=== PATIENT | male | born 1990 | race Caucasian/White ===

== ENCOUNTER 2021-04-23 11:25 | Emergency (ER) | payer OTHER, SELFPAY ==
[2021-04-23 11:26] VITALS: BP 166/100; PULSE 102; RESP 16; TEMP 36.9; O2SAT 98; BMI 32.1
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
[2021-04-23 12:25] VITALS: BP 159/91; PULSE 88; RESP 18; TEMP 36.6; O2SAT 98
== END 2021-04-23 12:27 | disposition home or self-care (01) ==
PROVIDERS: Emergency Provider Family Medicine; PCP Family Medicine
DX: S30.1XXA Contusion of abdominal wall, initial encounter (principal); S80.12XA Contusion of left lower leg, initial encounter; S40.012A Contusion of left shoulder, initial encounter; S40.011A Contusion of right shoulder, initial encounter; V53.5XXA Driver of pick-up truck or van injured in collision with car, pick-up truck or van in traffic accident, initial encounter; Y92.488 Other paved roadways as the place of occurrence of the external cause
CPT/HCPCS: 71045; 99282

== ENCOUNTER → 2021-04-25 11:42 | Outpatient (CLI) | payer OTHER, SELFPAY ==
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
== END ==
PROVIDERS: PCP Family Medicine; Visit Provider Family Medicine
DX: M25.512 Pain in left shoulder (principal); V89.2XXD Person injured in unspecified motor-vehicle accident, traffic, subsequent encounter
CPT/HCPCS: 73030

== ENCOUNTER → 2021-05-09 11:27 | Outpatient (CLI) | payer OTHER, SELFPAY ==
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
== END ==
PROVIDERS: PCP Family Medicine; Visit Provider Family Medicine
DX: M25.572 Pain in left ankle and joints of left foot (principal); V89.2XXD Person injured in unspecified motor-vehicle accident, traffic, subsequent encounter
CPT/HCPCS: 73590; 73610

== ENCOUNTER 2024-06-21 08:33 | Outpatient (CLI) | payer OTHER, SELFPAY ==
--- NOTE | 2024-06-21 08:33 | US_ITS ---
FINAL REPORT TECHNIQUE: Sonographic images of the abdomen were obtained in all four quadrants. CLINICAL HISTORY: Possible gallbladder or pancreas disease COMPARISON: None FINDINGS: LIVER: Homogeneous. No focal hepatic lesion or intrahepatic biliary dilatation. GALLBLADDER: No gallstones. There is either mild gallbladder wall thickening or a tiny amount of pericholecystic fluid. The common duct measures 4 mm. This is within normal limits for age. PANCREAS: Partially obscured but the visualized portions are unremarkable. RIGHT KIDNEY: 9.9 cm. No hydronephrosis, mass or stone. LEFT KIDNEY: 10.0 cm. No hydronephrosis, mass or stone. SPLEEN: 12 cm. No focal splenic lesion. AORTA/IVC: No abdominal aortic aneurysm. Visualized IVC within normal limits. OTHER: No ascites. IMPRESSION: Mild gallbladder wall thickening or possibly a very small amount of pericholecystic fluid. No gallstones or common duct dilation. Recommend clinical correlation and consider MRCP if indicated. Otherwise unremarkable abdominal ultrasound. Reviewed, Interpreted and Dictated by Chula Feliz MD Transcribed by Rosamaria Barillas Authenticated and [facility]
--- NOTE | 2024-06-21 08:47 | XR_ITS ---
FINAL REPORT CLINICAL HISTORY: back pain x 1 month, no known trauma FINDINGS: PA and lateral views of the chest are obtained. There is no prior exam for comparison. The cardiac and mediastinal silhouettes are within normal limits. The lungs are clear. There is no pleural effusion, pneumothorax, or acute osseous abnormality. IMPRESSION: No radiographic evidence of acute cardiac or pulmonary disease. Reviewed, Interpreted and Dictated by Chula Feliz MD Transcribed by Tuyet Chavez Authenticated and [facility]
--- NOTE | 2024-06-21 08:47 | XR_ITS ---
FINAL REPORT CLINICAL HISTORY: back pain x 1 month, no known trauma FINDINGS: AP and lateral views of the thoracic spine were obtained. There is no prior exam for comparison. There is no acute fracture or acute malalignment. Vertebral body height is preserved. Disc space height is preserved. No acute paraspinal abnormality. IMPRESSION: No acute osseous abnormality of the thoracic spine. Reviewed, Interpreted and Dictated by Chula Feliz MD Transcribed by Tuyet Chavez Authenticated and . [facility]
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
[2024-06-21 09:34] LABS: Basophils # 0.1 K/mm3 (0-0.2); Basophils % 0.5 % (0.1-2.0); Eosinophils # 0.2 K/mm3 (0.0-0.4); Eosinophils % 1.8 % (0.1-12.0); Hematocrit 46.4 % (42.0-52.0); Hemoglobin 15.2 g/dL (14.1-18.0); Lymphocytes # 2.5 K/mm3 (0.7-4.5); Lymphocytes % 25.5 % (10-50); Mean Corpuscular HGB Conc 32.8 g/dL (31.8-35.4); Mean Corpuscular Hemoglobin 28.1 pg (27.0-31.2); Mean Corpuscular Volume 85.8 fl (80-94); Mean Platelet Volume 10.7 fl (7.4-10.4); Monocytes # 0.7 K/mm3 (0.1-1.0); Monocytes % 6.7 % (1.7-9.3); Neutrophils # 6.3 K/mm3 (1.8-7.8); Neutrophils % 65.1 % (37.0-80.0); Platelet Count 285 K/mm3 (142-424); Red Blood Count 5.41 M/mm3 (4.60-6.20); White Blood Count 9.8 K/mm3 (4.8-10.8)
[2024-06-21 09:58] LABS: Albumin Level 4.3 g/dl (3.5-5.0); Chloride 107 mmol/L (98-107); Estimated Glomerular Filt Rate 63 ml/min (>60); GFR (African American) 76 ML/MIN (>60); Potassium 4.5 mmoL/L (3.5-5.1); Sodium 141 mmol/L (136-145); VLDL Cholesterol 16 mg/dL (0-40)
[2024-06-21 09:59] LABS: Alanine Aminotransferase 32 U/L (12-78); Alkaline Phosphatase 64 U/L (38-126); Aspartate Amino Transferase 30 U/L (17-59); Bilirubin,Total 0.9 mg/dl (0.2-1.3); Blood Urea Nitrogen 8 mg/dl (9-20); Calcium 9.3 mg/dl (8.4-10.2); Carbon Dioxide 28 mmol/L (22.0-30.0); Chol/HDL Ratio 4.5 (1-3.5); Cholesterol 177 mg/dl (140-200); Glucose 94 mg/dl (74-100); HDL Cholesterol 39 mg/dl (40-60); Total Protein,Serum 6.3 g/dl (6.3-8.2); Triglycerides 78 mg/dl (30-150)
[2024-06-21 10:04] LABS: Albumin/Globulin Ratio 2.2 (1.1-1.8); Anion Gap 10.5 mEq/L (5-15)
[2024-06-21 10:09] LABS: Direct LDL Cholesterol 118.46 mg/dL (100-129)
== END 2024-06-21 23:59 | disposition home or self-care (01) ==
PROVIDERS: PCP Family Medicine; Visit Provider Family Medicine
DX: M54.9 Dorsalgia, unspecified (principal)
CPT/HCPCS: 36415; 71046; 72070; 72100; 76700; 80053; 80061; 85025

== ENCOUNTER 2024-09-21 07:26 | Day surgery (SDC) | payer OTHER, SELFPAY ==
[2024-09-20 14:58] VITALS: BMI 34.4
[2024-09-21 07:47] VITALS: BP 158/106; PULSE 94; RESP 18; TEMP 36.3; O2SAT 100
--- NOTE | 2024-09-21 08:33 | P.HP_ITS ---
HPI HPI HPI: This is a 34-year-old gentleman who presents for esophagogastroduodenoscopy. He notes intermittent left upper quadrant/left flank pain. He also has experienced some recent dyspepsia/belching, as well as, nausea/vomiting. Some improvement noted on proton pump inhibition. No melena. No hematemesis. Recent ultrasound revealed mild gallbladder wall thickening and questionable small pericholecystic fluid. No fevers. No jaundice. No right upper quadrant pain. [facility] Disclaimer: The information contained in this section may have been updated after the patient was seen, as this information can be updated by other users. Medical History (Updated 09/21/24 @ 08:36 by Hal Jones MD) Upper abdominal pain History of esophageal dilatation Surgical History Hx of esophagogastroduodenoscopy Hx of tonsillectomy Family History No significant family history Social History Smoking Status: Never smoker alcohol intake: never substance use type: denies use current occupational status: employed Travel in the last 8 weeks: None Have you lived/traveled outside [place] in past 30 days?: No Contact w/someone who lives/traveled outside US past 30 days?: No Exposure to someone with infectious disease in past 14 days?: No Do you have a fever (greater than 100.4 F or 38 C)?: No Have you tested positive for COVID-19: No Exposed to someone with COVID-19 in past 14 days?: No Do you have a sore throat?: No Do you have a cough?: No Do you have any weakness?: No Are you experiencing any nausea/vomitting?: No Do you have any diarrhea?: No Are you experiencing any unusual bleeding?: No Do you have any muscle aches/pain?: No Do you have any abdominal pain?: No Are you experiencing loss of taste or smell?: No Other Medical History Have you received the Flu Vaccine for this season: No Have you received the Pneumonia Vaccine: No Review of Systems Review of Systems Review of systems:: pertinent systems reviewed and negative unless documented below Meds Home Medications and Allergies Home Medications ?Medication ?Instructions ?Recorded ?Confirmed ?Type omeprazole 40 mg capsule,delayed 40 mg PO BID reflux #60 caps 07/19/24 09/21/24 Rx release New Prescriptions to Start Prescriptions: Allergies Allergy/AdvReac Type Severity Reaction Status Date / Time Penicillins Allergy Other Verified 09/21/24 07:46 Sulfa (Sulfonamide Allergy Other Verified 09/21/24 07:46 Antibiotics) Exam Data for Last 24 hours Vital signs and Labs for Last 24 Hours: Temp Pulse Resp BP Pulse Ox O2 Del Method 97.3 F L 94 H 18 158/106 H 100 Room Air 09/21/24 07:47 09/21/24 07:47 09/21/24 07:47 09/21/24 07:47 09/21/24 07:47 09/21/24 07:47 I & O for Last 24 hours: Intake & Output 09/18/24 09/19/24 09/20/24 09/21/24 11:59 11:59 11:59 11:59 Weight 240 lb Constitutional Constitutional: no acute distress *Routine HEENT Exam Head: Present normocephalic Eye: Present EOMI ENT: Present mucous membranes moist *Routine Neck Exam Neck: Present full ROM *Routine Respiratory Exam Respiratory: Absent respiratory distress *Routine Cardiovascular Exam Cardiovascular: Absent tachycardia *Routine Abdominal Exam Abdominal: Present soft *Routine Rectal Exam Rectal:: deferred *Routine Genitalia Exam Genitalia:: deferred *Routine Extremities Exam Extremities: Present full ROM *Routine Skin Exam Skin: Absent erythema *Routine Neurological Exam Neurological: Present alert Assessment and Plan *Assessment and plan (1) Left flank pain: Status: Acute Category: Medical Code(s): R10.9 - Unspecified abdominal pain Plan: Continue proton pump enervation Esophagogastroduodenoscopy today I have discussed the risks and benefits including, but not limited to: Bleeding Infection Damage to surrounding tissue Inherent risks of sedation The patient agrees to proceed. (2) Left upper quadrant abdominal pain: Status: Acute Category: Medical Code(s): R10.12 - Left upper quadrant pain (3) Dyspepsia: Status: Acute Category: Medical Code(s): R10.13 - Epigastric pain (4) Cholecystitis, chronic: Status: Acute Category: Medical Code(s): K81.1 - Chronic cholecystitis Plan: Discussion with regard to possible cholecystectomy will be ongoing
[2024-09-21 08:37] VITALS: O2SAT 100
[2024-09-21 08:53] VITALS: BP 150/96; PULSE 92; RESP 17; TEMP 36.6; O2SAT 93
--- NOTE | 2024-09-21 08:53 | HMH.SCOPE ---
Procedure: Date: 09/21/24 Patient Date of :: 1990 Procedure Performed:: Esophagogastroduodenoscopy with biopsy Indications:: Left upper quadrant pain Dyspepsia Abdominal bloating Performing Provider:: Hal Jones MD Referring Provider:: . Sedation:: Monitored anesthesia care Procedure:: After informed consent was obtained the patient was taken to the endoscopy suite. Sedation ensued after the patient was transferred to the left lateral decubitus position. Pulse, blood pressure, and oxygen saturation were monitored throughout the procedure. The endoscope was advanced beyond the duodenal bulb. Retroflexion within the gastric lumen was accomplished. The gastroscope was carefully removed and the patient was transferred to recovery in stable condition. Please see findings and specimens below for detail. Findings:: Gastroesophageal junction at 40 cm Small distal esophageal diverticulae Gastroesophageal junction polyp Small sliding hiatal hernia Moderate amount of food particles within the stomach Specimens:: Antral biopsy Gastroesophageal junction polyp (cold biopsy forceps) Recommendations:: Follow-up pathology Note recent ultrasound findings consistent with possible chronic cholecystitis. Discussion with regard to possible laparoscopic cholecystectomy in near future will be ongoing. Complications:: No immediate Estimated blood obtained (mL): 1 Colonoscopy Component Colonoscopy Component Was a colonoscopy performed during today's procedure?: No
[2024-09-21 09:03] VITALS: BP 139/88; PULSE 89; RESP 17; O2SAT 94
[2024-09-21 09:13] VITALS: BP 152/99; PULSE 86; O2SAT 96
[2024-09-21 09:23] VITALS: BP 146/73; PULSE 77; RESP 17; O2SAT 96
--- NOTE | 2024-09-21 09:29 | P.PNANES_ITS ---
[facility] Disclaimer: The information contained in this section may have been updated after the patient was seen, as this information can be updated by other users. Medical History (Updated 09/21/24 @ 08:36 by Hal Jones MD) Upper abdominal pain History of esophageal dilatation Surgical History Hx of esophagogastroduodenoscopy Hx of tonsillectomy Family History Other No significant family history Social History Smoking Status: Never smoker alcohol intake: never substance use type: denies use current occupational status: employed Travel in the last 8 weeks: None [facility] Anesthesia Checklist Patient Identification Patient Identification: Verbal (Name & ) Structural Data Admitted From: Home Planned Operative Procedure/s: egd NPO Status Verified Time NPO: 00:00 Airway Assessment Mallampati Score:: Class II C-Spine Mobility Assessed: Yes TMJ Mobility Assessed: Yes Dentition: Good Dentition Neurological Assessment Level of Consciousness: Awake, Alert and Appropriate Anesthesia Plan Anesthesia Risk discussed: Yes Anesthesia Plan: Verified ASA Class: II Anesthesia Type: MAC
== END 2024-09-21 09:27 | disposition home or self-care (01) ==
PROVIDERS: PCP Family Medicine; Visit Provider Surgery
PROC: 0DJ08ZZ Inspection of Upper Intestinal Tract, Via Natural or Artificial Opening Endoscopic (ICD-10-PCS; CPT 43239; principal; 2024-09-21 08:30)
DX: R10.12 Left upper quadrant pain (principal); K81.1 Chronic cholecystitis; K30 Functional dyspepsia; R11.2 Nausea with vomiting, unspecified; R14.0 Abdominal distension (gaseous); K57.90 Diverticulosis of intestine, part unspecified, without perforation or abscess without bleeding; K31.7 Polyp of stomach and duodenum
CPT/HCPCS: 43239

== ENCOUNTER 2025-04-26 12:27 | Outpatient (CLI) | payer OTHER, SELFPAY ==
--- OUTSIDE RECORDS SUMMARY | 2025-04-26 12:30 | XMS_ITS | Clinical Summary ---
Author Organization [facility] Address [address] [place] [address] Care Team Providers Care Agricultural Equipment Test Engineer Name Role Phone Robbie Ca MD Primary Care Provider [phone] Allergies Active Allergy Reactions Criticality Noted Date Comments Penicillins Hives Low 12/19/2024 Has tolerated cefazolin, ceftriaxone Most patients no longer allergic to penicillin after ~10 years Beta lactam allergy details Antibiotic reaction: rash Age at reaction: child Dose to reaction time: unknown Reason for antibiotic: unknown Epinephrine required for reaction?: unknown Tolerated antibiotics: cefazolin, ceftriaxone Sulfa Antibiotics Hives 12/19/2024 Medications oxyCODONE-aceta minophen (PERCOCET) 5-325 MG per tabletIndicatio ns:Choledocholi thiasis Take 1 tablet by mouth Every 4 (Four) Hours As Needed for Severe Pain. 17 tablet 12/25/2024 10:51 AM EDT 12/25/2024 Active docusate sodium (COLACE) 100 MG capsule Take 1 capsule by mouth 2 (Two) Times a Day. 60 capsule 12/25/2024 10:51 AM EDT 12/25/2024 Active ondansetron (ZOFRAN) 4 MG tablet Take 1 tablet by mouth Every 8 (Eight) Hours As Needed for Nausea or Vomiting. 30 tablet 12/25/2024 10:51 AM EDT 12/25/2024 Active Active Problems Problem Noted Date Diagnosed Date Severe protein-calorie malnutrition 01/20/2025 Abdominal pain 12/28/2024 Sepsis without acute organ dysfunction Bandemia 12/27/2024 Dehydration 12/27/2024 Nausea with vomiting 12/27/2024 Post-ERCP acute pancreatitis 12/23/2024 Choledocholithiasis 12/21/2024 Encounters Date Type Department Care Team Description 12/27/2024 6:33 PM EDT - 02/10/2025 4:11 AM EDT Hospital Encounter [address] [place] [id number] Vipul Alves DO Gay, Bryce, DO Burgess, Eva, MD Scott, MD Sunitha Benton Oshuare, MD Cordray, Ann, MD West, MD Sammie Guadalupe M Scott, DO Generalized abdominal pain (Primary Dx); Leukocytosis, unspecified type; Status post cholecystectomy; Nausea and vomiting, unspecified vomiting type; Moderate protein-calorie malnutrition; Post-ERCP acute pancreatitis Discharge Disposition: Short Term Hospital (DC) from Last 3 Months Social History Tobacco Use Types Packs/Day Years Used Date Smoking Tobacco: Never Smokeless Tobacco: Never Tobacco Cessation:Counseling Given: Not Answered Alcohol Use Standard Drinks/Week Comments Never 0 (1 standard drink = 0.6 oz pur e alcohol) [facility] Utilities Answer Date Recorded In the past 12 months has [employer], gas, oil, or water [employer] threatened to shut off services in your home? No 12/21/2024 AUDIT-C Answer Date Recorded Q1: How often do you have a drink containing alcohol? Never 12/27/2024 Q2: How many drinks containi ng alcohol do you have on a typical day when you are drinking? Patient does not drink Q3: How often do you have si x or more drinks on one occasion? Never 12/27/2024 Overall Financial Resource Strain (CARDIA) Answe r Date Recorded How hard is it for you to pa y for the very basics like food, housing, medical care, and heating? Not hard at all 12/21/2024 [facility] Occup[facility] ional [facility] - Occupational Stress Questionnaire Answer Date Recorded Do you feel stress - tense, restless, nervous, or anxious, or unable to sleep at night because your mind is troubled all the time - these days? Only a little 12/21/2024 Exercise Vital Sign Answer Date Recorde d On average, how many days pe r week do you engage in moderate to strenuous exercise (like a brisk walk)? 7 days 12/21/2024 On average, how many minutes do you engage in exercise at this level? 30 min 12/21/2024 Hunger Vital Sign Answer Date Recorded Within the past 12 months, y ou worried that your food would run out before you got the money to buy more. Never true 12/22/19 25 Within the past 12 months, t he food you bought just didn't last and you didn't have money to get more. Never true 12/21/2024 PRAPARE - Transportation Answer Date Re corded In the past 12 months, has l ack of transportation kept you from medical appointments or from getting medications? No 06/2024 In the past 12 months, has l ack of transportation kept you from meetings, work, or from getting things needed for daily living? No 12/21/2024 Abuse Screen Answer Date Recorded Feels Unsafe at Home or Work/School no 12/27/2024 Feels Threatened by Someone no 12/2024 Does Anyone Try to Keep You From Having Contact with Others or Doing Things Outside Your Home? no 12/27/2024 Physical Signs of Abuse Present no 12/27/2024 Housing Stability Answer Date Recorded Current Living Arrangements home 12/21 Potentially Unsafe Housing Conditions none 01/03/2025 Family and Community Support Answer Willian e Recorded If for any reason you need h elp with day-to-day activities such as bathing, preparing meals, shopping, managing finances, etc., do you get the help you need? I don't need any help 12/21/2024 Lonely or Isolated Not on file 12/21/2024 Employment Answer Date Recorded Do you want help finding or keeping work or a job? I do not need or want help 12/21/2024 Disabilities Answer Date Recorded Difficulty Concentrating, Remembering or Making Decisions no 12/27/2024 Difficulty Managing Errands Independently no 12/27/2024 Education Answer Date Recorded Do you want help with school or training? For example, starting or completing job training or getting a high school diploma, GED or equivalent No 12/21/2024 Preferred Language Stateless 12/21/2024 PHQ-2 Answer Date Recorded Patient Health Questionnaire-2 Score 0 12/21/2024 Sex and Gender Information Value Date Recorded Sex Assigned at Not on file Legal Sex Male 4:40 PM EDT Gender Identity Not on file Sexual Orientation Not on file Last Filed Vital Signs Vital Sign Reading Time Taken Comments Blood Pressure 117/81 02/10/2025 3:00 AM EDT Pulse 118 02/10/2025 3:00 AM EDT Temperature 36.7 C (98.1 F) 02/10/2025 3:00 AM EDT Respiratory Rate 18 02/10/2025 3:00 AM EDT Oxygen Saturation 98% 02/10/2025 3:00 AM EDT Inhaled Oxygen Concentration - - Weight 116 kg (255 lb 6.4 oz) 02/09/2025 5:00 AM EDT Height 177.8 cm (5' 10 ) 12/27/2024 2:55 PM EDT Body Mass Index 36.65 12/27/2024 2:55 PM EDT Plan of Treatment Health Maintenance Due Date Last Done Comments ANNUAL PHYSICAL 1989 TDAP/TD VACCINES (1 - Tdap) 2008 INFLUENZA VACCINE 01/21/2025 HEPATITIS C SCREENING Completed 12/19/2024 Pneumococcal Vaccine 0-49 Aged Out No longer eligible based on patient's age to complete this topic Medical Devices Implanted Type Area Dry End Operator Device Identifier Shelf Expiration Date Model / Serial / Lot Clipapplr M/ Endo Ligaclip Rot 10mm /Lg - [id number] Implanted:Qty : 1 on 12/23/2024 by Yefri Heller MD at [facility] Implant N/A: Abdomen [employer] [id number] 08/20/2029 [id number] / / [id number] Procedures Procedure Name Priority Date/Time Associated Diagnosis Comments POCT GLUCOSE FINGERSTICK Routine 02/10/2025 12:22 AM EDT POCT GLUCOSE FINGERSTICK Routine 02/09/2025 5:39 PM EDT BODY FLUID CULTURE Routine 02/09/2025 2: 20 PM EDT BODY FLUID CULTURE Routine 02/09/2025 2: 20 PM EDT POCT GLUCOSE FINGERSTICK Routine 02/09/2025 11:22 AM EDT POCT GLUCOSE FINGERSTICK Routine 02/09/2025 5:20 AM EDT CBC AND DIFFERENTIAL Routine 02/09/2025 3:39 AM EDT MANUAL DIFFERENTIAL STAT 02/09/2025 3 :39 AM EDT CBC WITH AUTO DIFFERENTIAL Routine 02/09/2025 3:39 AM EDT COMPREHENSIVE METABOLIC PANEL Routine 02/09/2025 3:39 AM EDT MAGNESIUM Routine 02/09/2025 3:39 AM EDT POCT GLUCOSE FINGERSTICK Routine 02/08/2025 11:47 PM EDT POCT GLUCOSE FINGERSTICK Routine 02/08/2025 12:37 PM EDT POCT GLUCOSE FINGERSTICK Routine 02/08/2025 5:15 AM EDT COMPREHENSIVE METABOLIC PANEL Routine 02/08/2025 3:03 AM EDT MAGNESIUM Routine 02/08/2025 3:03 AM EDT CBC AND DIFFERENTIAL Routine 02/08/2025 3:02 AM EDT MANUAL DIFFERENTIAL STAT 02/08/2025 3 :02 AM EDT CBC WITH AUTO DIFFERENTIAL Routine 02/08/2025 3:02 AM EDT POCT GLUCOSE FINGERSTICK Routine 02/07/2025 11:56 PM EDT POCT GLUCOSE FINGERSTICK Routine 02/07/2025 5:[address] ABDOMEN PELVIS W CONTRAST Routine 02/07/2025 2:14 PM EDT POCT GLUCOSE FINGERSTICK Routine 02/07/2025 11:48 AM EDT BLOOD CULTURE Routine 02/07/2025 11:30 AM EDT POCT GLUCOSE FINGERSTICK Routine 02/07/2025 5:40 AM EDT CBC AND DIFFERENTIAL Routine 02/07/2025 3:52 AM EDT LIPASE Add-On 02/07/2025 3:52 AM EDT MANUAL DIFFERENTIAL STAT 02/07/2025 3 :52 AM EDT CBC WITH AUTO DIFFERENTIAL Routine 02/07/2025 3:52 AM EDT MAGNESIUM Routine 02/07/2025 3:52 AM EDT C-REACTIVE PROTEIN Routine 02/07/2025 3: 52 AM EDT COMPREHENSIVE METABOLIC PANEL Routine 02/07/2025 3:52 AM EDT POCT GLUCOSE FINGERSTICK Routine 02/06/2025 11:39 PM EDT POCT GLUCOSE FINGERSTICK Routine 02/06/2025 6:00 PM EDT POCT GLUCOSE FINGERSTICK Routine 02/06/2025 11:34 AM EDT POCT GLUCOSE FINGERSTICK Routine 02/06/2025 4:59 AM EDT COMPREHENSIVE METABOLIC PANEL Routine 02/06/2025 3:04 AM EDT CBC (NO DIFF) Routine 02/06/2025 3:04 AM EDT POCT GLUCOSE FINGERSTICK Routine 02/06/2025 12:46 AM EDT POCT GLUCOSE FINGERSTICK Routine 02/05/2025 5:07 AM EDT BASIC METABOLIC PANEL Routine 02/05/2025 3:01 AM EDT POCT GLUCOSE FINGERSTICK Routine 02/05/2025 12:00 AM EDT POCT GLUCOSE FINGERSTICK Routine 02/04/2025 5:08 PM EDT POCT GLUCOSE FINGERSTICK Routine 02/04/2025 11:09 AM EDT POCT GLUCOSE FINGERSTICK Routine 02/04/2025 5:02 AM EDT C-REACTIVE PROTEIN Routine 02/04/2025 3: 32 AM EDT COMPREHENSIVE METABOLIC PANEL Routine 02/04/2025 3:32 AM EDT CBC (NO DIFF) Routine 02/04/2025 3:32 AM EDT POCT GLUCOSE FINGERSTICK Routine 02/04/2025 12:34 AM EDT POCT GLUCOSE FINGERSTICK Routine 02/03/2025 6:05 PM EDT POCT GLUCOSE FINGERSTICK Routine 02/03/2025 11:49 AM EDT POCT GLUCOSE FINGERSTICK Routine 02/03/2025 5:26 AM EDT POCT GLUCOSE FINGERSTICK Routine 02/03/2025 12:21 AM EDT POCT GLUCOSE FINGERSTICK Routine 02/02/2025 5:31 PM EDT C-REACTIVE PROTEIN Routine 02/02/2025 4: 17 PM EDT PREALBUMIN Routine 02/02/2025 4:17 PM EDT POCT GLUCOSE FINGERSTICK Routine 02/02/2025 11:59 AM EDT POCT GLUCOSE FINGERSTICK Routine 02/02/2025 6:12 AM EDT CBC AND DIFFERENTIAL Routine 02/02/2025 3:49 AM EDT CBC WITH AUTO DIFFERENTIAL Routine 02/02/2025 3:49 AM EDT PHOSPHORUS Routine 02/02/2025 3:49 AM EDT MAGNESIUM Routine 02/02/2025 3:49 AM EDT BASIC METABOLIC PANEL Routine 02/02/2025 3:49 AM EDT POCT GLUCOSE FINGERSTICK Routine 02/01/2025 11:48 PM EDT POCT GLUCOSE FINGERSTICK Routine 02/01/2025 6:20 PM EDT POCT GLUCOSE FINGERSTICK Routine 02/01/2025 11:10 AM EDT POCT GLUCOSE FINGERSTICK Routine 02/01/2025 5:15 AM EDT CBC AND DIFFERENTIAL Routine 02/01/2025 3:43 AM EDT SCAN SLIDE Routine 02/01/2025 3:43 AM EDT CBC WITH AUTO DIFFERENTIAL Routine 02/01/2025 3:43 AM EDT PHOSPHORUS Routine 02/01/2025 3:43 AM EDT MAGNESIUM Routine 02/01/2025 3:43 AM EDT BASIC METABOLIC PANEL Routine 02/01/2025 3:43 AM EDT POCT GLUCOSE FINGERSTICK Routine 01/31/2025 11:15 PM EDT POCT GLUCOSE FINGERSTICK Routine 01/31/2025 6:10 PM EDT POCT GLUCOSE FINGERSTICK Routine 01/31/2025 11:37 AM EDT POCT GLUCOSE FINGERSTICK Routine 01/31/2025 5:27 AM EDT CBC AND DIFFERENTIAL Routine 01/31/2025 3:42 AM EDT MANUAL DIFFERENTIAL STAT 01/31/2025 3 :42 AM EDT CBC WITH AUTO DIFFERENTIAL Routine 01/31/2025 3:42 AM EDT COMPREHENSIVE METABOLIC PANEL Routine 01/31/2025 3:[address] ABDOMEN W WO CONTRAST Routine 01/31/2025 2:58 AM EDT POCT GLUCOSE FINGERSTICK Routine 01/31/2025 12:02 AM EDT POCT GLUCOSE FINGERSTICK Routine 01/30/2025 4:13 PM EDT POCT GLUCOSE FINGERSTICK Routine 01/30/2025 11:52 AM EDT CBC AND DIFFERENTIAL Routine 01/30/2025 8:57 AM EDT CBC WITH AUTO DIFFERENTIAL Routine 01/30/2025 8:57 AM EDT COMPREHENSIVE METABOLIC PANEL Routine 01/30/2025 8:57 AM EDT POCT GLUCOSE FINGERSTICK Routine 01/30/2025 5:27 AM EDT POCT GLUCOSE FINGERSTICK Routine 01/29/2025 11:40 PM EDT POCT GLUCOSE FINGERSTICK Routine 01/29/2025 5:29 PM EDT POCT GLUCOSE FINGERSTICK Routine 01/29/2025 11:04 AM EDT POCT GLUCOSE FINGERSTICK Routine 01/29/2025 5:21 AM EDT CBC AND DIFFERENTIAL Routine 01/29/2025 4:12 AM EDT CBC WITH AUTO DIFFERENTIAL Routine 01/29/2025 4:12 AM EDT COMPREHENSIVE METABOLIC PANEL Routine 01/29/2025 4:12 AM EDT POCT GLUCOSE FINGERSTICK Routine 01/28/2025 11:39 PM EDT POCT GLUCOSE FINGERSTICK Routine 01/28/2025 5:22 PM EDT POCT GLUCOSE FINGERSTICK Routine 01/28/2025 11:03 AM EDT POCT GLUCOSE FINGERSTICK Routine 01/28/2025 5:37 AM EDT CBC AND DIFFERENTIAL Routine 01/28/2025 3:36 AM EDT CBC WITH AUTO DIFFERENTIAL Routine 01/28/2025 3:36 AM EDT COMPREHENSIVE METABOLIC PANEL Routine 01/28/2025 3:36 AM EDT POCT GLUCOSE FINGERSTICK Routine 01/27/2025 11:50 PM EDT POCT GLUCOSE FINGERSTICK Routine 01/27/2025 5:43 PM EDT POCT GLUCOSE FINGERSTICK Routine 01/27/2025 11:48 AM EDT POCT GLUCOSE FINGERSTICK Routine 01/27/2025 5:05 AM EDT CBC AND DIFFERENTIAL Routine 01/27/2025 3:41 AM EDT CBC WITH AUTO DIFFERENTIAL Routine 01/27/2025 3:41 AM EDT SEDIMENTATION RATE Routine 01/27/2025 3: 41 AM EDT COMPREHENSIVE METABOLIC PANEL Routine 01/27/2025 3:40 AM EDT POCT GLUCOSE FINGERSTICK Routine 01/26/2025 11:26 PM EDT POCT GLUCOSE FINGERSTICK Routine 01/26/2025 6:13 PM EDT POCT GLUCOSE FINGERSTICK Routine 01/26/2025 11:04 AM EDT POCT GLUCOSE FINGERSTICK Routine 01/26/2025 5:33 AM EDT CBC AND DIFFERENTIAL Routine 01/26/2025 3:41 AM EDT CBC WITH AUTO DIFFERENTIAL Routine 01/26/2025 3:41 AM EDT COMPREHENSIVE METABOLIC PANEL Routine 01/26/2025 3:41 AM EDT POCT GLUCOSE FINGERSTICK Routine 01/25/2025 11:35 PM EDT POCT GLUCOSE FINGERSTICK Routine 01/25/2025 11:38 AM EDT POCT GLUCOSE FINGERSTICK Routine 01/25/2025 5:05 AM EDT CBC AND DIFFERENTIAL Routine 01/25/2025 3:27 AM EDT CBC WITH AUTO DIFFERENTIAL Routine 01/25/2025 3:27 AM EDT PHOSPHORUS Routine 01/25/2025 3:27 AM EDT MAGNESIUM Routine 01/25/2025 3:27 AM EDT COMPREHENSIVE METABOLIC PANEL Routine 01/25/2025 3:27 AM EDT POCT GLUCOSE FINGERSTICK Routine 01/25/2025 12:09 AM EDT POCT GLUCOSE FINGERSTICK Routine 01/24/2025 5:36 PM EDT C-REACTIVE PROTEIN Routine 01/24/2025 4: 30 PM EDT PREALBUMIN Routine 01/24/2025 4:30 PM EDT NUTRITION PANEL Routine 01/24/2025 4:30 PM EDT POCT GLUCOSE FINGERSTICK Routine 01/24/2025 12:54 PM EDT BODY FLUID CELL COUNT Routine 01/24/2025 11:55 AM EDT AMYLASE, BODY FLUID Routine 01/24/2025 1 1:55 AM EDT BODY FLUID CELL COUNT WITH DIFFERENTIAL Routine 01/24/2025 11:55 AM EDT FUNGAL CULTURE Routine 01/24/2025 11:55 AM EDT ANAEROBIC CULTURE Routine 01/24/2025 11: 55 AM EDT BODY FLUID CULTURE Routine 01/24/2025 11 :[address] GUIDED PERCUTANEOUS DRAIN RETROPERITONEAL Routine 01/24/2025 11:53 AM EDT PROTIME-INR STAT 01/24/2025 9:24 AM EDT POCT GLUCOSE FINGERSTICK Routine 01/24/2025 5:29 AM EDT CBC AND DIFFERENTIAL Routine 01/24/2025 3:22 AM EDT CBC WITH AUTO DIFFERENTIAL Routine 01/24/2025 3:22 AM EDT PHOSPHORUS Routine 01/24/2025 3:22 AM EDT MAGNESIUM Routine 01/24/2025 3:22 AM EDT COMPREHENSIVE METABOLIC PANEL Routine 01/24/2025 3:22 AM EDT HEPATITIS PANEL, ACUTE Add-On 4:53 PM EDT from Last 3 Months or Most Recently Relevant to Health Maintenance Results * (ABNORMAL) POC Glucose Q6H (02/10/2025 12:22 AM EDT) Only the most recent of64 resultswithin the time period is included. Glucose 139(H) 70 - 130 mg/dL 02/10/2025 12:24 AM EDT [facility] Comment:Serial Number: [id number] Blood 02/10/2025 12:2 2 AM EDT 02/10/2025 12:24 AM EDT Cheri Munguia MD POINT OF CARE TEST ORDERABLES Fi nal Result [facility]
[address] [place] [address], * Body Fluid Culture - Body Fluid, Retroperitoneum (02/09/2025 2:20 PM EDT) Only the most recent of3 resultswithin the time period is included. Body Fluid Culture No growth at 3 days 02/12/2025 10:02 AM EDT [facility] Gram Stain No WBCs or organisms seen 02/12/2025 10:02 AM EDT [facility] Body Fluid Retroperitoneal compartment structure / Unknown Collection / Unknown 02/09/2025 2:20 PM EDT 02/09/2025 3:18 PM EDT Jose De Jesus Shaw MD MICROBIOLOGY - GENERAL ORD ERABLES Final Result [facility]
[address] [place] [address], [place] [phone] [facility]
[address] [place] [address], * (ABNORMAL) CBC Auto Differential (02/09/2025 3:39 AM EDT) Only the most recent of13 resultswithin the time period is included. WBC 10.65 3.40 - 10.80 10*3/mm3 02/09/2025 6:48 AM EDT [facility] RBC 3.19(L) 4.14 - 5.80 10*6/mm3 02/09/2025 6:48 AM EDT [facility] Hemoglobin 9.0(L) 13.0 - 17.7 g/dL 02/09/2025 6:48 AM EDT [facility] Hematocrit 29.1(L) 37.5 - 51.0 % 02/09/2025 6:48 AM EDT [facility] MCV 91.2 79.0 - 97.0 fL 02/09/2025 6:48 AM EDT [facility] MCH 28.2 26.6 - 33.0 pg 02/09/2025 6:48 AM EDT [facility] MCHC 30.9(L) 31.5 - 35.7 g/dL 02/09/2025 6:48 AM EDT [facility] RDW 22.0(H) 12.3 - 15.4 % 02/09/2025 6:48 AM EDT [facility] RDW-SD 70.1(H) 37.0 - 54.0 fl 02/09/2025 6:48 AM EDT [facility] MPV 9.9 6.0 - 12.0 fL 02/09/2025 6:48 AM EDT [facility] Platelets 210 140 - 450 10*3/mm3 02/09/2025 6:48 AM EDT [facility] Blood Venipuncture / Unknown 02/09/2025 3:39 AM EDT 02/09/2025 4:35 AM EDT Narrative [facility] - 02/09/2025 6:48 AM EDT The previously reported component NRBC is no longer being reported. Previous result was 0.0 /100 WBC (Reference Range: 0.0-0.2 /100 WBC) on 02/09/2025 at 0447 EDT. Oli Cochran DO LAB BLOOD ORDERABLES Final Res ult [facility]
[address] [place] [address], * (ABNORMAL) Manual Differential (02/09/2025 3:39 AM EDT) Only the most recent of4 resultswithin the time period is included. Neutrophil % 66.0 42.7 - 76.0 % 02/09/2025 6:48 AM EDT [facility] Lymphocyte % 4.0(L) 19.6 - 45.3 % 02/09/2025 6:48 AM EDT [facility] Monocyte % 9.0 5.0 - 12.0 % 02/09/2025 6:48 AM EDT [facility] Eosinophil % 2.0 0.3 - 6.2 % 02/09/2025 6:48 AM EDT [facility] Basophil % 1.0 0.0 - 1.5 % 02/09/2025 6:48 AM EDT [facility] Bands % 15.0(H) 0.0 - 5.0 % 02/09/2025 6:48 AM EDT [facility] Atypical Lymphocyte % 3.0 0.0 - 5.0 % 02/09/2025 6:48 AM EDT [facility] Neutrophils Absolute 8.63(H) 1.70 - 7.00 10*3/mm3 02/09/2025 6:48 AM EDT [facility] Lymphocytes Absolute 0.75 0.70 - 3.10 10*3/mm3 02/09/2025 6:48 AM EDT [facility] Monocytes Absolute 0.96(H) 0.10 - 0.90 10*3/mm3 02/09/2025 6:48 AM EDT [facility] Eosinophils Absolute 0.21 0.00 - 0.40 10*3/mm3 02/09/2025 6:48 AM EDT [facility] Basophils Absolute 0.11 0.00 - 0.20 10*3/mm3 02/09/2025 6:48 AM EDT [facility] Anisocytosis Slight/1+ None Seen 02/09/2025 6:48 AM EDT [facility] Smudge Cells Slight/1+ None Seen 02/09/2025 6:48 AM EDT [facility] Vacuolated Neutrophils Slight/1+ None Seen 02/09/2025 6:48 AM EDT [facility] Clumped Platelets Present None Seen 02/09/2025 6:48 AM EDT [facility] Blood Venipuncture / Unknown 02/09/2025 3:39 AM EDT 02/09/2025 4:35 AM EDT us Oli Cochran DO LAB BLOOD ORDERABLES Final Res ult [facility]
[address] [place] [address], * Magnesium (02/09/2025 3:39 AM EDT) Only the most recent of7 resultswithin the time period is included. Magnesium 1.7 1.6 - 2.6 mg/dL 02/09/2025 5:14 AM EDT [facility] Blood Venipuncture / Unknown 02/09/2025 3:39 AM EDT 02/09/2025 4:38 AM EDT us Ezra Cochran DO LAB BLOOD ORDERABLES Final Res ult [facility]
[address] [place] [address], * (ABNORMAL) Comprehensive Metabolic Panel (02/09/2025 3:39 AM EDT) Only the most recent of13 resultswithin the time period is included. Pathologist [facility] Glucose 126(H) 65 - 99 mg/dL 02/09/2025 5:14 AM EDT [facility] BUN 14.6 6.0 - 20.0 mg/dL 02/09/2025 5:14 AM EDT [facility] Creatinine 0.72(L) 0.76 - 1.27 mg/dL 02/09/2025 5:14 AM EDT [facility] Sodium 127(L) 136 - 145 mmol/L 02/09/2025 5:14 AM EDT [facility] Potassium 4.1 3.5 - 5.2 mmol/L 02/09/2025 5:14 AM EDT [facility] Comment:Specimen hemolyzed. Result may be falsely elevated. Chloride 98 98 - 107 mmol/L 02/09/2025 5:14 AM EDT [facility] CO2 22.5 22.0 - 29.0 mmol/L 02/09/2025 5:14 AM EDT [facility] Calcium 7.1(L) 8.6 - 10.5 mg/dL 02/09/2025 5:14 AM EDT [facility] Total Protein 5.2(L) 6.0 - 8.5 g/dL 02/09/2025 5:14 AM [facility] Albumin 1.8(L) 3.5 - 5.2 g/dL 02/09/2025 5:14 AM [facility] ALT (SGPT) 20 1 - 41 U/L 02/09/2025 5:14 AM [facility] AST (SGOT) 34 1 - 40 U/L 02/09/2025 5:14 AM [facility] Alkaline Phosphatase 185(H) 39 - 117 U/L 02/09/2025 5:14 AM [facility] Total Bilirubin 0.5 0.0 - 1.2 mg/dL 02/09/2025 5:14 AM [facility] Globulin 3.4 gm/dL 02/09/2025 5:14 AM [facility] Comment:Calculated Result A/G Ratio 0.5 g/dL 02/09/2025 5:14 AM [facility] BUN/Creatinine Ratio 20.3 7.0 - 25.0 02/09/2025 5:14 AM [facility] Anion Gap 6.5 5.0 - 15.0 mmol/L 02/09/2025 5:14 AM [facility] eGFR 122.2 >60.0 mL/min/1.7 3 02/09/2025 5:14 AM [facility] Blood Venipuncture / Unknown 02/09/2025 3:39 AM EDT 02/09/2025 4:38 AM T [facility] - 02/09/2025 5:14 AM EDT GFR Categories in Chronic Kidney Disease (CKD) GFR Category GFR (mL/min/1.73) Interpretation G1 90 or greater Normal or high (1) G2 60-89 Mild decrease (1) G3a 45-59 Mild to moderate decrease G3b 30-44 Moderate to severe decrease G4 15-29 Severe decrease G5 14 or less Kidney failure (1)In the absence of evidence of kidney disease, neither GFR category G1 or G2 fulfill the criteria for CKD. eGFR calculation 2020 CKD-EPI creatinine equation, which does not include race as a factor us Oli Cochran DO LAB BLOOD ORDERABLES Final Res ult [facility]
[id number] [id number], * CT Abdomen Pelvis With Contrast (02/07/2025 2:14 PM EDT) Anatomical Region Laterality Modality Abdomen, Pelvis N/A Computed Tomogra phy 02/07/2025 4:53 PM EDT Impressions 02/07/2025 5:07 PM EDT Impression: Interval removal of percutaneous drain at the gallbladder fossa with similar appearing gas and fluid collection. Mild interval decrease in size of bilateral flank rim-enhancing collections with percutaneous drains in place. These collections appear contiguous with other similar fluid collections insinuating throughout the retroperitoneum and peritoneal cavity. Similar moderate volume ascites. Interval decreased moderate left pleural effusion and interval development of a small right pleural effusion with adjacent atelectasis. Diffuse anasarca. Electronically Signed: Estiven Harrington MD 02/07/2025 5:07 PM EDT Workstation ID: [id number] Narrative 02/07/2025 5:[address] ABDOMEN PELVIS W CONTRAST Date of Exam: 02/07/2025 1:47 PM EDT Indication: follow up pancreatitis and abodminal abscesses. Comparison: CT abdomen 01/31/2025 Technique: Axial CT images were obtained of the abdomen and pelvis following the uneventful intravenous administration of iodinated contrast. Reconstructed coronal and sagittal images were also obtained. Automated exposure control and iterative construction methods were used. Findings: Included Chest: Interval decreased moderate left pleural effusion and interval development of a small right pleural effusion with adjacent atelectasis. Liver: No significant abnormality. Gallbladder and biliary tree: Cholecystectomy. Interval removal of percutaneous drain at the gallbladder fossa with similar appearing gas and fluid collection. Spleen: No significant abnormality. Pancreas: No significant abnormality. Adrenal glands: No significant abnormality. Kidneys and ureters: No significant abnormality. Stomach and duodenum: Enteric tube terminates in the jejunum. Small and large bowel: No evidence of bowel obstruction. Positive oral contrast opacifies the small bowel. No findings to suggest acute appendicitis. Peritoneal cavity: Similar moderate volume ascites. No free air. Bilateral flank rim-enhancing collections containing complex fluid, fat, and gas (left greater than right) with percutaneous drains in place. These fluid collections similarly appear contiguous with other similar fluid collections insinuating throughout the retroperitoneum and peritoneal cavity. The right flank collection measures 17 x 10 cm (TV by AP), previously 17 x 12 cm when measured similarly. The left flank collection measures 16 x 4 cm (TV by AP), previously 17 x 6 cm when measured similarly. Bladder: Under distended and incompletely evaluated. Pelvic organs: No significant abnormality. Vasculature: Atherosclerotic calcifications. Lymph nodes: No pathologic appearing lymph nodes by imaging criteria. Bones and soft tissues: Degenerative changes of the imaged spine. No acute osseous abnormality. Diffuse anasarca Procedure Note Estiven Harrington MD - 02/07/2025 CT ABDOMEN PELVIS W CONTRAST Date of Exam: 02/07/2025 1:47 PM EDT Indication: follow up pancreatitis and abodminal abscesses. Comparison: CT abdomen 01/31/2025 Technique: Axial CT images were obtained of the abdomen and pelvisfollowing the uneventful intravenous administration of iodinated contrast.Reconstructed coronal and sagittal images were also obtained. Automatedexposure control and iterative construction methods were used. Findings: Included Chest: Interval decreased moderate left pleural effusion andinterval development of a small right pleural effusion with adjacentatelectasis. Liver: No significant abnormality. Gallbladder and biliary tree: Cholecystectomy. Interval removal ofpercutaneous drain at the gallbladder fossa with similar appearing gas andfluid collection. Spleen: No significant abnormality. Pancreas: No significant abnormality. Adrenal glands: No significant abnormality. Kidneys and ureters: No significant abnormality. Stomach and duodenum: Enteric tube terminates in the jejunum. Small and large bowel: No evidence of bowel obstruction. Positive oralcontrast opacifies the small bowel. No findings to suggest acuteappendicitis. Peritoneal cavity: Similar moderate volume ascites. No free air. Bilateralflank rim-enhancing collections containing complex fluid, fat, and gas(left greater than right) with percutaneous drains in place. These fluidcollections similarly appear contiguous with other similar fluid collections insinuating throughout theretroperitoneum and peritoneal cavity. The right flank collection rvnisexn42 x 10 cm (TV by AP), previously 17 x 12 cm when measured similarly. Theleft flank collection measures 16 x 4 cm (TV by AP), previously 17 x 6 cm when measured similarly. Bladder: Under distended and incompletely evaluated. Pelvic organs: No significant abnormality. Vasculature: Atherosclerotic calcifications. Lymph nodes: No pathologic appearing lymph nodes by imaging criteria. Bones and soft tissues: Degenerative changes of the imaged spine. No acuteosseous abnormality. Diffuse anasarca IMPRESSION: Impression: Interval removal of percutaneous drain at the gallbladder fossa withsimilar appearing gas and fluid collection. Mild interval decrease in size of bilateral flank rim-enhancingcollections with percutaneous drains in place. These collections appearcontiguous with other similar fluid collections insinuating throughout theretroperitoneum and peritoneal cavity. Similar moderate volume ascites. Interval decreased moderate left pleural effusion and interval developmentof a small right pleural effusion with adjacent atelectasis. Diffuse anasarca. Electronically Signed: Estiven Harrington MD 02/07/2025 5:07 PM EDT Workstation ID: [id number] Jose De Jesus Shaw MD IMG CT ORDERABLES Final Re sult * Blood Culture - Blood, Arm, Left (02/07/2025 11:30 AM EDT) Blood Culture No growth at 5 days 02/12/2025 11:45 AM EDT [facility] Blood Structure of left upper limb / Unknown Venipuncture / Unknown 02/07/2025 11:30 AM EDT 02/07/2025 11:39 AM EDT Narrative [facility] - 02/12/2025 11:45 AM EDT Aerobic Bottle Only Less than seven (7) mL's of blood was collected. Insufficient quantity may yield false negative results. Jose De Jesus Shaw MD MICROBIOLOGY - GENERAL ORD ERABLES Final Result [facility]
[address] [place] [address], * (ABNORMAL) C-reactive Protein (02/07/2025 3:52 AM EDT) Only the most recent of4 resultswithin the time period is included. Pathologist [facility] C-Reactive Protein 16.90(H) 0.00 - 0.50 mg/dL 02/07/2025 5:23 AM EDT [facility] Blood Venipuncture / Unknown 02/07/2025 3:52 AM EDT 02/07/2025 4:47 AM EDT Jose De Jesus Shaw MD LAB BLOOD ORDERABLES Final Result Performing Organization Address [place]/[facility]/ZIP Co de Phone Number [facility]
[address] [place] [address], * Lipase (02/07/2025 3:52 AM EDT) Pathologist [facility] Lipase 57 13 - 60 U/L 02/07/2025 10:29 AM EDT [facility] Blood Venipuncture / Unknown 02/07/2025 3:52 AM EDT 02/07/2025 4:47 AM EDT us Jose De Jesus Shaw MD LAB BLOOD ORDERABLES Final Result Performing Organization Address [place]/[facility] de Phone Number [facility]
[address] [place] [address], * (ABNORMAL) CBC (No Diff) (02/06/2025 3:04 AM EDT) Only the most recent of2 resultswithin the time period is included. Pathologist [facility] WBC 13.59(H) 3.40 - 10.80 10*3/mm3 02/06/2025 4:27 AM EDT [facility] RBC 3.14(L) 4.14 - 5.80 10*6/mm3 02/06/2025 4:27 AM EDT [facility] Hemoglobin 8.9(L) 13.0 - 17.7 g/dL 02/06/2025 4:27 AM EDT [facility] Hematocrit 29.2(L) 37.5 - 51.0 % 02/06/2025 4:27 AM EDT [facility] MCV 93.0 79.0 - 97.0 fL 02/06/2025 4:27 AM EDT [facility] MCH 28.3 26.6 - 33.0 pg 02/06/2025 4:27 AM EDT [facility] MCHC 30.5(L) 31.5 - 35.7 g/dL 02/06/2025 4:27 AM EDT [facility] RDW 21.3(H) 12.3 - 15.4 % 02/06/2025 4:27 AM EDT [facility] RDW-SD 69.0(H) 37.0 - 54.0 fl 02/06/2025 4:27 AM EDT [facility] MPV 9.8 6.0 - 12.0 fL 02/06/2025 4:27 AM EDT [facility] Platelets 232 140 - 450 10*3/mm3 02/06/2025 4:27 AM EDT [facility] Blood Venipuncture / Unknown 02/06/2025 3:04 AM EDT 02/06/2025 4:16 AM EDT us Yefri Heller MD LAB BLOOD ORDERABLES Final Re sult [facility]
[address] [place] [address], * (ABNORMAL) Basic Metabolic Panel (02/05/2025 3:01 AM EDT) Only the most recent of3 resultswithin the time period is included. Glucose 117(H) 65 - 99 mg/dL 02/05/2025 4:21 AM EDT [facility] BUN 20.8(H) 6.0 - 20.0 mg/dL 02/05/2025 4:21 AM EDT [facility] Creatinine 0.76 0.76 - 1.27 mg/dL 02/05/2025 4:21 AM EDT [facility] Sodium 131(L) 136 - 145 mmol/L 02/05/2025 4:21 AM EDT [facility] Potassium 4.5 3.5 - 5.2 mmol/L 02/05/2025 4:21 AM EDT [facility] Chloride 101 98 - 107 mmol/L 02/05/2025 4:21 AM EDT [facility] CO2 21.3(L) 22.0 - 29.0 mmol/L 02/05/2025 4:21 AM EDT [facility] Calcium 7.2(L) 8.6 - 10.5 mg/dL 02/05/2025 4:21 AM EDT [facility] BUN/Creatinine Ratio 27.4(H) 7.0 - 25.0 02/05/2025 4:21 AM EDT [facility] Anion Gap 8.7 5.0 - 15.0 mmol/L 02/05/2025 4:21 AM EDT [facility] eGFR 120.2 >60.0 mL/min/1.7 3 02/05/2025 4:21 AM T [facility] Blood Venipuncture / Unknown 02/05/2025 3:01 AM EDT 02/05/2025 3:48 AM EDT Narrative [facility] - 02/05/2025 4:21 AM EDT GFR Categories in Chronic Kidney Disease (CKD) GFR Category GFR (mL/min/1.73) Interpretation G1 90 or greater Normal or high (1) G2 60-89 Mild decrease (1) G3a 45-59 Mild to moderate decrease G3b 30-44 Moderate to severe decrease G4 15-29 Severe decrease G5 14 or less Kidney failure (1)In the absence of evidence of kidney disease, neither GFR category G1 or G2 fulfill the criteria for CKD. eGFR calculation 2020 CKD-EPI creatinine equation, which does not include race as a factor us Omero Davis DO LAB BLOOD ORDERABLES Final Resul t [facility]
[address] [place] [address], * (ABNORMAL) Prealbumin (02/02/2025 4:17 PM EDT) Only the most recent of2 resultswithin the time period is included. Prealbumin 3.5(L) 20.0 - 40.0 mg/dL 02/02/2025 11:38 PM EDT [facility] Blood Venipuncture / Unknown 02/02/2025 4:17 PM EDT 02/02/2025 5:12 PM EDT [facility] BLOOD ORDERABLES Final Resul t Performing Organization Address City/[facility]/ZIP Co de Phone Number [facility]
[address] [place] [address], * (ABNORMAL) Phosphorus (02/02/2025 3:49 AM EDT) Only the most recent of4 resultswithin the time period is included. Phosphorus 4.6(H) 2.5 - 4.5 mg/dL 02/02/2025 5:16 AM EDT [facility] Blood Venipuncture / Unknown 02/02/2025 3:49 AM EDT 02/02/2025 4:49 AM EDT [facility] BLOOD ORDERABLES Final Resul t [facility]
[address] [place] [address], [place] [phone] * Scan Slide (02/01/2025 3:43 AM EDT) Anisocytosis Slight/1+ None Seen 02/01/2025 6:15 AM EDT [facility] Yasmin Cells Slight/1+ None Seen 02/01/2025 6:15 AM EDT [facility] WBC Morphology Normal Normal 02/01/2025 6:15 AM EDT [facility] Platelet Morphology Normal Normal 02/01/2025 6:15 AM EDT [facility] Blood Venipuncture / Unknown 02/01/2025 3:43 AM EDT 02/01/2025 5:15 AM EDT Omero Davis DO LAB BLOOD ORDERABLES Final Resul t [facility]
[address] [place] [address], * CT Abdomen With & Without Contrast (01/31/2025 2:58 AM EDT) Anatomical Region Laterality Modality Abdomen N/A Computed Tomogra phy 01/31/2025 5:08 AM EDT Impressions 01/31/2025 5:25 AM EDT Impression: 1.Interval placement of bilateral flank percutaneous drains with significant decrease in size of the bilateral flank collections. 2.Slight decrease in size of the gallbladder fossa collection. 3.Significant increase in the volume of simple ascites in the peritoneal cavity. 4.Increased large left pleural effusion. 5.Increased anasarca. Electronically Signed: Sunny Vann MD 01/31/2025 5:25 AM EDT Workstation ID: [id number] Narrative 01/31/2025 5:[address] ABDOMEN W WO CONTRAST Date of Exam: 01/31/2025 2:46 AM EDT Indication: pancreas protocol, assess previously seen intra abdominal fluid collections now s/p drain placements. Comparison: None available. Technique: Axial CT images were obtained of the abdomen before and after the uneventful intravenous administration of 85 mL Isovue-370. Reconstructed coronal and sagittal images were also obtained. Automated exposure control and iterative construction methods were used. Findings: Heart size is normal. Feeding tube terminates in the jejunum. There is increased large left pleural effusion. There is minor dependent bibasilar atelectasis. There is anasarca., Which appears increased. No acute osseous abnormality. No significant osseous degenerative change. Bilateral flank percutaneous drains have been placed. Gallbladder fossa percutaneous drain appears stable in position. The right flank collection measures a maximum of 16.8 x 9.2 cm in the axial plane, previously 17.1 x 11.5 cm. The left flank collection measures up to 17.1 x 5.5 cm, previously 19.4 x 13.7 cm. Both collections contain a mixture of fat and complex fluid and gas, left more so than right. There is associated rim enhancement. These collections appear contiguous with other large complex collections insinuating throughout the retroperitoneum and peritoneal cavity. Fluid collection in the gallbladder fossa has slightly decreased in size and contains less gas than before. There is persistent diffuse mesenteric edema and lymphadenopathy. There has been a significant increase in the volume of simple ascites in the peritoneal cavity, which now appears moderate in volume. The peritoneal fluid is not associated with rim enhancement. The liver, bile ducts, spleen and adrenal glands appear normal. The pancreas is displaced dorsally, but appears intact without obvious necrosis or ductal distention. There is no bowel distention. Kidneys and ureters appear normal. Vasculature is normal. Procedure Note Sunny Vann MD - 01/31/2025 CT ABDOMEN W WO CONTRAST Date of Exam: 01/31/2025 2:46 AM EDT Indication: pancreas protocol, assess previously seen intra abdominalfluid collections now s/p drain placements. Comparison: None available. Technique: Axial CT images were obtained of the abdomen before and afterthe uneventful intravenous administration of 85 mL Isovue-370.Reconstructed coronal and sagittal images were also obtained. Automatedexposure control and iterative construction methods were used. Findings: Heart size is normal. Feeding tube terminates in the jejunum. There isincreased large left pleural effusion. There is minor dependent bibasilaratelectasis. There is anasarca., Which appears increased. No acute osseousabnormality. No significant osseous degenerative change. Bilateral flank percutaneous drains have been placed. Gallbladder fossapercutaneous drain appears stable in position. The right flank collectionmeasures a maximum of 16.8 x 9.2 cm in the axial plane, previously 17.1 x11.5 cm. The left flank collection measures up to 17.1 x 5.5 cm, previously 19.4 x 13.7 cm. Both collectionscontain a mixture of fat and complex fluid and gas, left more so thanright. There is associated rim enhancement. These collections appearcontiguous with other large complex collections insinuating throughout the retroperitoneum and peritonealcavity. Fluid collection in the gallbladder fossa has slightly decreasedin size and contains less gas than before. There is persistent diffusemesenteric edema and lymphadenopathy. There has been a significant increase in the volume of simple ascites inthe peritoneal cavity, which now appears moderate in volume. Theperitoneal fluid is not associated with rim enhancement. The liver, bile ducts, spleen and adrenal glands appear normal. Thepancreas is displaced dorsally, but appears intact without obviousnecrosis or ductal distention. There is no bowel distention. Kidneys andureters appear normal. Vasculature is normal. IMPRESSION: Impression: 1.Interval placement of bilateral flank percutaneous drains withsignificant decrease in size of the bilateral flank collections. 2.Slight decrease in size of the gallbladder fossa collection. 3.Significant increase in the volume of simple ascites in the peritonealcavity. 4.Increased large left pleural effusion. 5.Increased anasarca. Electronically Signed: Sunny Vann MD 01/31/2025 5:25 AM EDT Workstation ID: [id number] Nola Porras MD IMG CT ORDERABLES Final Result * Sedimentation Rate (01/27/2025 3:41 AM EDT) Pathologist [facility] Sed Rate 10 0 - 15 mm/hr 01/27/2025 4:19 AM EDT [facility] Blood Venipuncture / Unknown 01/27/2025 3:41 AM EDT 01/27/2025 4:03 AM EDT Jose De Jesus Shaw MD LAB BLOOD ORDERABLES Final Result [facility]
[address] [place] [address], * (ABNORMAL) Nutrition Panel (01/24/2025 4:30 PM EDT) Pathologist [facility] Glucose 84 65 - 99 mg/dL 01/24/2025 6:18 PM T [facility] BUN 26.9(H) 6.0 - 20.0 mg/dL 01/24/2025 6:18 PM [facility] Creatinine 0.81 0.76 - 1.27 mg/dL 01/24/2025 6:18 PM [facility] Sodium 133(L) 136 - 145 mmol/L 01/24/2025 6:18 PM T [facility] Potassium 5.1 3.5 - 5.2 mmol/L 01/24/2025 6:18 PM [facility] Comment:Slight hemolysis det ected by analyzer. Result may be falsely elevated. Chloride 99 98 - 107 mmol/L 01/24/2025 6:18 PM [facility] CO2 22.0 22.0 - 29.0 mmol/L 01/24/2025 6:18 PM [facility] Calcium 7.7(L) 8.6 - 10.5 mg/dL 01/24/2025 6:18 PM [facility] Alkaline Phosphatase 136(H) 39 - 117 U/L 01/24/2025 6:18 PM [facility] ALT (SGPT) 24 1 - 41 U/L 01/24/2025 6:18 PM [facility] AST (SGOT) 35 1 - 40 U/L 01/24/2025 6:18 PM T [facility] Total Cholesterol 56 0 - 200 mg/dL 01/24/2025 6:18 PM [facility] Triglycerides 78 0 - 150 mg/dL 01/24/2025 6:18 PM [facility] Total Protein 5.2(L) 6.0 - 8.5 g/dL 01/24/2025 6:18 PM [facility] Albumin 2.0(L) 3.5 - 5.2 g/dL 01/24/2025 6:18 PM [facility] Phosphorus 5.4(H) 2.5 - 4.5 mg/dL 01/24/2025 6:18 PM EDT [facility] Total Bilirubin 0.5 0.0 - 1.2 mg/dL 01/24/2025 6:18 PM EDT [facility] Magnesium 2.0 1.6 - 2.6 mg/dL 01/24/2025 6:18 PM EDT [facility] Anion Gap 12.0 5.0 - 15.0 mmol/L 01/24/2025 6:18 PM EDT [facility] Globulin 3.2 gm/dL 01/24/2025 6:18 PM EDT [facility] A/G Ratio 0.6 g/dL 01/24/2025 6:18 PM EDT [facility] BUN/Creatinine Ratio 33.2(H) 7.0 - 25.0 01/24/2025 6:18 PM EDT [facility] eGFR 117.9 >60.0 mL/min/1. 73 01/24/2025 6:18 PM EDT [facility] Blood Venipuncture / Unknown 01/24/2025 4:30 PM EDT 01/24/2025 5:24 PM EDT [facility] - 01/24/2025 6:18 PM EDT GFR Categories in Chronic Kidney Disease (CKD) GFR Category GFR (mL/min/1.73) Interpretation G1 90 or greater Normal or high (1) G2 60-89 Mild decrease (1) G3a 45-59 Mild to moderate decrease G3b 30-44 Moderate to severe decrease G4 15-29 Severe decrease G5 14 or less Kidney failure (1)In the absence of evidence of kidney disease, neither GFR category G1 or G2 fulfill the criteria for CKD. eGFR calculation 2020 CKD-EPI creatinine equation, which does not include race as a factor us Cheri Munguia MD LAB BLOOD ORDERABLES Final Resul t [facility]
[address] [place] [address], * Fungus Culture - Aspirate, Retroperitoneum (01/24/2025 11:55 AM EDT) Fungus Culture No fungus isolated at 6 weeks 03/07/2025 12:45 PM EDT [facility] Aspirate Retroperitoneal compartment structure / Unknown Collection / Unknown 01/24/2025 11:55 AM EDT 01/24/2025 12:30 PM EDT Yefri Heller MD MICROBIOLOGY - GENERAL ORDERA BLES Final Result [facility]
[address] [place] [address], * Anaerobic Culture - Aspirate, Retroperitoneum (01/24/2025 11:55 AM EDT) Anaerobic Culture No anaerobes isolated at 5 days DREA 01/29/2025 6:52 AM EDT [facility] Aspirate Retroperitoneal compartment structure / Unknown Collection / Unknown 01/24/2025 11:55 AM EDT 01/24/2025 12:30 PM EDT Yefri Heller MD MICROBIOLOGY - GENERAL ORDERA BLES Final Result [facility]
[address] [place] [address], [place] [phone] * (ABNORMAL) Body fluid cell count - Aspirate, Retroperitoneum (01/24/2025 11:55 AM EDT) Color, Fluid Brown DISK DIFFUSION 01/24/2025 1:16 PM EDT [facility] Appearance, Fluid Turbid(A) Clear DISK DIFFUSION 01/24/2025 1:16 PM EDT [facility] WBC, Fluid 60,560 /mm3 01/24/2025 1:16 PM EDT [facility] RBC, Fluid 150,000 /mm3 01/24/2025 1:16 PM EDT [facility] Aspirate Retroperitoneal compartment structure / Unknown Collection / Unknown 01/24/2025 11:55 AM EDT 01/24/2025 12:13 PM EDT [facility] - 01/24/2025 1:16 PM EDT If the reference range(s) are not listed, then the reference range(s) have not been defined, so unavailable for the body fluid result. Body Fluid received in preservative other than EDTA. Interpret Cell Count results accordingly. Yefri Heller MD BODY FLUIDS AND STOOLS ORDERA BLES Final Result Performing Organization Address City/[facility]/ZIP Co de Phone Number [facility]
[address] [place] [address], * Amylase, Body Fluid - Aspirate, Retroperitoneum (01/24/2025 11:55 AM EDT) Amylase, Fluid 197 U/L 01/24/2025 7:02 PM EDT [facility] Aspirate Retroperitoneal compartment structure / Unknown Collection / Unknown 01/24/2025 11:55 AM EDT 01/24/2025 12:30 PM EDT [facility] - 01/24/2025 7:02 PM EDT No Reference Ranges Established. This test was developed, it performance characteristics determined and judged suitable for clinical purposes by [facility]. It has not been cleared or approved by the FDA. The laboratory is regulated under CLIA as qualified to perform high-complexity testing. us Yefri Heller MD BODY FLUIDS AND STOOLS ORDERA BLES Final Result [facility]
[address] [place] [address], * CT Guided Percutaneous Drain Retroperitoneal (01/24/2025 11:53 AM EDT) Anatomical Region Laterality Modality Abdomen Computed Tomogra phy 01/24/2025 3:49 PM EDT Impressions 01/24/2025 3:[address]-guided aspiration and drain placement of bilateral fluid collections. 01/24/2025 3:52 PM by Aftab Cook MD on Narrative 01/24/2025 3:52 PM EDT DATE OF EXAM: 01/24/2025 11:16 AM PROCEDURE: CT GUIDED PERCUTANEOUS DRAIN RETROPERITONEAL- INDICATIONS: Bilateral flank fluid collections in lower abdomen; R10.84-Generalized abdominal pain; D72.829-Elevated white blood cell count, unspecified; Z90.49-Acquired absence of other specified parts of digestive tract; R11.2-Nausea with vomiting, unspecified; E44.0-Moderate protein-calorie malnutrition; K91.89-Other postprocedural complications and disorders of digestive system; K85.90-Acute pancreatitis DLP: 1244 mGycm SEDATION: 100 mcg IV fentanyl, 1 mg IV Versed. SEDATION TIME: 21 minutes. I was present with the patient for the duration of moderate sedation and personally monitored the patient in conjunction with the nurse for the entirety of the procedure. TECHNIQUE: The risks, benefits, and alternatives were discussed in detail with the patient. The patient was brought down to the CT suite and positioned prone on the CT table. Preliminary CT scan of theabdomen pelvis was performed and a skin entry sites were selected and marked. The area was prepped and draped utilizing standard sterile technique. 1% lidocaine was administered to the soft tissues. A small skin incision was made with an [address] a 5 [place] Yueh was advanced into the left hemiabdomen fluid collection. The inner stylet was removed and turbid brown fluid was immediately aspirated. An 035 Amplatz wire was advanced and coiled within the collection. The tract was serially dilated and a 14 [place] all-purpose drainage catheter was advanced with locking loop formed within the collection. The catheter was sutured to the skin and connected to bag drainage. Our attention was then turned to the right hemiabdomen fluid collection where the skin was anesthetized with 1% lidocaine and a small skin incision was made with an [address] guidance a 5 [place] Yueh was advanced into the right hemiabdomen fluid collection and fluid was immediately aspirated. The inner stylette was removed and a 0.035 Amplatz wire was advanced and coiled within the collection. The track was dilated and a 14 Burundian all-purpose drainage catheter was advanced with locking loop formed within the collection. The catheter was sutured to the skin and connected to bag drainage. A sterile dressings were then applied The patient tolerated the procedure well and there were no immediate complications. Procedure Note Aftab Cook MD - 01/24/2025 DATE OF EXAM: 01/24/2025 11:16 AM PROCEDURE: CT GUIDED PERCUTANEOUS DRAIN RETROPERITONEAL- INDICATIONS: Bilateral flank fluid collections in lower abdomen; R10.84-Generalized abdominal pain; D72.829-Elevated white blood cell count, unspecified; Z90.49-Acquired absence of other specified parts of digestive tract; R11.2-Nausea with vomiting, unspecified; E44.0-Moderate protein-calorie malnutrition; K91.89-Other postprocedural complications and disorders of digestive system; K85.90-Acute pancreatitis DLP: 1244 mGycm SEDATION: 100 mcg IV fentanyl, 1 mg IV Versed. SEDATION TIME: 21 minutes. I was present with the patient for the duration of moderate sedation and personally monitored the patient in conjunction with the nurse for the entirety of the procedure. TECHNIQUE: The risks, benefits, and alternatives were discussed in detail with the patient. The patient was brought down to the CT suite and positioned prone on the CT table. Preliminary CT scan of theabdomen pelvis was performed and a skin entry sites were selected and marked. The area was prepped and draped utilizing standard sterile technique. 1% lidocaine was administered to the soft tissues. A small skin incision was made with an [address] a 5 [place] Yueh was advanced into the left hemiabdomen fluid collection. The inner stylet was removed and turbid brown fluid was immediately aspirated. An 035 Amplatz wire was advanced and coiled within the collection. The tract was serially dilated and a 14 [place]undian all-purpose drainage catheter was advanced with locking loop formed within the collection. The catheter was sutured to the skin and connected to bag drainage. Our attention was then turned to the right hemiabdomen fluid collection where the skin was anesthetized with 1% lidocaine and a small skin incision was made with an [address] guidance a 5 [place] Yueh was advanced into the right hemiabdomen fluid collection and fluid was immediately aspirated. The inner stylette was removed and a 0.035 Amplatz wire was advanced and coiled within the collection. The track was dilated and a 14 Burundian all-purpose drainage catheter was advanced with locking loop formed within the collection. The catheter was sutured to the skin and connected to bag drainage. A sterile dressings were then applied The patient tolerated the procedure well and there were no immediate complications. IMPRESSION: Successful CT-guided aspiration and drain placement of bilateral fluid collections. 01/24/2025 3:52 PM by Aftab Cook MD on Yefri Heller MD IMG CT ORDERABLES Final Resul t * (ABNORMAL) Protime-INR (01/24/2025 9:24 AM EDT) Pathologist [facility] Protime 18.1(H) 12.2 - 15.3 Seconds 01/24/2025 9:50 AM EDT [facility] INR 1.41(H) 0.89 - 1.12 01/24/2025 9:50 AM EDT [facility] Blood Venipuncture / Unknown 01/24/2025 9:24 AM EDT 01/24/2025 9:31 AM EDT Aftab Cook MD LAB BLOOD ORDERABLES Final Res ult [facility]
[address] [place] [address], * Hepatitis Panel, Acute (12/19/2024 4:53 PM EDT) Pathologist [facility] Hepatitis B Surface Ag Non-Reacti ve Non-Reacti ve 12/21/2024 1:08 PM EDT [facility] Hep A IgM Non-Reacti ve Non-Reacti ve 12/21/2024 1:08 PM EDT [facility] Hep B C IgM Non-Reacti ve Non-Reacti ve 12/21/2024 1:08 PM EDT [facility] Hepatitis C Ab Non-Reacti ve Non-Reacti ve 12/21/2024 1:08 PM EDT [facility] Blood Venipuncture / Unknown 12/19/2024 4:53 PM EDT 12/19/2024 5:02 PM EDT Narrative [facility] - 12/21/2024 1:08 PM EDT Results may be falsely decreased if patient taking Biotin. us Leoncio Pastrana MD LAB BLOOD ORDERABLES Final Res ult [facility]
[address] [place] [address], from Last 3 Months or Most Recently Relevant to Health Maintenance Insurance [facility] [employer] EXCHANGE Advance Directives * CPR (Attempt to Resuscitate) (Latest Code Status on File) Date Activated Date Inactivated Comments 12/27/2024 9:34 PM 02/10/2025 6:21 AM Question Answer Comments Code Status (Patient has no pulse and is not breathing): CPR (Attempt to Resuscitate) Medical Interventions (Patie nt has pulse or is breathing): Full Support * CPR (Attempt to Resuscitate) Date Activated Date Inactivated Comments 12/23/2024 5:24 PM 12/25/2024 1:35 PM Question Answer Comments Code Status (Patient has no pulse and is not breathing): CPR (Attempt to Resuscitate) Medical Interventions (Patie nt has pulse or is breathing): Full Support Level Of Support Discussed With: Patient * CPR (Attempt to Resuscitate) Date Activated Date Inactivated Comments 12/21/2024 4:48 AM 12/23/2024 5:24 PM Question Answer Comments Code Status (Patient has no pulse and is not breathing): CPR (Attempt to Resuscitate) Medical Interventions (Patie nt has pulse or is breathing): Full Support Level Of Support Discussed With: Patient Care Teams Agricultural Equipment Test Engineer Relationship Specialty Start Date End Date Robbie Ca MD [address] [place] [address] [facility] [address] PCP - General Family Medicine 12/19/24
--- OUTSIDE RECORDS SUMMARY | 2025-04-26 12:30 | XMS_ITS | Encounter Summary ---
Author Organization [facility] Address [address] [place] [address] Care Team Providers Care Order Entry Technician Name Role Phone Robbie Ca MD Primary Care Provider Garrett Lombardi MD Unavailable [phone] Encounter Details Date Type Department Care Team (Late Contact Info) Description 03/07/2025 Orders Only [facility] Gastroenterology [address] [facility] [address] [place] [address] Provider, MD Thor [address] [place], [place] [id number] Social History Tobacco Use Types Packs/Day Years Used Date Smoking Tobacco: Never Assessed Sex and Gender Information Value Date Recorded Sex Assigned at Not on file Legal Sex Male 5:37 AM EDT Gender Identity Not on file Sexual Orientation Not on file documented as of this encounter Plan of Treatment Upcoming Encounters Date Type Department Care Team (Late Contact Info) Description 04/28/2025 7:30 AM EST [facility] [address] [facility] [address] [place] [address] Garrett Gonzalez MD [address] [facility] [address] [place] [id number] 05/02/2025 2:15 PM EST [facility] [address] [facility] [facility] [address] [place] [address] Dixon Ca MD [address] [place] [address], [address] [place] [address] documented as of this encounter Procedures Procedure Name Priority Date/Time Associated Diagnosis Comments PROCEDURE SCANNED RESULT Routine 02/10/2025 9:59 AM EDT documented in this encounter Results * Procedure Scanned Result (02/10/2025 9:59 AM EDT) us Historical Provider IN CLINIC/BEDSIDE ORDERAB LES Edited Result - Final documented in this encounter Visit Diagnoses Not on filedocumented in this encounter Care Teams Order Entry Technician Relationship Specialty Start Date End Date Robbie Ca MD PCP - General Family Medicine 01/21/25 Garrett Gonzalez MD [address] [facility] [address] [place] [address] Referring Physician Gastroenterology 03/07/25 documented as of this encounter
--- OUTSIDE RECORDS SUMMARY | 2025-04-26 12:30 | XMS_ITS | Encounter Summary ---
Author Organization [facility] Address [address] [place] [address] Care Team Providers Care Box Strapper Name Role Phone Robbie Ca MD Primary Care Provider Adwoa Garrett Novak MD Unavailable [phone] Dixon Ca MD Unavailable [phone] Reason for Visit * Reason Onset Date Comments Procedure 03/21/2025 Encounter Details Date Type Department Care Team (Late st Contact Info) Description 03/21/2025 Telephone [facility] [place] [facility] [address] [facility] [address] [place], [place] [id number] Garrett Gonzalez MD [address] [facility] [address] [place] [address] Procedure Social History Tobacco Use Types Packs/Day Years Used Date Smoking Tobacco: Never Assessed Sex and Gender Information Value Date Recorded Sex Assigned at Not on file Legal Sex Male 5:37 AM EDT Gender Identity Not on file Sexual Orientation Not on file documented as of this encounter Miscellaneous Notes * Telephone Encounter - Karissa Hoang - 04/18/2025 1:56 PM EDT [facility] is calling back to have patients stents removed Rasheeda from [place] [phone] * Telephone Encounter - Kathy Crain LPN - 03/23/2025 9:02 AM EDT Orders placed yesterday by provider Dalton Navarro documented in this encounter Plan of Treatment Upcoming Encounters Date Type Department Care Team (Late st Contact Info) Description 04/28/2025 7:30 AM EST External Surgery [facility] [place] [facility] [address] [facility] [address] [place] [address] Garrett Gonzalez MD [address] [facility] [address] [place] [address] 05/02/2025 2:15 PM EST Office Visit [facility] [address] [place] [id number] Dixon Ca MD [address] [place] [phone] documented as of this encounter Visit Diagnoses Not on filedocumented in this encounter Care Teams Box Strapper Relationship Specialty Start Date End Date Robbie Ca MD PCP - General Family Medicine 01/21/25 Garrett Gonzalez MD [address] [phone] Referring Physician Gastroenterology 03/07/25 Dixon Ca MD [address] [place] [address] [address] [place] [phone] Surgeon General Surgery 04/18/25 documented as of this encounter
--- OUTSIDE RECORDS SUMMARY | 2025-04-26 12:30 | XMS_ITS | Encounter Summary ---
Author Organization [facility] Address [address] [facility] [address] [place] [address] Care Team Providers Care Avionics Engineer Name Role Phone Robbie Ca MD Primary Care Provider Adwoa Garrett Novak MD Unavailable Dixon aC MD Unavailable [phone] Reason for Referral * Consultation (Routine) - Closed Specialty Diagnoses / Procedures Referred By Contjerry t Referred To Contact Diagnoses Pancreatitis Procedures Enteroscopy Dalton Navarro PA [address] [place] [address] Phone: tel: fax: [address] [phone] Referral ID Status Reason Start Date Expiration Date V isits Requested Visits Authorized [id number] Closed [facility] 04/18/2025 05/18/2026 1 1 Encounter Details Date Type Department Care Team (Latest Contact Info) Description 04/18/2025 Orders Only [facility] [address] [place], [place] [id number] Dalton Navarro PA [address] [facility] [address] [place] [address] Pancreatitis (Primary Dx) Social History Tobacco Use Types Packs/Day Years [...] AM EST External Surgery [facility] [place] [facility] [address] [phone] Garrett Gonzalez MD [address] [facility] [address] [place] [address] 05/02/2025 2:15 PM EST Office Visit [facility] [address] [place] [phone] Dixon Ca MD [address] [place] [address], [address] [phone] Scheduled Orders Name Type Priority Associated Diagnoses Orde r Schedule Enteroscopy Endoscopy Routine Pancreatitis Expected: 04/18/2025 (Approximate), Expires: 04/18/2026 documented as of this encounter Visit Diagnoses Diagnosis Pancreatitis- Primary documented in this encounter Care Teams Avionics Engineer Relationship Specialty Start Date End Date Robbie Ca MD PCP - General Family Medicine 01/21/25 Garrett Gonzalez MD [address] [id number] Referring Physician Gastroenterology 03/07/25 Dixon Ca MD [address] [place] [phone] Surgeon General Surgery 04/18/25 documented as of this encounter
--- OUTSIDE RECORDS SUMMARY | 2025-04-26 12:30 | XMS_ITS | Encounter Summary ---
Author Organization [facility] Address [address] [facility] [address] [place] [address] Care Team Providers Care School Superintendent Name Role Phone Robbie Ca MD Primary Care Provider Adwoa Garrett Novak MD Unavailable [phone] Reason for Referral * Consultation (Routine) - Closed Specialty Diagnoses / Procedures Referred By Contac t Referred To Contact Diagnoses Acute necrotizing pancreatitis Procedures ERCP Dalton Navarro PA [address] [facility] [address] [place] [address] Phone: tel: fax: [address] [phone] Referral ID Status Reason Start Date Expiration Date V isits Requested Visits Authorized [id number] formerly [facility] 03/22/2025 04/21/2026 1 1 * Consultation (Routine) - Closed Specialty Diagnoses / Procedures Referred By Contac t Referred To Contact Diagnoses Acute necrotizing pancreatitis Procedures Endoscopic ultrasonography (Upper) Dalton Navarro PA [address] [facility] [address] [place] [address] Phone: tel: fax: [address] [phone] Referral ID Status Reason Start Date Expiration Date V isits Requested Visits Authorized [id number] Closed [facility] 03/22/2025 04/21/2026 1 1 Encounter Details Date Type Department Care Team (Latest Contact Info) Description 03/22/2025 [facility] [address] [facility] [address] [place] [address] Dalton Navarro PA [address] [facility] [address] [place] [address] Acute necrotizing pancreatitis (Primary Dx) Social History Tobacco Use Types [...] Description 04/28/2025 7:30 AM EST External [facility] [place] [facility] [address] [place] [address] Garrett Gonzalez MD [address] [facility] [address] [place] [address] 05/02/2025 2:15 PM EST [facility] [address] [place] [address] Dixon Ca MD [address] [place] [address], [address] [phone] Scheduled Orders Name Type Priority Associated Diagnoses Orde r Schedule Endoscopic ultrasonography (Upper) Endoscopy Routine Acute necrotizing pancreatitis Expected: 03/22/2025 (Approximate), Expires: 03/22/2026 ERCP Endoscopy Routine Acute necrotizing pancreatitis Expected: 03/22/2025 (Approximate), Expires: 03/22/2026 documented as of this encounter Visit Diagnoses Diagnosis Acute necrotizing pancreatitis- Primary documented in this encounter Care Teams School Superintendent Relationship Specialty Start Date End Date Robbie Ca MD PCP - General Family Medicine 01/21/25 Garrett Gonzalez MD [address] [address] Referring Physician Gastroenterology 03/07/25 documented as of this encounter
--- OUTSIDE RECORDS SUMMARY | 2025-04-26 12:30 | XMS_ITS | Clinical Summary ---
Author Organization [facility] Address [address] [place] [address] Care Team Providers Care Realty Specialist Name Role Phone Robbie Ca MD Primary Care Provider Garrett Lombardi MD Unavailable [phone] Dixon Ca MD Unavailable [phone] Encounters Date Type Department Care Team Description 04/18/2025 Orders Only [facility] [address] [place] [address] Dalton Navarro PA Pancreatitis (Primary Dx) 03/22/2025 Orders Only [facility] [address] [place] [address] Dalton Navarro PA Acute necrotizing pancreatitis (Primary Dx) 03/21/2025 Telephone [facility] [address] [place], [place] [id number] Garrett Gonzalez MD Procedure 03/07/2025 Orders Only [facility] [address] [place], [place] [id number] ProviderhTor MD from Last 3 Months Social History Tobacco Use Types Packs/Day Years Used Date Smoking Tobacco: Never Assessed Sex and Gender Information Value Date Recorded Sex Assigned at Not on file Legal Sex Male 5:37 AM EDT Gender Identity Not on file Sexual Orientation Not on file Plan of Treatment Upcoming Encounters Date Type Department Care Team ([facility] st Contact Info) Description 04/28/2025 7:30 AM EST External Surgery [facility] [address] [facility] [address] [place], [place] [phone] Garrett Gonzalez MD [address] [place] [address] 05/02/2025 2:15 PM EST Office Visit [facility] [address] [facility] [address] [place], [place] [phone] Dixon Ca MD [address] [facility] [place] [address] Health Maintenance Due Date Last Done Comments HIV Screening 1990 Hepatitis C Screening 1989 Lipid Panel 1989 MMR Vaccines (1 of 1 - Stand juancho series) 1990 BMI Intervention 1995 Varicella Vaccines (1 of 2 - 13+ 2-dose series) 2002 Hepatitis B Screening 2007 DTaP/Tdap/Td Vaccines (1 - Tdap) 2008 Hepatitis B Vaccines (1 of 3 - 19+ 3-dose series) 2008 Pneumococcal Vaccine (1 of 2 - PCV) 2008 HPV Vaccines (1 - 3-dose SCD M series) 2016 Depression Risk Screening 06/23/2024 SDOH Screening 06/23/2024 COVID-19 Vaccine (1 - 2024-2 6 season) 2025 Influenza Vaccine (#1) 2025 Zoster Vaccines (1 of 2) 2039 HIB Vaccines Aged Out No longer eligi ble based on patient's age to complete this topic Hepatitis A Vaccines Aged Out No long er eligible based on patient's age to complete this topic IPV Vaccines Aged Out No longer eligi ble based on patient's age to complete this topic Meningococcal B Vaccine Aged Out No l onger eligible based on patient's age to complete this topic Meningococcal Vaccine Aged Out No theron kaye eligible based on patient's age to complete this topic Rotavirus Vaccines Aged Out No longer eligible based on patient's age to complete this topic Procedures Procedure Name Priority Date/Time Associated Diagnosis Comments PHOSPHORUS Early AM 04/20/2025 3:47 AM EDT MAGNESIUM Early AM 04/20/2025 3:47 AM EDT BMP BASIC METABOLIC PANEL Early AM 04/20/2025 3:47 AM EDT AUTODIFF Early AM 04/20/2025 3:47 AM EDT CBC AND DIFFERENTIAL Early AM 04/20/2025 3:47 AM EDT PHOSPHORUS Early AM 04/19/2025 4:25 AM EDT MAGNESIUM Early AM 04/19/2025 4:25 AM EDT BMP BASIC METABOLIC PANEL Early AM 04/19/2025 4:25 AM EDT AUTODIFF Early AM 04/19/2025 4:25 AM EDT CBC AND DIFFERENTIAL Early AM 04/19/2025 4:25 AM EDT PHOSPHORUS Early AM 04/18/2025 3:14 AM EDT MAGNESIUM Early AM 04/18/2025 3:14 AM EDT BMP BASIC METABOLIC PANEL Early AM 04/18/2025 3:14 AM EDT AUTODIFF Early AM 04/18/2025 3:14 AM EDT CBC AND DIFFERENTIAL Early AM 04/18/2025 3:14 AM EDT PHOSPHORUS Early AM 04/17/2025 4:56 AM EDT MAGNESIUM Early AM 04/17/2025 4:56 AM EDT BMP BASIC METABOLIC PANEL Early AM 04/17/2025 4:56 AM EDT AUTODIFF Early AM 04/17/2025 4:56 AM EDT CBC AND DIFFERENTIAL Early AM 04/17/2025 4:56 AM EDT PHOSPHORUS Early AM 04/16/2025 3:17 AM EDT MAGNESIUM Early AM 04/16/2025 3:17 AM EDT BMP BASIC METABOLIC PANEL Early AM 04/16/2025 3:17 AM EDT AUTODIFF Early AM 04/16/2025 3:17 AM EDT CBC AND DIFFERENTIAL Early AM 04/16/2025 3:17 AM EDT PHOSPHORUS Early AM 04/15/2025 3:19 AM EDT MAGNESIUM Early AM 04/15/2025 3:19 AM EDT BMP BASIC METABOLIC PANEL Early AM 04/15/2025 3:19 AM EDT AUTODIFF Early AM 04/15/2025 3:19 AM EDT CBC AND DIFFERENTIAL Early AM 04/15/2025 3:19 AM EDT PHOSPHORUS Early AM 04/14/2025 3:40 AM EDT MAGNESIUM Early AM 04/14/2025 3:40 AM EDT BMP BASIC METABOLIC PANEL Early AM 04/14/2025 3:40 AM EDT AUTODIFF Early AM 04/14/2025 3:40 AM EDT CBC AND DIFFERENTIAL Early AM 04/14/2025 3:40 AM EDT PHOSPHORUS Early AM 04/13/2025 5:57 AM EDT MAGNESIUM Early AM 04/13/2025 5:57 AM EDT BMP BASIC METABOLIC PANEL Early AM 04/13/2025 5:57 AM EDT AUTODIFF Early AM 04/13/2025 5:57 AM EDT CBC AND DIFFERENTIAL Early AM 04/13/2025 5:57 AM EDT CULTURE BODY FLUID AND STAIN STAT 04/12/2025 3:[address] DRAINAGE PERITONEAL 2:49 PM EDT PT/INR PROTHROMBIN TIME PTT STAT 04/12/2025 1:03 PM EDT PHOSPHORUS Early AM 04/12/2025 3:36 AM EDT MAGNESIUM Early AM 04/12/2025 3:36 AM EDT BMP BASIC METABOLIC PANEL Early AM 04/12/2025 3:36 AM EDT AUTODIFF Early AM 04/12/2025 3:36 AM EDT CBC AND DIFFERENTIAL Early AM 04/12/2025 3:36 AM EDT CMP COMPREHENSIVE METABOLIC PANEL STAT 04/11/2025 6:[address] ABDOMEN PELVIS WO CONTRAST 04/11/2025 6:37 PM EDT PHOSPHORUS Early AM 04/11/2025 4:51 AM EDT MAGNESIUM Early AM 04/11/2025 4:51 AM EDT BMP BASIC METABOLIC PANEL Early AM 04/11/2025 4:51 AM EDT AUTODIFF Early AM 04/11/2025 4:51 AM EDT CBC AND DIFFERENTIAL Early AM 04/11/2025 4:51 AM EDT PHOSPHORUS Early AM 04/10/2025 3:33 AM EDT MAGNESIUM Early AM 04/10/2025 3:33 AM EDT BMP BASIC METABOLIC PANEL Early AM 04/10/2025 3:33 AM EDT AUTODIFF Early AM 04/10/2025 3:33 AM EDT CBC AND DIFFERENTIAL Early AM 04/10/2025 3:33 AM EDT PHOSPHORUS Early AM 04/09/2025 4:25 AM EDT MAGNESIUM Early AM 04/09/2025 4:25 AM EDT BMP BASIC METABOLIC PANEL Early AM 04/09/2025 4:25 AM EDT AUTODIFF Early AM 04/09/2025 4:25 AM EDT CBC AND DIFFERENTIAL Early AM 04/09/2025 4:25 AM EDT PHOSPHORUS Early AM 04/08/2025 4:30 AM EDT MAGNESIUM Early AM 04/08/2025 4:30 AM EDT BMP BASIC METABOLIC PANEL Early AM 04/08/2025 4:30 AM EDT AUTODIFF Early AM 04/08/2025 4:30 AM EDT CBC AND DIFFERENTIAL Early AM 04/08/2025 4:30 AM EDT AUTODIFF Early AM 04/07/2025 5:05 AM EDT CBC AND DIFFERENTIAL Early AM 04/07/2025 5:05 AM EDT PHOSPHORUS Early AM 04/07/2025 5:05 AM EDT MAGNESIUM Early AM 04/07/2025 5:05 AM EDT BMP BASIC METABOLIC PANEL Early AM 04/07/2025 5:05 AM EDT PHOSPHORUS Early AM 04/06/2025 5:05 AM EDT MAGNESIUM Early AM 04/06/2025 5:05 AM EDT BMP BASIC METABOLIC PANEL Early AM 04/06/2025 5:05 AM EDT AUTODIFF Early AM 04/06/2025 5:05 AM EDT CBC AND DIFFERENTIAL Early AM 04/06/2025 5:05 AM EDT PHOSPHORUS Early AM 04/05/2025 4:25 AM EDT MAGNESIUM Early AM 04/05/2025 4:25 AM EDT BMP BASIC METABOLIC PANEL Early AM 04/05/2025 4:25 AM EDT AUTODIFF Early AM 04/05/2025 4:25 AM EDT CBC AND DIFFERENTIAL Early AM 04/05/2025 4:25 AM EDT PHOSPHORUS Early AM 04/04/2025 3:27 AM EDT MAGNESIUM Early AM 04/04/2025 3:27 AM EDT BMP BASIC METABOLIC PANEL Early AM 04/04/2025 3:27 AM EDT AUTODIFF Early AM 04/04/2025 3:27 AM EDT CBC AND DIFFERENTIAL Early AM 04/04/2025 3:27 AM EDT PHOSPHORUS Early AM 04/03/2025 3:13 AM EDT MAGNESIUM Early AM 04/03/2025 3:13 AM EDT BMP BASIC METABOLIC PANEL Early AM 04/03/2025 3:13 AM EDT AUTODIFF Early AM 04/03/2025 3:13 AM EDT CBC AND DIFFERENTIAL Early AM 04/03/2025 3:13 AM EDT XA ABSCESS DRAIN PERITONEAL 04/02/2025 12:20 PM EDT ANTIBODY SCREEN Routine 04/02/2025 10:14 AM EDT ABO/RH Routine 04/02/2025 10:14 AM EDT PHOSPHORUS Early AM 04/02/2025 3:35 AM EDT MAGNESIUM Early AM 04/02/2025 3:35 AM EDT BMP BASIC METABOLIC PANEL Early AM 04/02/2025 3:35 AM EDT AUTODIFF Early AM 04/02/2025 3:35 AM EDT CBC AND DIFFERENTIAL Early AM 04/02/2025 3:35 AM EDT PHOSPHORUS Early AM 04/01/2025 3:59 AM EDT MAGNESIUM Early AM 04/01/2025 3:59 AM EDT BMP BASIC METABOLIC PANEL Early AM 04/01/2025 3:59 AM EDT AUTODIFF Early AM 04/01/2025 3:59 AM EDT CBC AND DIFFERENTIAL Early AM 04/01/2025 3:59 AM EDT PHOSPHORUS Early AM 03/31/2025 3:35 AM EDT MAGNESIUM Early AM 03/31/2025 3:35 AM EDT BMP BASIC METABOLIC PANEL Early AM 03/31/2025 3:35 AM EDT AUTODIFF Early AM 03/31/2025 3:35 AM EDT CBC AND DIFFERENTIAL Early AM 03/31/2025 3:35 AM EDT PHOSPHORUS Early AM 03/30/2025 2:57 AM EDT MAGNESIUM Early AM 03/30/2025 2:57 AM EDT BMP BASIC METABOLIC PANEL Early AM 03/30/2025 2:57 AM EDT AUTODIFF Early AM 03/30/2025 2:57 AM EDT CBC AND DIFFERENTIAL Early AM 03/30/2025 2:[address] ABDOMEN PELVIS W CONTRAST 03/29/2025 9:18 AM EDT PHOSPHORUS Early AM 03/29/2025 3:53 AM EDT MAGNESIUM Early AM 03/29/2025 3:53 AM EDT HEPATIC FUNCTION PANEL Early AM 3:53 AM EDT BMP BASIC METABOLIC PANEL Early AM 03/29/2025 3:53 AM EDT AUTODIFF Early AM 03/29/2025 3:53 AM EDT CBC AND DIFFERENTIAL Early AM 03/29/2025 3:53 AM EDT PHOSPHORUS Early AM 03/26/2025 2:56 AM EDT MAGNESIUM Early AM 03/26/2025 2:56 AM EDT BMP BASIC METABOLIC PANEL Early AM 03/26/2025 2:56 AM EDT AUTODIFF Early AM 03/26/2025 2:56 AM EDT CBC AND DIFFERENTIAL Early AM 03/26/2025 2:56 AM EDT PHOSPHORUS Early AM 03/25/2025 4:35 AM EDT MAGNESIUM Early AM 03/25/2025 4:35 AM EDT BMP BASIC METABOLIC PANEL Early AM 03/25/2025 4:35 AM EDT AUTODIFF Early AM 03/25/2025 4:35 AM EDT CBC AND DIFFERENTIAL Early AM 03/25/2025 4:35 AM EDT PHOSPHORUS Early AM 03/24/2025 3:37 AM EDT MAGNESIUM Early AM 03/24/2025 3:37 AM EDT BMP BASIC METABOLIC PANEL Early AM 03/24/2025 3:37 AM EDT AUTODIFF Early AM 03/24/2025 3:37 AM EDT CBC AND DIFFERENTIAL Early AM 03/24/2025 3:37 AM EDT PHOSPHORUS Early AM 03/23/2025 3:43 AM EDT MAGNESIUM Early AM 03/23/2025 3:43 AM EDT BMP BASIC METABOLIC PANEL Early AM 03/23/2025 3:43 AM EDT AUTODIFF Early AM 03/23/2025 3:43 AM EDT CBC AND DIFFERENTIAL Early AM 03/23/2025 3:43 AM EDT MAGNESIUM STAT 03/22/2025 12:58 PM EDT BMP BASIC METABOLIC PANEL STAT 03/22/2025 12:58 PM EDT AUTODIFF STAT 03/22/2025 12:58 PM EDT CBC AND DIFFERENTIAL STAT 03/22/2025 12:58 PM EDT PHOSPHORUS Early AM 03/22/2025 11:19 AM EDT MAGNESIUM Early AM 03/22/2025 11:19 AM EDT BMP BASIC METABOLIC PANEL Early AM 03/22/2025 11:19 AM EDT AUTODIFF Early AM 03/22/2025 11:19 AM EDT CBC AND DIFFERENTIAL Early AM 03/22/2025 11:19 AM EDT VANCOMYCIN, TROUGH Timed 03/20/2025 11 :29 AM EDT BMP BASIC METABOLIC PANEL STAT 03/20/2025 11:29 AM EDT AUTODIFF STAT 03/20/2025 11:29 AM EDT CBC AND DIFFERENTIAL STAT 03/20/2025 11:29 AM EDT PHOSPHORUS Early AM 03/20/2025 3:33 AM EDT MAGNESIUM Early AM 03/20/2025 3:33 AM EDT CULTURE BLOOD Timed 03/19/2025 3:12 PM EDT XR CHEST 1 VW PORTABLE 4:07 AM EDT CULTURE BLOOD STAT 03/19/2025 3:48 AM EDT CULTURE BLOOD STAT 03/19/2025 2:12 AM EDT PT/INR PROTHROMBIN TIME PTT STAT 03/19/2025 2:12 AM EDT CMP COMPREHENSIVE METABOLIC PANEL STAT 03/19/2025 2:12 AM EDT LACTIC ACID, PLASMA STAT 03/19/2025 2 :12 AM EDT AUTODIFF STAT 03/19/2025 2:12 AM EDT CBC AND DIFFERENTIAL STAT 03/19/2025 2:12 AM EDT ZAIDA AURIS PCR Routine 03/18/2025 6:3 5 PM EDT CULTURE CARBAPENEM RESISTANT SCREEN Routine 03/18/2025 6:06 PM EDT CARDIOLOGY SCANNED RESULT 03/07/2025 TRANSTHORACIC ECHO (TTE) COMPLETE W CONTRAST 03/06/2025 11:45 AM EDT SURGICAL PATHOLOGY REPORT Routine 03/01/2025 3:46 PM EDT ADDENDUM REPORT Routine 02/23/2025 5:09 PM EDT NON-EDUCATION ADMINISTRATIVE ASSISTANT CYTOLOGY REPORT Routine 02/23/2025 5:09 PM EDT NON-EDUCATION ADMINISTRATIVE ASSISTANT CYTOLOGY REPORT Routine 02/22/2025 12:15 PM EDT NON-EDUCATION ADMINISTRATIVE ASSISTANT CYTOLOGY REPORT Routine 02/16/2025 10:21 AM EDT PROCEDURE SCANNED RESULT Routine 02/10/2025 9:59 AM EDT from Last 3 Months Results * (ABNORMAL) AUTODIFF (04/20/2025 3:47 AM EDT) Only the most recent of31 resultswithin the time period is included. NEUT % 70.1 34.0 - 75.0 % 04/20/2025 4:03 AM EDT [facility] Heme Coag UA SS LYMPH % 11.6(L) 17.0 - 53.0 % 04/20/2025 4:03 AM EDT [facility] Heme Coag UA SS MONO % 10.1 2.0 - 12.0 % 04/20/2025 4:03 AM EDT [facility] Heme Coag UA SS EOS % 7.7(H) 0.0 - 7.0 % 04/20/2025 4:03 AM EDT [facility] Heme Coag UA SS BASO % 0.5 0.0 - 3.0 % 04/20/2025 4:03 AM EDT [facility] Heme Coag UA SS NEUT # 7.7(H) 1.5 - 7.1 x10(3)/ul 04/20/2025 4:03 AM EDT [facility] Heme Coag UA SS LYMPH # 1.3 1.0 - 3.5 x10(3)/ul 04/20/2025 4:03 AM EDT [facility] Heme Coag UA SS MONO # 1.1(H) 0.0 - 1.0 x10(3)/ul 04/20/2025 4:03 AM EDT [facility] Heme Coag UA SS EOS # 0.8(H) 0.0 - 0.7 x10(3)/ul 04/20/2025 4:03 AM EDT [facility] Heme Coag UA SS BASO # 0.1 0.0 - 0.3 x10(3)/ul 04/20/2025 4:03 AM EDT [facility] Heme Coag UA SS Blood 04/20/2025 3:47 AM EDT 04/20/2025 3:56 AM EDT [facility] - 04/20/2025 4:03 AM EDT Ordered by Discern Expert. Performed by [facility], [address] [facility], [place] [address] us Non-Ulp Provider LAB BLOOD ORDERABLES Final Resu lt [facility] [address] [place] [address], [facility] Heme Coag UA SS Pathology Department [address] [place] [address] * (ABNORMAL) CBC With Differential (04/20/2025 3:47 AM EDT) Only the most recent of31 resultswithin the time period is included. WBC 11.0(H) 4.0 - 10.8 x10(3)/ul 04/20/2025 4:03 AM EDT [facility] Heme Coag UA SS RBC 3.84(L) 4.37 - 5.74 x10(6)/ul 04/20/2025 4:03 AM EDT [facility] Heme Coag UA SS HGB 11.1(L) 13.0 - 17.5 Gram/dL 04/20/2025 4:03 AM EDT [facility] Heme Coag UA SS Hematocrit 32.2(L) 38.0 - 51.0 % 04/20/2025 4:03 AM EDT [facility] Heme Coag UA SS MCV 84.1 79.0 - 92.2 fL 04/20/2025 4:03 AM EDT [facility] Heme Coag UA SS MCH 28.9 25.6 - 32.2 pg 04/20/2025 4:03 AM EDT [facility] Heme Coag UA SS MCHC 34.4 32.3 - 36.5 Gram/dL 04/20/2025 4:03 AM EDT [facility] Heme Coag UA SS RDW 14.9 11.0 - 15.5 % 04/20/2025 4:03 AM EDT [facility] Heme Coag UA SS Platelets 443(H) 140 - 420 x10(3)/ul 04/20/2025 4:03 AM EDT [facility] Heme Coag UA SS MPV 7.0 6.5 - 12.0 fL 04/20/2025 4:03 AM EDT [facility] Heme Coag UA SS SLIDE REVIEW NONE 04/20/2025 4:03 AM EDT [facility] CH Remisol 2.0 SS Blood 04/20/2025 3:47 AM EDT 04/20/2025 3:56 AM EDT [facility] - 04/20/2025 4:03 AM EDT Performed by [facility], [address] [place] [address] us Non-Ulp Provider LAB BLOOD ORDERABLES Final Resu lt Performing Organization Address [facility] de Phone Number [facility] [address] [place] [address], [facility] Heme Coag UA SS Pathology Department [address] [place] [address] CH Remisol 2.0 Pathology Department [address] [place] [id number] * (ABNORMAL) Phosphorus (04/20/2025 3:47 AM EDT) Only the most recent of29 resultswithin the time period is included. Phosphorus 5.7(H) 2.5 - 5.0 mg/dL 04/20/2025 4:23 AM EDT [facility] CH Remisol 2.0 SS Blood 04/20/2025 3:47 AM EDT 04/20/2025 3:56 AM EDT [facility] - 04/20/2025 4:23 AM EDT Performed by [facility], [address] [place] [address] Ivon Rucker MD LAB BLOOD ORDERABLES Final Resul t Performing Organization Address [facility] Co de Phone Number [facility] [address] [place] [address], [facility] CH Remisol 2.0 Pathology Department [address] [place] [address] * (ABNORMAL) Magnesium (04/20/2025 3:47 AM EDT) Only the most recent of30 resultswithin the time period is included. Magnesium 1.7(L) 1.9 - 2.7 mg/dL 04/20/2025 4:23 AM EDT [facility] CH Remisol 2.0 SS Blood 04/20/2025 3:47 AM EDT 04/20/2025 3:56 AM EDT [facility] - 04/20/2025 4:23 AM EDT Performed by [facility], [address] [place] [id number] us Ivon Rucker MD LAB BLOOD ORDERABLES Final Resul t [facility] [address] [place] [address], [facility] CH Remisol 2.0 SS Pathology Department [address] [place] [address] * (ABNORMAL) Basic Metabolic Panel (04/20/2025 3:47 AM EDT) Only the most recent of30 resultswithin the time period is included. Glucose 118(H) 74 - 109 mg/dL 04/20/2025 4:23 AM EDT [facility] CH Remisol 2.0 SS BUN 21 7 - 25 mg/dL 04/20/2025 4:23 AM EDT [facility] CH Remisol 2.0 SS Creatinine 0.62(L) 0.70 - 1.30 mg/dL 04/20/2025 4:23 AM EDT [facility] CH Remisol 2.0 SS Sodium 130(L) 136 - 145 mmol/L 04/20/2025 4:23 AM EDT [facility] CH Remisol 2.0 SS Potassium 4.2 3.5 - 5.1 mmol/L 04/20/2025 4:23 AM EDT [facility] CH Remisol 2.0 SS Chloride 97(L) 98 - 110 mmol/L 04/20/2025 4:23 AM EDT [facility] CH Remisol 2.0 SS CO2 25 21 - 31 mmol/L 04/20/2025 4:23 AM EDT [facility] CH Remisol 2.0 SS Comment:LDH (LD) levels abov e 2000 U/L will result in a positive bias on the CO2 (bicarbonate) level. Please interpret with caution. Anion Gap 8.0 2.0 - 11.0 04/20/2025 4:23 AM EDT [facility] CH Remisol 2.0 SS Calcium 9.3 8.6 - 10.2 mg/dL 04/20/2025 4:23 AM EDT [facility] CH Remisol 2.0 SS BUN/Creatinine Ratio 33.9(H) 6.0 - 22.0 04/20/2025 4:23 AM EDT [facility] CH Remisol 2.0 SS EGFR 128 >=60 mL/min/1.7 3m2 04/20/2025 4:23 AM EDT [facility] CH Remisol 2.0 SS Comment:eGFR calculation per formed using the CKD-EPI 2020 equation (race variable excluded) Blood 04/20/2025 3:47 AM EDT 04/20/2025 3:56 AM EDT [facility] - 04/20/2025 4:23 [place] [address] us Non-Ulp Provider LAB BLOOD ORDERABLES Final Resu lt [facility] [address] [place] [address], [facility] CH Remisol 2.0 SS Pathology Department [address] [place] [address] * CULTURE BODY FLUID AND STAIN (04/12/2025 3:31 PM EDT) Other Abdominal wall / Unknown 04/12/2025 3:31 PM EDT 04/12/2025 5:59 PM EDT [facility] - 04/17/2025 3:03 PM EDT Patient: JENNIFER AGUILLON : 1990 Sex: Male Microbiology - Bacteriology PROCEDURE: Culture Body Fluid and Stain [R1] COLLECTED DATE/TIME: 04/12/2025 15:31 EDT SOURCE: Drainage START DATE/TIME: 04/12/2025 17:59 EDT BODY SITE: Abdomen ORDERING PHYSICIAN ENRIQUE MOODY MD-RAD FREE TEXT SOURCE: FINAL REPORTS Final Report [] Verified Date/Time: 04/17/2025 15:03 EDT Rare Growth Mixed wilmer Stains/Preps GS [] Verified Date/Time: 04/12/2025 20:36 EDT 4+ WBC's (>25 WBC/LPF) No organisms seen. Performing Locations R1: This test was performed at: [facility], Pathology Department, [address] [place] [address], [address] [place] [address], Enrique Barr MD LAB BLOOD ORDERABLES Cheryle l Result [facility] [address] [place] [address] * CT DRAINAGE PERITONEAL (04/12/2025 2:49 PM EDT) Anatomical Region Laterality Modality Upper Extremities, Elbow Left Compute d Tomography 04/12/2025 2:49 PM EDT Narrative 04/13/2025 2:[address] Drainage Peritoneal 04/12/2025 14:49 EXAMINATION: CT-guided right kidney biopsy DATE: 04/12/2025 14:49 PROVIDED INDICATION: Interval worsening left retroperitoneal fluid collection. Patient presents for drainage catheter placement. CONSENT: The risks and benefits of the procedure and its alternatives were explained to the patient. The patient had ample opportunity to ask questions and agreed to proceed with the procedure. Informed consent was then obtained. SEDATION/ANESTHESIA: Moderate IV conscious sedation was administered by a nurse under trained independent observer/provider supervision with continuous nursing monitoring. Conscious sedation was performed for approximately 11 minutes utilizing intravenous fentanyl and Versed. PROCEDURE IN DETAIL: The patient was brought to the procedure room and placed in the right lateral decubitus position on the table. A grid was placed over the skin, and a preliminary CT imaging was performed to choose an appropriate location for access. Once the site was chosen, the overlying skin was prepped and draped in the usual sterile manner. All elements of maximal sterile technique were utilized. Lidocaine 1% was used for local anesthetic. Using intermittent CT imaging, a 19-gauge needle was advanced into the left retroperitoneal fluid collection. Once the needle tip was within the collection, a wire was advanced and looped within the collection. The access was appropriately dilated, and a 12 pigtail catheter was advanced into position over the wire. The catheter was secured in place with sutures and a stay fix dressing then attached to a bag for gravity drainage. 20 cc of grossly purulent fluid was aspirated and sent to laboratory for culture analysis. Postprocedural imaging demonstrated satisfactory findings. The patient tolerated the procedure well and left the procedure area in baseline condition. Findings: As above IMPRESSION: Immediately uneventful CT-guided percutaneous drainage catheter placement within the left retroperitoneal fluid collection. PLAN: Flush with 10 cc of normal saline every 12 hours. Please follow-up laboratory results. Dictated by: Enrique Moody M.D. Signed by Enrique Moody M.D. on 04/13/2025 2:52 ##### Final ##### Dictated by: ENRIQUE MOODY MD-RAD Dictated DT/TM: 04/13/2025 2:52 am Interpreted and electronically signed by: ENRIQUE MOODY MD-RAD Signed DT/TM: 04/13/2025 2:52 am Procedure Note Enrique Pulido MD - 04/13/2025 CT Drainage Peritoneal 04/12/2025 14:49 EXAMINATION: CT-guided right kidney biopsy DATE: 04/12/2025 14:49 PROVIDED INDICATION: Interval worsening left retroperitoneal fluidcollection. Patient presents for drainage catheter placement. CONSENT: The risks and benefits of the procedure and its alternatives wereexplained to the patient. The patient had ample opportunity to askquestions and agreed to proceed with the procedure. Informed consent wasthen obtained. SEDATION/ANESTHESIA: Moderate IV conscious sedation was administered by anurse under trained independent observer/provider supervision withcontinuous nursing monitoring. Conscious sedation was performed forapproximately 11 minutes utilizing intravenous fentanyl and Versed. PROCEDURE IN DETAIL: The patient was brought to the procedure room and placed in the rightlateral decubitus position on the table. A grid was placed over the skin,and a preliminary CT imaging was performed to choose an appropriatelocation for access. Once the site was chosen, the overlying skin wasprepped and draped in the usual sterile manner. All elements of maximalsterile technique were utilized. Lidocaine 1% was used for localanesthetic. Using intermittent CT imaging, a 19-gauge needle was advancedinto the left retroperitoneal fluid collection. Once the needle tip waswithin the collection, a wire was advanced and looped within thecollection. The access was appropriately dilated, and a 12 pigtailcatheter was advanced into position over the wire. The catheter wassecured in place with sutures and a stay fix dressing then attached to aba for gravity drainage. 20 cc of grossly purulent fluid was aspiratedand sent to laboratory for culture analysis. Postprocedural imagingdemonstrated satisfactory findings. The patient tolerated the procedure well and left the procedure area inbaseline condition. Findings: As above IMPRESSION: Immediately uneventful CT-guided percutaneous drainage catheter placementwithin the left retroperitoneal fluid collection. PLAN: Flush with 10 cc of normal saline every 12 hours. Please follow-up laboratory results. Dictated by: Enrique Moody M.D. Signed by Enrique Moody M.D. on04/13/2025 2:52 ##### Final ##### Dictated by: ENRIQUE MOODY MD-RAD Dictated DT/TM: 04/13/2025 2:52 am Interpreted and electronically signed by: ENRIQUE MOODY MD-RAD Signed DT/TM: 04/13/2025 2:52 am Ekaterina Mohan MD [facility] CT PROCEDURES Final Result * (ABNORMAL) PT/INR PROTHROMBIN TIME PTT (04/12/2025 1:03 PM EDT) Only the most recent of2 resultswithin the time period is included. PT 13.8(H) 10.2 - 12.9 Second 04/12/2025 1:53 PM EDT [facility] Heme Coag UA INR 1.2 04/12/2025 1:53 PM EDT [facility] Heme Coag UA Comment: Recommended INR range for Oral Anticoagulant Therapy : STANDARD: 2.0 - 3.0 HIGH: 3.0 - 4.5 NOTE: Recommended range will be different for patients with mechanical implants. PTT 28.9 26.6 - 35.9 Second 04/12/2025 1:53 PM EDT L Heme Coag UA Comment:Heparin therapeutic range is 55-95 sec. When the PTT is> 95 sec, if on heparin, refer to heparin protocol. If not on heparin, recommend appropriate workup. Blood 04/12/2025 1:03 PM EDT 04/12/2025 1:14 PM EDT [facility] LAB - 04/12/2025 1:53 [place] [address] Enrique Barr MD LAB BLOOD ORDERABLES Cheryle l Result Performing Organization Address City/State/[facility] Co de Phone Number [facility] [address] [place] [address], [facility] Heme Coag UA Pathology Department [address] [place] [address] * (ABNORMAL) Comprehensive metabolic panel (04/11/2025 6:55 PM EDT) Only the most recent of2 resultswithin the time period is included. Sodium 130(L) 136 - 145 mmol/L 04/11/2025 7:55 PM EDT [facility] CH Remisol 2.0 SS Potassium 4.3 3.5 - 5.1 mmol/L 04/11/2025 7:55 PM EDT [facility] CH Remisol 2.0 SS Chloride 98 98 - 110 mmol/L 04/11/2025 7:55 PM EDT [facility] CH Remisol 2.0 SS CO2 25 21 - 31 mmol/L 04/11/2025 7:55 PM EDT [facility] CH Remisol 2.0 SS Anion Gap 7.0 2.0 - 11.0 04/11/2025 7:55 PM EDT [facility] CH Remisol 2.0 SS Calcium 9.0 8.6 - 10.2 mg/dL 04/11/2025 7:55 PM EDT L CH Remisol 2.0 SS Glucose 89 74 - 109 mg/dL 04/11/2025 7:55 PM EDT L CH Remisol 2.0 SS BUN 16 7 - 25 mg/dL 04/11/2025 7:55 PM EDT [facility] CH Remisol 2.0 SS Creatinine 0.62(L) 0.70 - 1.30 mg/dL 04/11/2025 7:55 PM EDT [facility] CH Remisol 2.0 SS BUN/Creatinine Ratio 25.8(H) 6.0 - 22.0 04/11/2025 7:55 PM EDT L CH Remisol 2.0 SS Albumin 3.5 3.5 - 5.2 Gram/dL 04/11/2025 7:55 PM EDT [facility] CH Remisol 2.0 SS Total Protein 8.0 6.4 - 8.9 Gram/dL 04/11/2025 7:55 PM EDT [facility] CH Remisol 2.0 SS A/G Ratio 0.8(L) 1.0 - 2.5 04/11/2025 7:55 PM EDT [facility] CH Remisol 2.0 SS Alkaline Phosphatase 96 34 - 104 Units/Lite r 04/11/2025 7:55 PM EDT L CH Remisol 2.0 SS ALT (SGPT) 28 <=32 Units/Lite r 04/11/2025 7:55 PM EDT [facility] CH Remisol 2.0 SS AST 26 13 - 39 Units/Lite r 04/11/2025 7:55 PM EDT [facility] CH Remisol 2.0 SS Total Bilirubin 0.3 0.3 - 1.0 mg/dL 04/11/2025 7:55 PM EDT [facility] CH Remisol 2.0 SS Globulin, Total 4.5(H) 2.0 - 3.5 Gram/dL 04/11/2025 7:55 PM EDT L CH Remisol 2.0 SS EGFR 128 >=60 mL/min/1.7 3m2 04/11/2025 7:55 PM EDT L CH Remisol 2.0 SS Comment:eGFR calculation per formed using the CKD-EPI 2020 equation (race variable excluded) Blood 04/11/2025 6:55 PM EDT 04/11/2025 7:33 PM EDT Narrative [facility] - 04/11/2025 7:55 PM EDT Performed by [facility], [address] [facility], [place] [address] Chucho Betts MD LAB BLOOD ORDERABLES Final Resul t [facility] [address] [place] [address], [facility] Remisol 2.0 SS Pathology Department [address] [place] [address] * CT Abdomen Pelvis without IV contrast (04/11/2025 6:37 PM EDT) Anatomical Region Laterality Modality Body, Pelvis, Abdomen Computed T omography 04/11/2025 6:37 PM EDT Narrative 04/11/2025 6:47 PM EDT ACCESSION NUMBER: [id number] DATE: 04/11/2025 18:37 EXAMINATION: CT Abdomen Pelvis WO PROVIDED INDICATION: Other (Please Specify): Drain Study TECHNIQUE: Multiple axial CT images of the abdomen and pelvis were obtained without injection of IV contrast. COMPARISON: 03/29/2025 FINDINGS: Tubes/Lines: Gastrostomy tube in place. Satisfactory placement. Other tubes as described below. Included lower chest: Normal. Liver: Normal. Biliary: Cholecystectomy. Biliary stent in place. Pancreas: Changes of acute pancreatitis with peripancreatic fluid. # Axios stent in place. The fluid collection anterior to the pancreas has decreased in AP diameter, now measuring 1.3 cm as compared to 2.8 cm in the previous exam. # Previously seen pigtail catheter in the left posterior pararenal space collection has been removed. The collection has increased in size measuring 6.2 x 11 x 16.9 cm, previously 3.2 x 7.6 x 12.4 cm. # Pigtail catheter has been placed in the right posterior pararenal space collection which has markedly decreased in size, now measuring 2.4 x 3.2 x 3.2 cm, previously 7 x 6.3 x 9.5 cm. # No other obvious collection is identified. Spleen: Normal. Adrenal glands: Normal. Gastrointestinal: Right mid abdominal ostomy. Peritoneum: Normal. Urinary tract: Normal. Retroperitoneum: Normal. Reproductive: Prostate gland is normal in size. Lymph node regions: Normal. Vessels: Normal. Body wall: Normal. Bones: Normal. IMPRESSION: 1. Sequela of acute pancreatitis. 2. Decrease in the size of the fluid collections anterior to the pancreas and in the right posterior pararenal space, with drainage in place. 3. Removal of the previously placed left pararenal collection pigtail catheter with increase in the size of the collection. Dictated by: Paul Shay MD Signed by Paul Shay MD on 04/12/2025 7:49 ##### Final ##### Dictated by: PAUL SHAY MD-RAD Dictated DT/TM: 04/12/2025 7:49 am Interpreted and electronically signed by: PAUL SHAY MD-RAD Signed DT/TM: 04/12/2025 7:49 am Procedure Note Paul Shay MD - 04/12/2025 ACCESSION NUMBER: [id number] DATE: 04/11/2025 18:37 EXAMINATION: CT Abdomen Pelvis WO PROVIDED INDICATION: Other (Please Specify): Drain Study TECHNIQUE: Multiple axial CT images of the abdomen and pelvis wereobtained without injection of IV contrast. COMPARISON: 03/29/2025 FINDINGS: Tubes/Lines: Gastrostomy tube in place. Satisfactory placement. Othertubes as described below. Included lower chest: Normal. Liver: Normal. Biliary: Cholecystectomy. Biliary stent in place. Pancreas: Changes of acute pancreatitis with peripancreatic fluid. # Axios stent in place. The fluid collection anterior to the pancreas hasdecreased in AP diameter, now measuring 1.3 cm as compared to 2.8 cm inthe previous exam. # Previously seen pigtail catheter in the left posterior pararenal spacecollection has been removed. The collection has increased in sizemeasuring 6.2 x 11 x 16.9 cm, previously 3.2 x 7.6 x 12.4 cm. # Pigtail catheter has been placed in the right posterior pararenal spacecollection which has markedly decreased in size, now measuring 2.4 x 3.2 x3.2 cm, previously 7 x 6.3 x 9.5 cm. # No other obvious collection is identified. Spleen: Normal. Adrenal glands: Normal. Gastrointestinal: Right mid abdominal ostomy. Peritoneum: Normal. Urinary tract: Normal. Retroperitoneum: Normal. Reproductive: Prostate gland is normal in size. Lymph node regions: Normal. Vessels: Normal. Body wall: Normal. Bones: Normal. IMPRESSION: 1. Sequela of acute pancreatitis. 2. Decrease in the size of the fluid collections anterior to the pancreasand in the right posterior pararenal space, with drainage in place. 3. Removal of the previously placed left pararenal collection pigtailcatheter with increase in the size of the collection. Dictated by: Paul Shay MD Signed by Paul Shay MD on04/12/2025 7:49 ##### Final ##### Dictated by: PAUL SHAY MD-RAD Dictated DT/TM: 04/12/2025 7:49 am Interpreted and electronically signed by: PAUL SHAY MD-RAD Signed DT/TM: 04/12/2025 7:49 am Hudson Brown MD IMG CT PROCEDURES Final Result * XA Abscess Drain Peritoneal (04/02/2025 12:20 PM EDT) Anatomical Region Laterality Modality X-Ray Angiograph y 04/02/2025 12:2 0 PM EDT Narrative 04/02/2025 2:09 PM EDT ACCESSION NUMBER: [id number] EXAMINATION: XA Abscess Drain Peritoneal PROCEDURE: 1. Ultrasound-guided left thoracentesis 2. Fluoroscopic-guided left retroperitoneal drain catheter exchange and reposition 3. Fluoroscopic-guided right retroperitoneal drain catheter exchange and reposition Procedure Date: 04/02/2025 Dictation Date: 04/02/2025 Procedural Personnel Primary attending physician: Omar Trujillo MD, MELVI, RPVI Fellow physician(s): None Resident physician(s): None Advanced practice provider(s): None Pre-procedure diagnosis: Pancreatitis Post-procedure diagnosis: Same Indication: Drain management Additional clinical history: Pleural effusion Complications: No immediate complications. IMPRESSION: 1. Ultrasound-guided LEFT thoracentesis with drainage of 1 2000 cc of serous fluid. 2. Fluoroscopic guided LEFT retroperitoneal drainage catheter exchange and repositioning with a new 20 Monegasque nonlocking pigtail drainage catheter. A total of 200 cc of necrotic fluid were aspirated. 3. Fluoroscopic guided RIGHT retroperitoneal drainage catheter exchange and repositioning with a new 14 Monegasque locking biliary pigtail drainage catheter. A total of 100 cc of necrotic fluid were aspirated. Plan: The catheters should be flushed twice daily with 10 cc normal saline to maintain catheter patency. PROCEDURE SUMMARY: - Ultrasound-guided thoracentesis - Drainage catheter check under fluoroscopic guidance - Drainage catheter exchange and repositioning under fluoroscopy - Additional procedure(s): None PROCEDURE DETAILS: Pre-procedure Last thoracentesis: None Last catheter exchange: 03/14/2025 Consent: The nature and purpose, potential benefits and risks, and alternatives to the procedure (including the option of foregoing any intervention) were discussed with the patient, and written and verbal consents obtained and witnessed. The patient was then brought to the procedure area and a time out performed in accordance with hospital protocol, which included consent verification. Preparation: The site was prepared and draped using maximal sterile barrier technique including cutaneous antisepsis. Anesthesia/sedation Level of anesthesia/sedation: Moderate sedation (conscious sedation) Anesthesia/sedation administered by: Independent trained observer under attending supervision with continuous monitoring of the patient's level of consciousness and physiologic status Total intra-service sedation time (minutes): 60 Medications Midazolam: 1 mg Fentanyl: 50 mcg Local anesthesia: 1% subdermal lidocaine Antibiotics: See inpatient medication record Procedure technique and findings Informed written consent was obtained and witnessed. The patient was then brought to the interventional procedure suite, placed in a prone position, and a timeout was performed. The patient's posterior thorax , bilateral flank and indwelling catheters was prepped and draped in standard sterile fashion. Limited preliminary ultrasound revealed a large left pleural effusion without septations. Following local anesthesia with 1% lidocaine, a skin juan was made with a #11 scalpel. A 5 Monegasque 19-gauge Yueh catheter/needle was then directed via an intercostal approach along the superior edge of a rib into the left hemithorax towards the pleural fluid under ultrasound guidance, with a recorded ultrasound image of the needle in the fluid obtained. Fluid was aspirated from the needle. The needle was removed from the catheter and an additional 1000 cc of similar-appearing fluid was then removed with the assistance of bottle suction. The Yueh catheter was removed under breath-hold technique, and a sterile occlusive dressing applied. Catheter size (Fr):5 Catheter valve: Yes Fluid appearance: serous Volume drained (mL): 1000 Aspiration from the left flank catheter yielded thick purulent fluid. Contrast was then gently injected into the catheter, demonstrating catheter patency. The pocket around the catheter extended up the paracolic gutter. Multiple images in different obliquities were obtained to confirm this. Given that the catheter was reportedly leaking as well as imaging showing an adequate drainage of the fluid collection, the decision was made to exchange and reposition the catheter for a new catheter. Therefore, the skin was anesthetized with 1% local lidocaine, the catheter tip unformed, and the catheter was removed over a 0.035 inch Glidewire. Following this, a 4 Monegasque Kumpe catheter was advanced over the wire, and the wire was repositioned more superior in the left upper quadrant. The catheter was then exchanged for a new 20 Monegasque nonlocking loop drainage catheter. The wire was removed and the pigtail was performed. Brief contrast injection was then performed to confirm catheter tip placement. Then, approximately 200 cc of thick necrotic fluid were aspirated. The catheter was sutured into place with nonabsorbable suture. A sterile dressing was placed, and the catheter was connected to negative pressure drainage. Access route: Percutaneous Internal catheter securement: Locking loop Catheter placed: [employer] Thal Quick Catheter size (Monegasque): 20 Fluid type: Necrotic fluid Total volume removed: 200 ml Drainage appliance: Negative pressure (Accordion) External catheter securement: Non-absorbable suture Aspiration from the right flank catheter yielded thick purulent fluid. Contrast was then gently injected into the catheter, demonstrating catheter patency. The pocket around the catheter extended up to the right upper quadrant. Multiple images in different obliquities were obtained to confirm this. . Given that the catheter was reportedly leaking as well as imaging showing an adequate drainage of the fluid collection, the decision was made to exchange and reposition the catheter for a new catheter. Therefore, the skin was anesthetized with 1% local lidocaine, the catheter tip unformed, and the catheter was removed over a 0.035 inch Glidewire. Following this, a 4 Monegasque Kumpe catheter was advanced over the wire, and the wire was repositioned more superior in the right upper quadrant. The catheter was then exchanged for a new 14 Monegasque biliary type drainage catheter with extra proximal sideholes. The wire was removed and the pigtail was locked. Brief contrast injection was then performed to confirm catheter tip placement. Then, approximately 100 cc of thick necrotic fluid were aspirated. The catheter was sutured into place with nonabsorbable suture. A sterile dressing was placed, and the catheter was connected to negative pressure drainage. Access route: Percutaneous Internal catheter securement: Locking loop Catheter placed: [employer] Biliary Catheter size (Monegasque): 14 Fluid type: Necrotic fluid Total volume removed: 100 ml Drainage appliance: Negative pressure (Accordion) External catheter securement: Non-absorbable suture The patient tolerated the procedure and was transported in safe, stable condition from the procedure suite. Contrast Contrast agent: Visipaque 320 Contrast volume (mL): 55 Radiation Dose Fluoroscopy time (minutes): 8.3 Reference air kerma (mGy): 135 In accordance with fluoroscopy policies/protocols and the ALARA principle, radiation dose reduction techniques were utilized for this examination. Additional Details Additional description of procedure: None Specimens removed: Aspirated fluid was not sent for analysis. Estimated blood loss (mL): Less than 10 Attestation Signer name: Omar Trujillo MD, MELVI, RPVI I attest that I was present for the entire procedure. I reviewed the stored images and agree with the report as written. Omar Trujillo MD, MBA, RPVI fashion buyer Division of Vascular and Interventional Radiology Department of Radiology [address] [place] [id number] Dictated by: Omar Trujillo MD, MBA Signed by Omar Trujillo MD, MBA on 04/02/2025 14:37 ##### Final ##### Dictated by: OMAR TRUJILLO MD-RAD Dictated DT/TM: 04/02/2025 2:37 pm Interpreted and electronically signed by: OMAR TRUJILLO MD-RAD Signed DT/TM: 04/02/2025 2:37 pm Procedure Note Omar Trujillo MD - 04/02/2025 ACCESSION NUMBER: [id number] EXAMINATION: XA Abscess Drain Peritoneal PROCEDURE: 1. Ultrasound-guided left thoracentesis 2. Fluoroscopic-guided left retroperitoneal drain catheter exchange andreposition 3. Fluoroscopic-guided right retroperitoneal drain catheter exchange andreposition Procedure Date: 04/02/2025 Dictation Date: 04/02/2025 Procedural Personnel Primary attending physician: Omar Trujillo MD, MELVI, RPVI Fellow physician(s): None Resident physician(s): None Advanced practice provider(s): None Pre-procedure diagnosis: Pancreatitis Post-procedure diagnosis: Same Indication: Drain management Additional clinical history: Pleural effusion Complications: No immediate complications. IMPRESSION: 1. Ultrasound-guided LEFT thoracentesis with drainage of 1 2000 cc ofserous fluid. 2. Fluoroscopic guided LEFT retroperitoneal drainage catheter exchange andrepositioning with a new 20 Monegasque nonlocking pigtail drainage catheter. Atotal of 200 cc of necrotic fluid were aspirated. 3. Fluoroscopic guided RIGHT retroperitoneal drainage catheter exchangeand repositioning with a new 14 Monegasque locking biliary pigtail drainagecatheter. A total of 100 cc of necrotic fluid were aspirated. Plan: The catheters should be flushed twice daily with 10 cc normal saline tomaintain catheterpatency. PROCEDURE SUMMARY: - Ultrasound-guided thoracentesis - Drainage catheter check under fluoroscopic guidance - Drainage catheter exchange and repositioning under fluoroscopy - Additional procedure(s): None PROCEDURE DETAILS: Pre-procedure Last thoracentesis: None Last catheter exchange: 03/14/2025 Consent: The nature and purpose, potential benefits and risks, andalternatives to the procedure (including the option of foregoing anyintervention) were discussed with the patient, and written and verbalconsents obtained and witnessed. [facility] and a time out performed in accordance with hospitalprotocol, which included consent verification. Preparation: The site was prepared and draped using maximal sterilebarrier technique including cutaneous antisepsis. Anesthesia/sedation Level of anesthesia/sedation: Moderate sedation (conscious sedation) Anesthesia/sedation administered by: Independent trained observer underattending supervision with continuous monitoring of the patient's level ofconsciousness and physiologic status Total intra-service sedation time (minutes): 60 Medications Midazolam: 1 mg Fentanyl: 50 mcg Local anesthesia: 1% subdermal lidocaine Antibiotics: See inpatient medication record Procedure technique and findings Informed written consent was obtained and witnessed. The patient was thenbrought to the interventional procedure suite, placed in a prone position,and a timeout was performed. The patient's posterior thorax , bilateral flank and indwelling catheterswas prepped and draped in standard sterile fashion. Limited preliminary ultrasound revealed a large left pleural effusionwithout septations. Following local anesthesia with 1% lidocaine, a skinnick was made with a #11 scalpel. A 5 Monegasque 19-gauge Yueh catheter/needlewas then directed via an intercostal approach along the superior edge of arib into the left hemithorax towards the pleural fluid under ultrasoundguidance, with a recorded ultrasound image of the needle in the fluidobtained. Fluid was aspirated from the needle. The needle was removedfrom the catheter and an additional 1000 cc of similar-appearing fluid wasthen removed with the assistance of bottle suction. The Yueh catheter wasremoved under breath-hold technique, and a sterile occlusive dressingapplied. Catheter size (Fr):5 Catheter valve: Yes Fluid appearance: serous Volume drained (mL): 1000 Aspiration from the left flank catheter yielded thick purulent fluid.Contrast was then gently injected into the catheter, demonstratingcatheter patency. The pocket around the catheter extended up the paracolicgutter. Multiple images in different obliquities were obtained to confirmthis. Given that the catheter was reportedly leaking as well as imagingshowing an adequate drainage of the fluid collection, the decision wasmade to exchange and reposition the catheter for a new catheter. Therefore, the skin was anesthetized with 1% local lidocaine, the cathetertip unformed, and the catheter was removed over a 0.035 inch Glidewire.Following this, a 4 Monegasque Kumpe catheter was advanced over the wire, andthe wire was repositioned more superior in the left upper quadrant. Thecatheter was then exchanged for a new 20 Monegasque nonlocking loop drainagecatheter. The wire was removed and the pigtail was performed. Briefcontrast injection was then performed to confirm catheter tip placement.Then, approximately 200 cc of thick necrotic fluid were aspirated. Thecatheter was sutured into place with nonabsorbable suture. A steriledressing was placed, and the catheter was connected to negative pressuredrainage. Access route: Percutaneous Internal catheter securement: Locking loop Catheter placed: [employer] Thal Quick Catheter size (Monegasque): 20 Fluid type: Necrotic fluid Total volume removed: 200 ml Drainage appliance: Negative pressure (Accordion) External catheter securement: Non-absorbable suture Aspiration from the right flank catheter yielded thick purulent fluid.Contrast was then gently injected into the catheter, demonstratingcatheter patency. The pocket around the catheter extended up to the rightupper quadrant. Multiple images in different obliquities were obtained toconfirm this. . Given that the catheter was reportedly leaking as well asimaging showing an adequate drainage of the fluid collection, the decisionwas made to exchange and reposition the catheter for a new catheter. Therefore, the skin was anesthetized with 1% local lidocaine, the cathetertip unformed, and the catheter was removed over a 0.035 inch Glidewire.Following this, a 4 Monegasque Kumpe catheter was advanced over the wire, andthe wire was repositioned more superior in the right upper quadrant. Thecatheter was then exchanged for a new 14 Monegasque biliary type drainagecatheter with extra proximal sideholes. The wire was removed and thepigtail was locked. Brief contrast injection was then performed to confirmcatheter tip placement. Then, approximately 100 cc of thick necrotic fluidwere aspirated. The catheter was sutured into place with nonabsorbablesuture. A sterile dressing was placed, and the catheter was connected tonegative pressure drainage. Access route: Percutaneous Internal catheter securement: Locking loop Catheter placed: [employer] Biliary Catheter size (Monegasque): 14 Fluid type: Necrotic fluid Total volume removed: 100 ml Drainage appliance: Negative pressure (Accordion) External catheter securement: Non-absorbable suture The patient tolerated the procedure and was transported in safe, stablecondition from the procedure suite. Contrast Contrast agent: Visipaque 320 Contrast volume (mL): 55 Radiation Dose Fluoroscopy time (minutes): 8.3 Reference air kerma (mGy): 135 In accordance with fluoroscopy policies/protocols and the ALARA principle,radiation dose reduction techniques were utilized for this examination. Additional Details Additional description of procedure: None Specimens removed: Aspirated fluid was not sent for analysis. Estimated blood loss (mL): Less than 10 Attestation Signer name: Omar Trujillo MD, MELVI, RPVI I attest that I was present for the entire procedure. I reviewed thestored images and agree with the report as written. Omra Trujillo MD, MELVI, RPVI fashion buyer Division of Vascular and Interventional Radiology Department of Radiology [address] [place] [address] Dictated by: Omar Trujillo MD, MBA Signed by Omar Wetzel MD, MBA on 04/02/2025 14:37 ##### Final ##### Dictated by: OMAR TRUJILLO MD-RAD Dictated DT/TM: 04/02/2025 2:37 pm Interpreted and electronically signed by: OMAR TRUJILLO MD-RAD Signed DT/TM: 04/02/2025 2:37 pm Ekaterina Mohan MD IMG IR PROCEDURES Final Result * ABO/Rh (04/02/2025 10:14 AM EDT) HX CHECK Yes Prev Hx 04/02/2025 10:28 AM EDT [facility] Blood Bank Subsection\.br \ METHOD Willett 2 04/02/2025 11:10 AM EDT [facility] Blood Bank Subsection\.br \ ANTI-A 40 04/02/2025 11:07 AM EDT [facility] Blood Bank Subsection\.br \ ANTI-B 0 04/02/2025 11:07 AM EDT [facility] Blood Bank Subsection\.br \ ANTI-D 40 04/02/2025 11:07 AM EDT [facility] Blood Bank Subsection\.br \ A1 0 04/02/2025 11:07 AM EDT [facility] Blood Bank Subsection\.br \ B 30 04/02/2025 11:07 AM EDT [facility] Blood Bank Subsection\.br \ ABORh A POS 04/02/2025 11:10 AM EDT [facility] Blood Bank Subsection\.br \ Blood 04/02/2025 10:1 4 AM EDT 04/02/2025 10:24 AM EDT [facility] LAB - 04/02/2025 11:10 AM EDT Performed by [facility], [address] [place] [address] us Sia Vaughn MD LAB BLOOD BANK TE ST ORDERABLES Final Result [address] [address], [facility] Blood Bank Subsection\.br\ Pathology Department [address] [place] [address] * Antibody screen (04/02/2025 10:14 AM EDT) Pathologist [facility] ANTIBODY SCREEN Negative ABSC 04/02/2025 11:29 AM EDT [facility] Blood Bank Subsection\.b r\ Blood 04/02/2025 10:1 4 AM EDT 04/02/2025 10:24 AM EDT [facility] LAB - 04/02/2025 11:29 AM EDT Performed by [facility], [address] [place] [id number] [place] Sia Vaughn MD LAB BLOOD BANK TE ST ORDERABLES Final Result [facility] [address] [place] [address], [facility] Blood Bank Subsection\.br\ Pathology Department [address] [place] [address] * CT Abdomen Pelvis with IV contrast (03/29/2025 9:18 AM EDT) Anatomical Region Laterality Modality Body, Pelvis, Abdomen Computed T omography 03/29/2025 9:18 AM EDT Narrative 03/29/2025 9:18 AM EDT ACCESSION NUMBER: [id number] DATE: 03/29/2025 9:18 EXAMINATION: CT Abdomen Pelvis W PROVIDED INDICATION: Pancreatitis: necrotizing panc interval eval COMPARISON: CT abdomen pelvis 03/18/2025. TECHNIQUE: Helical computed tomographic images of the abdomen and pelvis after administration of intravenous contrast. Oral contrast was not administered. Coronal and sagittal reformats of the abdomen and pelvis were included. FINDINGS: Lower Chest: Partially imaged moderate volume partially loculated left pleural fluid collection is grossly unchanged in volume and remains associated with complete atelectasis of the visualized encased left lower lobe. Small right pleural effusion appears slightly worsened since 03/18/2025 and remains associated with mild adjacent left lower lobe atelectasis. Trace pericardial effusion. Liver: Normal contour. A few subcentimeter hypodense hepatic lesions are stable and likely represent cysts or hemangiomas. Mild persistent periportal edema likely represents reactive inflammation in the setting of severe pancreatitis. Biliary Tree/Gallbladder: Gas within a contracted gallbladder is likely iatrogenic in the setting of multiple recent biliary interventions. Plastic double pigtail biliary stent is not significantly changed in position with the proximal pigtail coiled in the central left intrahepatic duct and distal pigtail coiled within the second portion of the duodenum. Mild pneumobilia has resolved. No significant intrahepatic biliary ductal dilation. Pancreas: Main pancreatic duct is normal in caliber. No intrahepatic focal lesions; however, multiple necrotic peripancreatic fluid collections are described separately below. Spleen: Spleen is normal in size. No focal abnormality. Adrenal Glands: Normal. Kidneys/Ureters/Bladder: Symmetric renal cortical thickness. Subcentimeter hypodense right renal cortical lesion is too small at characterize but statistically represents a cyst. No stones or hydronephrosis. No focal bladder wall abnormalities. Genital Structures: Prostate is normal in appearance. Gastrointestinal Tract: Persistent Axios cystogastrostomy with a traversing double-pigtail stent terminating within a necrotic collection in the lesser sac, which is described separately below. Mild gastric wall edema and a long segment of edematous small bowel are likely reactive. No bowel distention to suggest obstruction. Lymphatics: Numerous enlarged mesenteric nodes are similar to prior, likely reactive in etiology. Vasculature: Marked narrowing of the portal confluence and more moderate narrowing of the extra hepatic portal vein, central superior mesenteric vein and central splenic vein is similar to the previous examination, likely secondary to edema. No definite intraluminal thrombus. Diffuse mesenteric hyperemia is similar to prior and likely is diffuse intraperitoneal inflammation. Intrahepatic portal veins are patent. Abdominal aorta and iliac arteries are nonaneurysmal Peritoneum/Retroperitoneum: Diminished abdominal ascites with prominent thickened and hyperenhancing peritoneum, compatible with peritonitis. Multiple communicating, loculated necrotic intraperitoneal and retroperitoneal collections overall remain similar in size in comparison to March 07, 2025. Individual components # A walled off necrotic collection in the lesser sac appears slightly diminished in volume measuring 14 x 2.8 cm versus 15 x 3 cm in the axial plane (series 3 image 37) and continues to communicate with both the right and left retroperitoneal collections (described individually below). A double-pigtail catheter traversing the previously present Axios cystogastrostomy stent terminates within this collection. Right anterior paramedian approach drainage catheter previously terminating within this collection has been removed. # A necrotic right retroperitoneal fluid collection measures approximately 100 x 7.5 x 10.8 cm (AP, TS, CC) (series 3 image 52, series 5 image 41)) versus 12 x 7.5 x 14.8 cm previously and continues to extend inferiorly anterolateral to right psoas muscle. # In addition to communicating the collection in lesser sac, this collection also communicates with a smaller stable 3.3 x 2.4 cm necrotic collection at the mesenteric root (series 3, image 45) and extends into the adjacent posterior lateral right abdominal wall. Two pigtail drainage catheters terminating within the right retroperitoneal fluid collection are not significant changed in position from prior. Left lower quadrant approach drainage catheter has been removed. # A necrotic left retroperitoneal fluid collection, also communicating with the lesser sac collection appears diminished in volume since the comparison study measuring 5 x 9.5 cm versus 3.3 x 8.9 cm in the axial plane (series 3 image 49). A left lateral approach pigtail catheter terminating within the collection has been removed. Posterior wall approach drainage catheter terminating within the inferior aspect of the fluid collection remains unchanged in position. Abdominal Wall/Soft Tissues: Multilobulated, thick-walled, rim-enhancing collection in the posterior lateral right abdominal wall appears to represent direct extension of the necrotic right retroperitoneal collection and appears diminished in size measuring 7 x 7 1 5 cm (series 3 image 41) versus 7.5 x 2 cm. at approximately some 7.5 x 2.0 x 7.0 cm (series 4, image 43 and series 6, image 57). Diffuse body wall edema. Osseous Structures: No acute or suspicious osseous abnormalities. IMPRESSION: 1. Multiple communicating, walled off necrotic collections within the lesser sac, right retroperitoneal space, left retroperitoneal space and along the mesenteric root, each appearing mildly diminished in volume since 03/18/2025. Component of right retroperitoneal collection extending into the adjacent posterior lateral right abdominal wall also appears diminished in volume. 2. Interval removal of right anterior paramidline, left lower quadrant approach and left lateral approach pigtail catheters. Multiple additional drainage catheters are not significantly changed in position. 3. Small volume ascites within the anterior pelvis appears diminished with persistent peritoneal thickening and hyperenhancement, compatible with peritonitis. 4. Marked narrowing of the portal confluence and more moderate narrowing of the extra hepatic portal vein, central superior mesenteric vein and central splenic vein unchanged since the comparison study, likely secondary to edema. No definite intraluminal thrombus. 5. Persistent reactive gastric and small bowel wall edema. 6. Moderate-sized partially loculated left pleural fluid collection, grossly unchanged in volume but remains associated with complete atelectasis of the visualized encased left lower lobe. Small right pleural effusion is similar to prior. I personally participated in the interpretation of this radiology study and concur with the findings. My review and interpretation are documented in this report . Dictated by: Olimpia Prieto Signed by Piotr Ross M.D. on 03/29/2025 18:28 ##### Final ##### Dictated by: OLIMPIA PRIETO, -RAD Dictated DT/TM: 03/29/2025 6:28 pm Interpreted and electronically signed by: PIOTR ROSS MD-RAD Signed DT/TM: 03/29/2025 6:28 pm Procedure Note Piotr Ross MD - 03/29/2025 ACCESSION NUMBER: [id number] DATE: 03/29/2025 9:18 EXAMINATION: CT Abdomen Pelvis W PROVIDED INDICATION: Pancreatitis: necrotizing panc interval eval COMPARISON: CT abdomen pelvis 03/18/2025. TECHNIQUE: Helical computed tomographic images of the abdomen and pelvisafter administration of intravenous contrast. Oral contrast was notadministered. Coronal and sagittal reformats of the abdomen and pelviswere included. FINDINGS: Lower Chest: Partially imaged moderate volume partially loculated leftpleural fluid collection is grossly unchanged in volume and remainsassociated with complete atelectasis of the visualized encased left lowerlobe. Small right pleural effusion appears slightly worsened since03/18/2025 and remains associated with mild adjacent left lower lobeatelectasis. Trace pericardial effusion. Liver: Normal contour. A few subcentimeter hypodense hepatic lesions arestable and likely represent cysts or hemangiomas. Mild persistentperiportal edema likely represents reactive inflammation in the setting ofsevere pancreatitis. Biliary Tree/Gallbladder: Gas within a contracted gallbladder is likelyiatrogenic in the setting of multiple recent biliary interventions.Plastic double pigtail biliary stent is not significantly changed inposition with the proximal pigtail coiled in the central left intrahepaticduct and distal pigtail coiled within the second portion of the duodenum.Mild pneumobilia has resolved. No significant intrahepatic biliary ductaldilation. Pancreas: Main pancreatic duct is normal in caliber. No intrahepatic focallesions; however, multiple necrotic peripancreatic fluid collections aredescribed separately below. Spleen: Spleen is normal in size. No focal abnormality. Adrenal Glands: Normal. Kidneys/Ureters/Bladder: Symmetric renal cortical thickness. Subcentimeterhypodense right renal cortical lesion is too small at characterize butstatistically represents a cyst. No stones or hydronephrosis. No focalbladder wall abnormalities. Genital Structures: Prostate is normal in appearance. Gastrointestinal Tract: Persistent Axios cystogastrostomy with atraversing double-pigtail stent terminating within a necrotic collectionin the lesser sac, which is described separately below. Mild gastric walledema and a long segment of edematous small bowel are likely reactive. Nobowel distention to suggest obstruction. Lymphatics: Numerous enlarged mesenteric nodes are similar to prior,likely reactive in etiology. Vasculature: Marked narrowing of the portal confluence and more moderatenarrowing of the extra hepatic portal vein, central superior mesentericvein and central splenic vein is similar to the previous examination,likely secondary to edema. No definite intraluminal thrombus. Diffusemesenteric hyperemia is similar to prior and likely is diffuseintraperitoneal inflammation. Intrahepatic portal veins are patent.Abdominal aorta and iliac arteries are nonaneurysmal Peritoneum/Retroperitoneum: Diminished abdominal ascites with prominentthickened and hyperenhancing peritoneum, compatible with peritonitis. Multiple communicating, loculated necrotic intraperitoneal andretroperitoneal collections overall remain similar in size in comparisonto March 07, 2025. Individual components # A walled off necrotic collection in the lesser sac appears slightlydiminished in volume measuring 14 x 2.8 cm versus 15 x 3 cm in the axialplane (series 3 image 37) and continues to communicate with both the rightand left retroperitoneal collections (described individually below). Adouble-pigtail catheter traversing the previously present Axioscystogastrostomy stent terminates within this collection. Right anteriorparamedian approach drainage catheter previously terminating within thiscollection has been removed. # A necrotic right retroperitoneal fluid collection measuresapproximately 100 x 7.5 x 10.8 cm (AP, TS, CC) (series 3 image 52, series5 image 41)) versus 12 x 7.5 x 14.8 cm previously and continues to extendinferiorly anterolateral to right psoas muscle. # In addition to communicating the collection in lesser sac, thiscollection also communicates with a smaller stable 3.3 x 2.4 cm necroticcollection at the mesenteric root (series 3, image 45) and extends intothe adjacent posterior lateral right abdominal wall. Two pigtail drainagecatheters terminating within the right retroperitoneal fluid collectionare not significant changed in position from prior. Left lower quadrantapproach drainage catheter has been removed. # A necrotic left retroperitoneal fluid collection, also communicatingwith the lesser sac collection appears diminished in volume since thecomparison study measuring 5 x 9.5 cm versus 3.3 x 8.9 cm in the axialplane (series 3 image 49). A left lateral approach pigtail catheterterminating within the collection has been removed. Posterior wallapproach drainage catheter terminating within the inferior aspect of thefluid collection remains unchanged in position. Abdominal Wall/Soft Tissues: Multilobulated, thick-walled, rim- enhancingcollection in the posterior lateral right abdominal wall appears torepresent direct extension of the necrotic right retroperitonealcollection and appears diminished in size measuring 7 x 7 1 5 cm (series 3image 41) versus 7.5 x 2 cm. at approximately some 7.5 x 2.0 x 7.0 cm(series 4, image 43 and series 6, image 57). Diffuse body wall edema. Osseous Structures: No acute or suspicious osseous abnormalities. IMPRESSION: 1. Multiple communicating, walled off necrotic collections within thelesser sac, right retroperitoneal space, left retroperitoneal space andalong the mesenteric root, each appearing mildly diminished in volumesince 03/18/2025. Component of right retroperitoneal collection extendinginto the adjacent posterior lateral right abdominal wall also appearsdiminished in volume. 2. Interval removal of right anterior paramidline, left lower quadrantapproach and left lateral approach pigtail catheters. Multiple additionaldrainage catheters are not significantly changed in position. 3. Small volume ascites within the anterior pelvis appears diminishedwith persistent peritoneal thickening and hyperenhancement, compatiblewith peritonitis. 4. Marked narrowing of the portal confluence and more moderate narrowingof the extra hepatic portal vein, central superior mesenteric vein andcentral splenic vein unchanged since the comparison study, likelysecondary to edema. No definite intraluminal thrombus. 5. Persistent reactive gastric and small bowel wall edema. 6. Moderate-sized partially loculated left pleural fluid collection,grossly unchanged in volume but remains associated with completeatelectasis of the visualized encased left lower lobe. Small right pleuraleffusion is similar to prior. I personally participated in the interpretation of this radiology studyand concur with the findings. My review and interpretation are documentedin this report . Dictated by: Olimpia Prieto Signed by Piotr Ross M.D. on 03/29/2025 18:28 ##### Final ##### Dictated by: OLIMPIA PRIETO, -RAD Dictated DT/TM: 03/29/2025 6:28 pm Interpreted and electronically signed by: PIOTR ROSS MD-RAD Signed DT/TM: 03/29/2025 6:28 pm Chucho Betts MD IM CT PROCEDURES Final Result * (ABNORMAL) Hepatic function panel (03/29/2025 3:53 AM EDT) Albumin 2.5(L) 3.5 - 5.2 Gram/dL 03/29/2025 4:26 AM EDT [facility] Remisol 2.0 SS Globulin, Total 3.7(H) 2.0 - 3.5 Gram/dL 03/29/2025 4:26 AM EDT [facility] Remisol 2.0 SS Total Protein 6.2(L) 6.4 - 8.9 Gram/dL 03/29/2025 4:26 AM EDT [facility] Remisol 2.0 SS A/G Ratio 0.7(L) 1.0 - 2.5 03/29/2025 4:26 AM EDT [facility] Remisol 2.0 SS ALT (SGPT) 10 <=32 Units/Lite r 03/29/2025 4:26 AM EDT [facility] Remisol 2.0 SS AST 14 13 - 39 Units/Lite r 03/29/2025 4:26 AM EDT [facility] Remisol 2.0 SS Alkaline Phosphatase 62 34 - 104 Units/Lite r 03/29/2025 4:26 AM EDT [facility] Remisol 2.0 SS Total Bilirubin 0.2(L) 0.3 - 1.0 mg/dL 03/29/2025 4:26 AM EDT [facility] Remisol 2.0 SS Bilirubin, Direct 0.1 0.1 - 0.2 mg/dL 03/29/2025 4:26 AM EDT [facility] Remisol 2.0 SS Blood Venous Draw / Unknown 03/29/2025 3:53 AM EDT 03/29/2025 3:59 AM EDT [facility] LAB - 03/29/2025 4:26 AM EDT Performed by [address] [address] [place] Non-Ulp Provider LAB BLOOD ORDERABLES Final Resu lt Performing Organization Address City/State/[facility] Co de Phone Number [facility] [address] [place] [address], [facility] CH Remisol 2.0 SS Pathology Department [address] [place] [address] * (ABNORMAL) Vancomycin, trough (03/20/2025 11:29 AM EDT) VANCOMYCIN TROUGH 8.8(L) 10.0 - 15.0 mcg/mL 03/20/2025 12:33 PM EDT [facility] Remisol 2.0 SS Blood 03/20/2025 11:2 9 AM EDT 03/20/2025 12:10 PM EDT [facility] LAB - 03/20/2025 12:33 PM EDT Performed by [facility], [address] [place] [address] Phi Caro MD LAB BLOOD ORDERABLES Final Resu lt Performing Organization Address [facility] Co de Phone Number [facility] [address] [place] [id number], [facility] Remisol 2.0 Pathology Department [address] [place] [address] * CULTURE BLOOD (03/19/2025 3:12 PM EDT) Only the most recent of3 resultswithin the time period is included. Blood 03/19/2025 3:12 PM EDT 03/19/2025 5:44 PM EDT [facility] LAB - 03/24/2025 11:01 PM EDT Patient: JENNIFER AGUILLON : 1990 Sex: Male Microbiology - Bacteriology PROCEDURE: Culture Blood [R1] COLLECTED DATE/TIME: 03/19/2025 15:12 EDT SOURCE: Blood START DATE/TIME: 03/19/2025 17:44 EDT BODY SITE: ORDERING PHYSICIAN SYSTEM, SYSTEM FREE TEXT SOURCE: FINAL REPORTS Final Report [] Verified Date/Time: 03/24/2025 23:01 EDT No growth at 5 days. Performing Locations R1: This test was performed at: [facility], Pathology Department, [address] [place] [address], [facility]- , [place], Phi Caro MD LAB BLOOD ORDERABLES Final Resu lt Performing Organization Address [facility] Co de Phone Number [facility] [address] [place] [id number], [place] * XR CHEST 1 VW PORTABLE (03/19/2025 4:07 AM EDT) Anatomical Region Laterality Modality Chest Radiographic Sunitha ging 03/19/2025 4:07 AM EDT Narrative 03/19/2025 4:08 AM EDT INDICATION: Fever. TECHNIQUE: Frontal chest was obtained at 03:44 hours. COMPARISON: Chest, single portable view obtained on 03/18/2025 at 06:24hours. CT chest 03/09/2025 (report only, imaging unavailable). FINDINGS: The cardiomediastinal silhouette is normal in size. There is stable diffuse hazy opacity throughout the left lung. This is unchanged. There is no pneumothorax. No acute osseous process. IMPRESSION: There is stable diffuse hazy opacity throughout the left lung. This is likely due to the large loculated left pleural effusion seen on the recent chest CT. Signed by Pedro Joseph MD ##### Final ##### Dictated by: PEDRO JOSEPH MD-RAD Dictated DT/TM: 03/19/2025 4:17 am Interpreted and electronically signed by: PEDRO JOSEPH MD-RAD Signed DT/TM: 03/19/2025 4:48 am Procedure Note Ortiz Joseph MD - 03/19/2025 INDICATION: Fever. TECHNIQUE: Frontal chest was obtained at 03:44 hours. COMPARISON: Chest, single portable view obtained on 03/18/2025 at06:24hours. CT chest 03/09/2025 (report only, imaging unavailable). FINDINGS: The cardiomediastinal silhouette is normal in size. There is stablediffuse hazy opacity throughout the left lung. This is unchanged. There is nopneumothorax. No acute osseous process. IMPRESSION: There is stable diffuse hazy opacity throughout the left lung. This islikely due to the large loculated left pleural effusion seen on the recent chestCT. Signed by Pedro Joseph MD ##### Final ##### Dictated by: PEDRO JOSEPH MD-RAD Dictated DT/TM: 03/19/2025 4:17 am Interpreted and electronically signed by: PEDRO JOSEPH MD-RAD Signed DT/TM: 03/19/2025 4:48 am Phi Caro MD IMG XR PROCEDURES Final Result * Lactic acid, plasma (03/19/2025 2:12 AM EDT) Lactate 1.0 0.5 - 1.9 mMole/Liter 03/19/2025 3:24 AM EDT [facility] Remisol 2.0 SS Blood 03/19/2025 2:12 AM EDT 03/19/2025 3:01 AM EDT [facility] LAB - 03/19/2025 3:24 AM EDT Performed by [facility], [address] [place] [address] Phi Caro MD LAB BLOOD ORDERABLES Final Resu lt Performing Organization Address City/[facility] Co de Phone Number [facility] [address] [place] [address], [facility] Remisol 2.0 Pathology Department [address] [place] [address] * (ABNORMAL) ZAIDA AURIS PCR (03/18/2025 6:35 PM EDT) ZAIDA AURIS PCR POSITIVE( A) Negative 03/19/2025 8:23 AM EDT SANGEETHA RANDLE Molecular SS Comment: Called VM at [facility] by gt 03/19/2025 08:23:44 EDT This test was developed and its performance characteristics determined by [facility]. It has not been cleared or approved by the [place] FDA. The FDA has determined that such clearance or approval is not necessary. This test is used for clinical purposes. It should not be regarded as investigational or for research. This laboratory is certified under the Clinical Laboratory Improvement Amendments of 1988 as qualified to perform high complexity clinical lab testing. Other 03/18/2025 6:35 PM EDT 03/18/2025 10:20 PM EDT [facility] - 03/19/2025 8:23 AM EDT Performed by [facility], [address] [place] [address] Phi Caro MD LAB BLOOD ORDERABLES Final Resu lt [facility] [address] [place] [address], [place] SANGEETHA RANDLE [facility] Pathology Department [address] [place] [id number] * CULTURE CARBAPENEM RESISTANT SCREEN (03/18/2025 6:06 PM EDT) Other 03/18/2025 6:06 PM EDT 03/18/2025 10:20 PM EDT [facility] - 03/21/2025 6:21 AM EDT Patient: JENNIFER AGUILLON : 1990 Sex: Male Microbiology - Bacteriology PROCEDURE: Culture Carbapenem Resistant Screen [R1] COLLECTED DATE/TIME: 03/18/2025 18:06 EDT SOURCE: Rectal Swab START DATE/TIME: 03/18/2025 22:20 EDT BODY SITE: ORDERING PHYSICIAN PHI CARO MD-INT FREE TEXT SOURCE: FINAL REPORTS Final Report [] Verified Date/Time: 03/21/2025 06:21 EDT No Carbapenem Resistant Organism isolated No carbapenemase producing organisms isolated Performing Locations R1: This test was performed at: [facility], Pathology Department, [address] [place] [address], [facility]- , [place], [place] Phi Caro MD LAB BLOOD ORDERABLES Final Resu lt [facility] [address] [place] [address], * Cardiology Scanned Result (03/07/2025) Anatomical Region Laterality Modality Other Narrative 03/07/2025 Ordered by an unspecified provider. us Provider Not In System CV STRESS PROCEDURES Cheryle l Result * TRANSTHORACIC ECHO (TTE) COMPLETE W CONTRAST (03/06/2025 11:45 AM EDT) Anatomical Region Laterality Modality Ultrasound 03/06/2025 11:4 5 AM EDT us Neema Mccoy MD CV ECHO PROCEDURES Final Resu lt * Surgical Pathology Report (03/01/2025 3:46 PM EDT) 03/01/2025 3:46 PM EDT [facility] - 03/01/2025 3:46 [place] [address]- Patient: JENNIFER AGUILLON : 1990 34 years Gender: Male Account: [id number] Admit: 02/10/2025 05:50 EDT Discharge: Admitting: SOPHIE BORDEN MD-INT Attending: OLESYA FELICIANO MD-INT Pathology Reports Received: 03/02/2025 08:05 EDT 03/03/2025 13:59 EDT - Auth (Verified) SPECIMEN: A Right Colon CLINICAL HISTORY: Preop diagnosis/Clinical history: Gastrocolonic fistula DIAGNOSIS: A. 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 Received in formalin labeled with the patient name JENNIFER AGUILLON MRN, and right colon is a right hemicolectomy received disrupted to includes ileum segments measuring 6.5 cm in length and 3.0 cm in diameter with a margin closed by eduard and multiple defect areas, possible ileostomy opening up to 3.5 cm, attached cecum and colon measuring 21.5 cm in length and 2.5 cm in diameter with serosal surface hemorrhagic showing multiple defect areas with irregular hemorrhagic edges with surrounding necrotic serosal surface and pericolic fat. Attached appendix measures 3.0 cm in length and 0.6 cm in diameter with atrophic wall. The average wall thickness is 0.2 -0.4 Opening reveals edematous macias-brown mucosa with hemorrhagic edges around the defects (approximately 3 defects in the posterior aspect of the colon ranging from 2.5- 5.0 cm. The defects are coming within 0.3 cm from the distal margin. Sectioning through the colonic wall reveals focal fat necrosis in the submucosa and pericolic fat. Cassette review as follows: A1: Proximal ileal margin, en face A2: Front Desk Receptionist sections of the possible ileostomy adjacent to the ileal margin A3: Colonic margin, en face A4: Appendiceal wall and bisected tip A5 -A8: Front Desk Receptionist sections of the colonic wall around the 3 defects from proximal to distal Report Request ID: [id number] 03/03/2025 13:59 EDT [place] [id number]- Patient: JENNIFER AGUILLON : 1990 34 years Gender: Male Account: [id number] Admit: 02/10/2025 05:50 EDT Discharge: Admitting: SOPHIE BORDEN MD-INT Attending: OLESYA FELICIANO MD-INT Pathology Reports Received: 03/02/2025 08:05 EDT GROSS DESCRIPTION: A9: Random business banking representative sections of the colonic wall A10: 3 possible lymph nodes JULITO Delgado, HTL (ASCP), [place], Msc Pathology.03/01/2025 D Alie/ANGEL /ANGEL DISCLAIMER: I attest that I examined the relevant preparations for the specimens and rendered the diagnosis(es). CPT: 44378 Selected block for future studies: _ Technical testing performed at [facility], [address] [place] [address] Test systems have been developed and their performance characteristics determined by the [facility] ([facility]). Some tests have not been cleared or approved by the U.S. Food and Drug Administration (FDA). The FDA has determined that such clearance or approval is not necessary. These tests are used for clinical purposes and should not be regarded as investigational or for research. This laboratory is certified under the Clinical Laboratory Improvement Amendments of 1988 (CLIA) as qualified to perform high complexity clinical laboratory testing. Unless otherwise specified, controls reacted appropriately. The microscopic evaluation in this report may have been rendered in whole, or in part, by analyzing high-resolution digital images (whole slide images) on the [employer] Pathology Platform validated at [facility]. Report Request ID: [id number] 03/03/2025 13:59 EDT Dixon Ca MD LAB PATHOLOGY ORDERABLES Final Result [facility] [address] [place] [address], * ADDENDUM REPORT (02/23/2025 5:09 PM EDT) 02/23/2025 5:09 PM EDT [facility] - 02/23/2025 5:09 [place] [address]- Patient: JENNIFER AGUILLON : 1990 34 years Gender: Male Account: [id number] Admit: 02/10/2025 05:50 EDT Discharge: 03/18/2025 14:06 EDT Admitting: SANDRA MANNING -PUL Attending: SANDRA MANNING -PUL Pathology Reports Received: 02/24/2025 08:51 EDT 03/29/2025 13:35 EDT - Auth (Verified) ADDENDUM: This addendum is created to report special staining. The original diagnosis remains unchanged. GMS special stain is performed on block A1 (with appropriate controls) and no definitive fungal organisms are identified. Electronically signed by PHONG ESTRADA Verified: 03/29/25 Signing Location: [place] [address] DISCLAIMER: CPT: _ 02/25/2025 12:37 EDT - Auth (Verified) SPECIMEN: Pseudocyst fine needle aspirate CLINICAL HISTORY: NECROTIZING PANCREATITIS SPECIMEN ADEQUACY: Satisfactory for evaluation DIAGNOSIS: Pseudocyst , fine needle aspirate (ThinPrep and a cell block): - No malignancy identified. - Abundant acute inflammation and debris. GMS special staining will be reported in an addendum. Electronically signed by PHONG ESTRADA Verified: 02/25/25 Signing Location: [facility], [address] [place] [address] Report Request ID: [id number] 03/29/2025 13:[address] [address]- Patient: JENNIFER AGUILLON : 1990 34 years Gender: Male Account: [id number] Admit: 02/10/2025 05:50 EDT Discharge: 03/18/2025 14:06 EDT Admitting: SANDRA MANNING -PUL Attending: SANDRA MANNING -PUL Pathology Reports Received: 02/24/2025 08:51 EDT GROSS DESCRIPTION: 0.5 cc of macias specimen received fresh 1 ThinPrep (pap stain) and 1 cell block (2 H&E, 4 Unstained) _ TAS/RW /RW DISCLAIMER: I attest that I examined the relevant preparations for the specimens and rendered the diagnosis(es). CPT: 09514, 59969 Selected block for future studies: _ Technical testing performed at [facility], [address] [place] [address] Test systems have been developed and their performance characteristics determined by the [facility] ([facility]). Some tests have not been cleared or approved by the U.S. Food and Drug Administration (FDA). The FDA has determined that such clearance or approval is not necessary. These tests are used for clinical purposes and should not be regarded as investigational or for research. This laboratory is certified under the Clinical Laboratory Improvement Amendments of 1988 (CLIA) as qualified to perform high complexity clinical laboratory testing. Unless otherwise specified, controls reacted appropriately. The microscopic evaluation in this report may have been rendered in whole, or in part, by analyzing high-resolution digital images (whole slide images) on the [employer] Digital Pathology Platform validated at [facility]. Report Request ID: [id number] 03/29/2025 13:35 EDT us Garrett Gonzalez MD LAB PATHOLOGY ORDERABLES Final Result [facility] [address] [place] [address], * NON-EDUCATION ADMINISTRATIVE ASSISTANT CYTOLOGY REPORT (02/23/2025 5:09 PM EDT) Only the most recent of3 resultswithin the time period is included. 02/23/2025 5:09 PM EDT [facility] - 02/23/2025 5:09 [place] [address]- Patient: JENNIFER AGUILLON : 1990 34 years Gender: Male Account: [id number] Admit: 02/10/2025 05:50 EDT Discharge: Admitting: SOPHIE BORDEN MD-INT Attending: SOPHIE BORDEN MD-INT Pathology Reports Received: 02/24/2025 08:51 EDT 02/25/2025 12:37 EDT - Auth (Verified) SPECIMEN: Pseudocyst fine needle aspirate CLINICAL HISTORY: NECROTIZING PANCREATITIS SPECIMEN ADEQUACY: Satisfactory for evaluation DIAGNOSIS: Pseudocyst , fine needle aspirate (ThinPrep and a cell block): - No malignancy identified. - Abundant acute inflammation and debris. GMS special staining will be reported in an addendum. Electronically signed by PHONG ESTRADA Verified: 02/25/25 Signing Location: [facility], [address] [place] [address] GROSS DESCRIPTION: 0.5 cc of macias specimen received fresh 1 ThinPrep (pap stain) and 1 cell block (2 H&E, 4 Unstained) _ TAS/RW /RW DISCLAIMER: I attest that I examined the relevant preparations for the specimens and rendered the diagnosis(es). CPT: 19984, 79978 Selected block for future studies: _ Technical testing performed at [facility], [address] [place] [address] Report Request ID: [id number] 02/25/2025 12:38 [place] [address]- Patient: JENNIFER AGUILLON : 1990 34 years Gender: Male Account: [id number] Admit: 02/10/2025 05:50 EDT Discharge: Admitting: SOPHIE BORDEN MD-INT Attending: BORDEN, SOPHIE B, MD-INT Pathology Reports Received: 02/24/2025 08:51 EDT DISCLAIMER: Test systems have been developed and their performance characteristics determined by the [facility] ([facility]). Some tests have not been cleared or approved by the U.S. Food and Drug Administration (FDA). The FDA has determined that such clearance or approval is not necessary. These tests are used for clinical purposes and should not be regarded as investigational or for research. This laboratory is certified under the Clinical Laboratory Improvement Amendments of 1988 (CLIA) as qualified to perform high complexity clinical laboratory testing. Unless otherwise specified, controls reacted appropriately. The microscopic evaluation in this report may have been rendered in whole, or in part, by analyzing high-resolution digital images (whole slide images) on the [employer] Pathology Platform validated at [facility]. Report Request ID: [id number] 02/25/2025 12:38 EDT Garrett Gonzalez MD LAB CYTOLOGY ORDERABLES Final Result Performing Organization Address City/State/[facility] Co de Phone Number [facility] [address] * Procedure Scanned Result (02/10/2025 9:59 AM EDT) Historical Provider IN CLINIC/BEDSIDE ORDERAB LES Edited Result - Final from Last 3 Months Insurance EXCHANGE [employer] Care Teams Realty Specialist Relationship Specialty Start Date End Date Robbie Ca MD PCP - General Family Medicine 01/21/25 Garrett Gonzalez [facility] [address] [facility] [address] [place] [address] Referring Physician Gastroenterology 03/07/25 Dixon Ca MD [address] [place] [address], [address] [place] [address] Surgeon General Surgery 04/18/25
--- OUTSIDE RECORDS SUMMARY | 2025-04-26 12:30 | XMS_ITS | Clinical Summary ---
Author Organization [facility] Address [address] [place] [address] Phone Care Team Providers Care Wood Drilling Machine Operator Name Role Phone Unavailable Unavailable Conditions or Problems No information available. Medications No information available. Medications Administered No information available. Allergies, Adverse Reactions, Alerts No information available. Results No information available. Plan of Care No information available. Procedures No information available. Vital Signs No information available. Immunizations No information available. Advance Directives No information available.
[2025-04-26 13:00] VITALS: BP 119/68; PULSE 129; RESP 21; TEMP 37.1; O2SAT 98
[2025-04-26] MEDS: 0.9 % SODIUM CHLORIDE 1000ML 1,000 ML 999 ML IV ×2 (13:00→14:00)
[2025-04-26 13:12] LABS: Hematocrit 46.3 % (42.0-52.0); Hemoglobin 15.7 g/dL (14.1-18.0); Immature Granulocytes % 1.8 %; Mean Corpuscular HGB Conc 33.9 g/dL (31.8-35.4); Mean Corpuscular Hemoglobin 28.1 pg (27.0-31.2); Mean Corpuscular Volume 83.0 fl (80-94); Nucleated Red Blood Cells % 0 %; Platelet Count 830 K/mm3 (142-424); Red Blood Count 5.58 M/mm3 (4.60-6.20); Red Cell Distribution Width-SD 41.7 fL; White Blood Count 26.6 K/mm3 (4.8-10.8)
[2025-04-26] MEDS: PROCHLORPERAZINE 10MG/2ML VIAL 10 MG IV (13:15)
[2025-04-26 13:30] VITALS: BP 118/70; PULSE 120; O2SAT 98
[2025-04-26 14:00] VITALS: BP 128/73; PULSE 108; O2SAT 99
[2025-04-26 14:33] LABS: Alanine Aminotransferase 63 U/L (12-78); Albumin Level 4.5 g/dl (3.5-5.0); Albumin/Globulin Ratio 1.0 (1.1-1.8); Alkaline Phosphatase 266 U/L (38-126); Anion Gap 29.7 mEq/L (5-15); Aspartate Amino Transferase 43 U/L (17-59); Bilirubin,Total 0.4 mg/dl (0.2-1.3); Calcium 9.0 mg/dl (8.4-10.2); Carbon Dioxide 11 mmol/L (22.0-30.0); Chloride 91 mmol/L (98-107); Creatinine,Serum 2.60 mg/dl (0.66-1.25); Estimated Glomerular Filt Rate 28 ml/min (>60); GFR (African American) 34 ML/MIN (>60); Globulin 4.5 g/dL (1.3-3.2); Glucose 150 mg/dl (74-100); Potassium 4.7 mmoL/L (3.5-5.1); Sodium 127 mmol/L (136-145); Total Protein,Serum 9.0 g/dl (6.3-8.2)
[2025-04-26 14:41] LABS: Blood Urea Nitrogen 128 mg/dl (9-20)
[2025-04-26 15:00] VITALS: BP 118/75; PULSE 93; O2SAT 98
[2025-04-26 15:00] LABS: RBC Morphology Normal; Total Cells Counted 100
== END 2025-04-26 23:59 | disposition home or self-care (01) ==
LOC: INF 12:28
PROVIDERS: PCP Family Medicine; Visit Provider Family Medicine
DX: K85.91 Acute pancreatitis with uninfected necrosis, unspecified (principal)
CPT/HCPCS: 36415; 80053; 85007; 85025; 96360; 96361; J0780; J7030

== ENCOUNTER 2025-05-04 11:10 | Outpatient (CLI) | payer OTHER, SELFPAY ==
--- OUTSIDE RECORDS SUMMARY | 2025-05-02 14:15 | XMS_ITS | Encounter Summary ---
Author Organization [facility] Address [address] [facility] [address] [place] [address] Care Team Providers Care Stock Plan Administrator Name Role Phone Robbie Ca MD Primary Care Provider [phone] Garrett Gonzalez MD Unavailable [phone] Dixon Ca MD Unavailable [phone] Reason for Referral * Imaging (Routine) - Authorized Specialty Diagnoses / Procedures Referred By Contac t Referred To Contact Diagnoses Acute pancreatitis Retroperitoneal abscess Procedures CT Abdomen Pelvis with IV contrast Dixon Ca MD [address] [facility] [place] [address] Phone: tel: fax: [facility] [address] [place] [facility] [address] [place] [address] Phone: tel: fax: Referral ID Status Reason Start Date Expiration Date Visits Requested Visits Authorized [id number] Authorized Patient Preference: Facility/Pr ovider 05/02/2025 06/01/2026 1 1 Reason for Visit * Reason Comments Post-op Gallbladder/pancreat itis. * Consultation (Routine) - Pending Review Specialty Diagnoses / Procedures Referred By Contac t Referred To Contact General Surgery Diagnoses Gallbladder problem Referral ID Status Reason Start Date Expiration Date V isits Requested Visits Authorized [id number] Pending Review 04/18/2025 05/18/2026 1 1 Encounter Details Date Type Department Care Team (Late st Contact Info) Description 05/02/2025 2:15 PM EST Office Visit [facility] [address] [place] [address] Dixon Ca MD [address] [place] [address], [address] [place] [address] Acute pancreatitis (Primary Dx); Retroperitoneal [...] Ca MD - 05/02/2025 2:15 PM EST [facility] [...] No follow-ups on file. Reyna Rosenberg MD [facility] 05/02/2025 This patient was seen with the resident physician and I am in agreement with the assessment and plan. Plan for CT A/P later this week and follow up next week to discuss. He will likely need drains rearranged, pulled, etc. He looks well. Cap g- and j-tubes, flush the latter. Mihir Ca MD documented in this encounter Plan of Treatment Scheduled Orders Name Type Priority Associated Diagnoses Orde r Schedule CT Abdomen Pelvis with IV contrast Imaging Routine Acute pancreatitis Retroperitoneal abscess Expected: 05/02/2025, Expires: 05/02/2026 documented as of this encounter Visit Diagnoses Diagnosis Acute pancreatitis- Primary Retroperitoneal abscess documented in this encounter Care Teams Stock Plan Administrator Relationship Specialty Start Date End Date Robbie Ca MD [address] [id number] PCP - General Family Medicine 01/21/25 Garrett Gonzalez MD [address] [facility] [address] [place] [address] Referring Physician Gastroenterology 03/07/25 Dixon Ca MD [address] [facility] [place] [address] Surgeon General Surgery 04/18/25 documented as of this encounter
--- OUTSIDE RECORDS SUMMARY | 2025-05-04 11:12 | XMS_ITS | Clinical Summary ---
Author Organization [facility] Address [address] [place] [address] Phone Care Team Providers Care Director Learning Name Role Phone Unavailable Unavailable Conditions or Problems No information available. Medications No information available. Medications Administered No information available. Allergies, Adverse Reactions, Alerts No information available. Results No information available. Plan of Care No information available. Procedures No information available. Vital Signs No information available. Immunizations No information available. Advance Directives No information available.
--- OUTSIDE RECORDS SUMMARY | 2025-05-04 11:13 | XMS_ITS | Encounter Summary ---
Author Organization [facility] Address [address] [place] [address] Care Team Providers Care Pie Filling Mixer Name Role Phone Robbie Ca MD Primary Care Provider [phone] Garrett Gonzalez MD Unavailable [phone] Dixon Ca MD Unavailable [phone] Reason for Visit * Reason Onset Date Comments Procedure 03/21/2025 Encounter Details Date Type Department Care Team (Late st Contact Info) Description 03/21/2025 Telephone [facility] [address] [place], [place] [id number] Garrett Gonzalez MD [address] [facility] [address] [place] [address] Procedure Social History Tobacco Use Types Packs/Day Years Used Date Smoking Tobacco: Never Assessed Sex and Gender Information Value Date Recorded Sex Assigned at Not on file Legal Sex Male 5:37 AM EDT Gender Identity Not on file Sexual Orientation Not on file documented as of this encounter Miscellaneous Notes * Telephone Encounter - Karissa Hoang - 04/18/2025 1:56 PM EDT [facility] is calling back to have patients stents removed Rasheeda from [place] [phone] * Telephone Encounter - Kathy Crain LPN - 03/23/2025 9:02 AM EDT Orders placed yesterday by provider Dalton Navarro documented in this encounter Plan of Treatment Not on file documented as of this encounter Visit Diagnoses Not on filedocumented in this encounter Care Teams Pie Filling Mixer Relationship Specialty Start Date End Date Robbie Ca MD [address] [place] [address] PCP - General Family Medicine 01/21/25 Garrett Gonzalez MD [address] [address] Referring Physician Gastroenterology 03/07/25 Dixon Ca MD [address] [place] [address], [address] [place] [address] Surgeon General Surgery 04/18/25 documented as of this encounter
--- OUTSIDE RECORDS SUMMARY | 2025-05-04 11:13 | XMS_ITS | Encounter Summary ---
Author Organization [facility] Address [address] [facility] [address] [place] [address] Care Team Providers Care Special Forces Medical Sergeant Name Role Phone Robbie Ca MD Primary Care Provider [phone] Garrett Gonzalez MD Unavailable [phone] Dixon Ca MD Unavailable [phone] Encounter Details Date Type Department Care Team (Late st Contact Info) Description 05/02/2025 Orders Only [facility] [address] [place] [address] Jimmie Louise MD [address] [place] [address], [address] [place] [address] Social History Tobacco Use Types Packs/Day Years Used Date Smoking Tobacco: Never Smokeless Tobacco: Never Alcohol Use Standard Drinks/Week Comments Never 0 (1 standard drink = 0.6 oz pur e alcohol) Sex and Gender Information Value Date Recorded Sex Assigned at Not on file Legal Sex Male 5:37 AM EDT Gender Identity Not on file Sexual Orientation Not on file documented as of this encounter Plan of Treatment Not on file documented as of this encounter Visit Diagnoses Not on filedocumented in this encounter Care Teams [employer] Medical Sergeant Relationship Specialty Start Date End Date Robbie Ca MD [address] [place] [address] PCP - General Family Medicine 01/21/25 Garrett Gonzalez MD [address] [facility] [address] [place] [address] Referring Physician Gastroenterology 03/07/25 Dixon Ca MD [address] [place] [address], [address] [place] [address] Surgeon General Surgery 04/18/25 documented as of this encounter
--- OUTSIDE RECORDS SUMMARY | 2025-05-04 11:13 | XMS_ITS | Encounter Summary ---
Author Organization [facility] Address [address] [place] [address] Care Team Providers Care Wire Frame Lampshade Maker Name Role Phone Robbie Ca MD Primary Care Provider [phone] Garrett Gonzalez MD Unavailable [phone] Dixon Ca MD Unavailable [phone] Reason for Referral * Imaging (Routine) - Closed Specialty Diagnoses / Procedures Referred By Contac t Referred To Contact Diagnoses Pancreatitis Procedures CT Abdomen Pelvis with IV contrast Jimmie Louise MD [address] [place] [address], [address] [place] [address] Phone: tel: fax: [address] Referral ID Status Reason Start Date Expiration Date V isits Requested Visits Authorized [id number] Closed [facility] 05/02/2025 06/01/2026 1 1 Encounter Details Date Type Department Care Team (Late st Contact Info) Description 05/02/2025 Orders Only [facility] [address] [facility] [address] [place] [address] Jimmie Louise MD [address] [place] [address], [address] [place] [address] Pancreatitis (Primary Dx) Social History Tobacco Use [...] as of this encounter Plan of Treatment Scheduled Orders Name Type Priority Associated Diagnoses Orde r Schedule CT Abdomen Pelvis with IV contrast Imaging Routine Pancreatitis Expected: 05/02/2025 (Approximate), Expires: 05/02/2026 documented as of this encounter Visit Diagnoses Diagnosis Pancreatitis- Primary documented in this encounter Care Teams Wire Frame Lampshade Maker Relationship Specialty Start Date End Date Robbie Ca MD [address] [place] [address] PCP - General Family Medicine 01/21/25 Garrett Gonzalez MD [address] [address] Referring Physician Gastroenterology 03/07/25 Dixon Ca MD [address] [place] [address], [address] [place] [address] Surgeon General Surgery 04/18/25 documented as of this encounter
--- OUTSIDE RECORDS SUMMARY | 2025-05-04 11:13 | XMS_ITS | Encounter Summary ---
Author Organization [facility] Address [address] [place] [address] Care Team Providers Care Concrete Inspector Name Role Phone Robbie Ca MD Primary Care Provider + [phone] Garrett Gonzalez MD Unavailable [phone] Dixon Ca MD Unavailable [phone] Encounter Details Date Type Department Care Team (Latest Contact Info) Description 04/29/2025 Travel Social History Tobacco Use Types Packs/Day Years Used Date Smoking Tobacco: Never Assessed Smokeless Tobacco: Never Alcohol Use Standard Drinks/Week [...] on filedocumented in this encounter Care Teams Concrete Inspector Relationship Specialty Start Date End Date Robbie Ca MD [address] [place] [address] PCP - General Family Medicine 01/21/25 Garrett Gonzalez MD [address] [facility] [address] [place] [address] Referring Physician Gastroenterology 03/07/25 Dixon Ca MD [address] [place] [address], [address] [place] [address] Surgeon General Surgery 04/18/25 documented as of this encounter
--- OUTSIDE RECORDS SUMMARY | 2025-05-04 11:13 | XMS_ITS | Encounter Summary ---
Author Organization [facility] Address [address] [facility] [address] [place] [address] Care Team Providers Care Scouring Pads Supervisor Name Role Phone Robbie Ca MD Primary Care Provider [phone] Garrett Gonzalez MD Unavailable [phone] Reason for Referral * Consultation (Routine) - Closed Specialty Diagnoses / Procedures Referred By Contac t Referred To Contact Diagnoses Acute necrotizing pancreatitis Procedures ERCP Dalton Navarro PA [address] [facility] [address] [place] [address] Phone: tel: fax: [address] [address] Referral ID Status Reason Start Date Expiration Date V isits Requested Visits Authorized [id number] Closed [facility] 03/22/2025 04/21/2026 1 1 * Consultation (Routine) - Closed Specialty Diagnoses / Procedures Referred By Contac t Referred To Contact Diagnoses Acute necrotizing pancreatitis Procedures Endoscopic ultrasonography (Upper) Dalton Navarro PA [address] [facility] [address] [place] [address] Phone: tel: fax: [address] [phone] Referral ID Status Reason Start Date Expiration Date V isits Requested Visits Authorized [id number] [facility] 03/22/2025 04/21/2026 1 1 Encounter Details Date Type Department Care Team (Latest Contact Info) Description 03/22/2025 Orders Only [facility] [address] [place] [address] Dalton Navarro PA [address] [place] [address] Acute necrotizing pancreatitis (Primary Dx) Social History [...] Primary documented in this encounter Care Teams Scouring Pads Supervisor Relationship Specialty Start Date End Date Robbie Ca MD [address] [place] [address] PCP - General Family Medicine 01/21/25 Garrett Gonzalez MD [address] [facility] [address] [place] [address] Referring Physician Gastroenterology 03/07/25 documented as of this encounter
--- OUTSIDE RECORDS SUMMARY | 2025-05-04 11:13 | XMS_ITS | Encounter Summary ---
Author Organization [facility] Address [address] [facility] [address] [place] [address] Care Team Providers Care Client Coordinator Name Role Phone Robbie Ca MD Primary Care Provider + [phone] Garrett Gonzalez MD Unavailable [phone] Dixon Ca MD Unavailable [phone] Encounter Details Date Type Department Care Team (Latest Contact Info) Description 05/02/2025 Travel Social History Tobacco Use Types Packs/Day [...] on filedocumented in this encounter Care Teams Client Coordinator Relationship Specialty Start Date End Date Robbie Ca MD [address] [place] [address] PCP - General Family Medicine 01/21/25 Garrett Gonzalez MD [address] [facility] [address] [place] [address] Referring Physician Gastroenterology 03/07/25 Dixon Ca MD [address] [place] [address], [address] [place] [address] Surgeon General Surgery 04/18/25 documented as of this encounter
--- OUTSIDE RECORDS SUMMARY | 2025-05-04 11:13 | XMS_ITS | Clinical Summary ---
Author Organization [facility] Address [address] [place] [address] Care Team Providers Care Steel Fixer Name Role Phone Robbie Ca MD Primary Care Provider [phone] Garrett Gonzalez MD Unavailable [phone] Dixon aC MD Unavailable [phone] Allergies Active Allergy Reactions Criticality Noted Date Comments Meropenem Rash Low 02/09/2025 Oxycodone Vomiting 02/17/2025 Penicillins Hives,Other,Rash Low 09/21/2024 Has tolerated cefazolin, ceftriaxone Most patients no longer allergic to penicillin after ~10 years Beta lactam allergy details Antibiotic reaction: rash Age at reaction: child Dose to reaction time: unknown Reason for antibiotic: unknown Epinephrine required for reaction?: unknown Tolerated antibiotics: cefazolin, ceftriaxone Sulfa Antibiotics Hives,Rash Low 12/19/2024 Medications No known medications Encounters Date Type Department Care Team Description 05/02/2025 2:15 PM EST Office Visit [facility] [address] [place], [place] [id number] Dixon Ca MD Acute pancreatitis (Primary Dx); Retroperitoneal abscess 05/02/2025 Travel 05/02/2025 Orders Only [facility] [address] [place] [address] Jimmie Louise MD Pancreatitis (Primary Dx) 05/02/2025 Orders Only [facility] [address] [facility] [address] [place] [id number] Jimmie Louise MD 05/02/2025 Telephone [facility] Administrative [facility] [address] [place] [id number] Katia Carranza RN Hospital Follow Up 04/29/2025 Travel 04/18/2025 Orders Only [facility] [address] [place] [address] Dalton Navarro PA Pancreatitis (Primary Dx) 03/22/2025 Orders Only [facility] [address] [place] [address] aDlton Navarro PA Acute necrotizing pancreatitis (Primary Dx) 03/21/2025 Telephone [facility] [address] [facility] [address] [place] [address] Garrett Gonzalez MD Procedure 03/07/2025 Orders Only [facility] [address] [place] [phone] Provider, MD Thor from Last 3 Months Social History Tobacco [...] Orientation Not on file Plan of Treatment Health Maintenance Due Date [...] Procedure Name Priority Date/Time Associated Diagnosis Comments ERCP 04/28/2025 3:[address] ABDOMEN PELVIS W CONTRAST 04/27/2025 12:41 PM EST LIPASE STAT 04/27/2025 11:38 AM EST CMP COMPREHENSIVE METABOLIC PANEL STAT 04/27/2025 11:38 AM EST LACTIC ACID, PLASMA STAT 04/27/2025 1 1:38 AM EST AUTODIFF STAT 04/27/2025 11:38 AM EST CBC AND DIFFERENTIAL STAT 04/27/2025 11:38 AM EST PHOSPHORUS Early AM 04/20/2025 3:47 AM EDT [...] ADDENDUM REPORT Routine 02/23/2025 5:09 PM EDT NON-TEXTILES PRINTER CYTOLOGY REPORT Routine 02/23/2025 5:09 PM EDT NON-TEXTILES PRINTER CYTOLOGY REPORT Routine 02/22/2025 12:15 PM EDT NON-TEXTILES PRINTER CYTOLOGY REPORT Routine 02/16/2025 10:21 AM EDT PROCEDURE SCANNED RESULT Routine 02/10/2025 9:59 AM EDT from Last 3 Months Results * ERCP (04/28/2025 3:10 PM EST) Anatomical Region Laterality Modality Endoscopy Narrative Procedure Note Jimmie Louise MD - 04/28/2025 3:10 PM EST Patient: JENNIFER AGUILLON Age: 34 years Sex: Male : 1990 Associated Diagnoses: None Author: JIMMIE LOUISE MD-GAE Procedure: ERCP - Endoscopic Retrograde Cholangio-Pancreatography The Attending Physician was present throughout the entire procedure. 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 -Plan for EGD w/ Necrosectomy, drain removal on the right side, and ERCPwith stent removal/assessment of the bile duct. PHYSICIAN(S): -Dr. Jimmie Louise-Attending MEDICATION(S): Moderate Sedation was provided under the Direction,Supervision, and Monitoring of the endoscopist: No. -General Anesthesia PROCEDURE: Prior to the procedure, a history and physical was performed (seePre-Endoscopy Brief H&P and/or Consult + progress notes). The patient's medications and allergies were reviewed: Yes. The patient was competent: Yes. The risks, alternative options and benefits of the procedure as well as ofthe sedation were discussed with the: patient. All questions were answered and informed consent was obtained: Yes (seeseparate document). The risk for adverse events was assessed and potential benefits wereconsidered to exceed the risks: Yes. Antibiotic Prophylaxis: not indicated. The decision plan was to use: MAC anesthesia. Time out with identification of the patient and of the proposedprocedure were verified by the nurse (, nurse auto detailer) and physicianendoscopist in the Endoscopy Suite. The duct of interest is: Biliary. Photo-documentation was obtained: Yes. The procedure was interrupted or terminated due to sedation issues: No. Sedation reversal agents were used: No. Immediate or delayed adverse events: None. MENTAL STATUS EXAMINATION: Alert and oriented. AIRWAY EXAM: Normal. CARDIOVASCULAR: Normal. RESPIRATORY: Normal. The patient was on no previous anticoagulants or anti-platelets. Anticoagulant/anti-platelet agents were held to facilitate high risktherapeutic interventions: Not applicable. ASA-GRADE ASSESSMENT: 3 DESCRIPTION OF PROCEDURE(S): After review of the risks and benefits, thepatient was deemed in satisfactory condition to undergo the procedure.Immediately prior to the procedure, the patient was reassessed foradequacy of the received sedation. The patient's heart rate, respiratoryrate, oxygen saturation, blood pressure, adequacy of pulmonary ventilationresponse to care were monitored throughout the entire procedure. Thephysical status of the patient was reassessed after the procedure. The scope was passed under direct vision. The endoscope was introducedthrough the mouth and advanced to the second part of the duodenum. Theupper GI endoscopy was accomplished without difficulty. The patient tolerated the procedure well: Yes. ENDOSCOPY FINDING(S): Esophagus: - LA Grade D esophagitis. Stomach: - AXIOS stent in place with necrosis clogging the stent. Duodenum: - Congested and compressed ERCP FINDINGS: Full informed consent was obtained. Therapeutic duodenoscope wasintroduced into the oropharynx and advanced under vision. Second duodenumwas intubated. Ampulla brought into view. At the end of the procedure theEndoscope was withdrawn after suctioning the stomach. Ampulla Major: -Pt required a left lateral tilt in semi prone position to reach theampulla. We used a rat tooth and removed the biliary stent with ease. -We then advanced a 12-15mm extraction balloon into the bile duct.Multiple sweeps performed with removal of mild to moderate sludge/debris,typical findings. -Once the bile duct was clean we performed an occlusion cholangiogram. Nondilated intrahepatics. The main bile duct was 10mm. No stricturespalpated. The balloon swept through the bile duct with ease. No new stentswere placed. All stents removed. Additional Interventions: Fluoroscopy Time: See report Estimated Blood Loss: 0 mL. RECOMMENDATION(S): -Successful ERCP -All stents removed -Necrosectomy accomplished today with complete removal -We then removed 2 drains on the right side, CT scan showing no longerdraining anything and did not want to continue risking fistulization. -Drain on the left side kept in place since it is still draining a pocketof fluid. Will monitor the output. We may ask IR to re-evaluate thisdrain, will repeat a CT in a few days to see if this is getting better -I am hopeful in 6-12 months his inflammation will decrease. I thinkremoval of that large piece of necrotic tissue will help him tremendouslyafter today. -Okay for CLD diet today, advance as tolerated tomorrow Electronically Signed on04/28/2025 15:14 EST JIMMIE LOUISE MD-RADHA Jimmie Louise MD ENDOSCOPY PROCEDURE ORDERABLES F inal Result * CT Abdomen Pelvis with IV contrast (04/27/2025 12:41 PM EST) Only the most recent of2 resultswithin the time period is included. Anatomical Region Laterality Modality Body, Pelvis, Abdomen Computed T omography 04/27/2025 12:4 1 PM EST Narrative 04/27/2025 1:52 PM EST EXAM: CT Abdomen and pelvis INDICATION: Pancreatitis. [...] tip in the duodenum and proximal tip coiled in the left hepatic bile ducts. Small amount of pneumobilia. Pancreas: The pancreas enhances homogeneously. There is a air-fluid collection between the pancreas and posterior gastric wall measuring 4.7 x 3.2 [...] cm, slightly smaller than on prior exam. This collection extends into the posterior abdominal wall soft tissues to the skin. This collection also extends more inferiorly into the left anterior pelvis. [...] significant osseous, articular or soft tissue abnormalities. IMPRESSION: 1. Acute pancreatitis with an air-fluid collection [...] is a second right percutaneous drainage catheter extending into the right pelvis with no surrounding fluid collection 4. No bowel obstruction 5. Diffuse mesenteric edema 6. Biliary stent in place with small amount of pneumobilia 7. Gastrostomy tube and jejunostomy tube Dictated by: Surinder Gonzalez M.D. Signed by Surinder Gonzalez M.D. on 04/27/2025 13:50 ##### Final ##### Dictated by: SURINDER GONZALEZ MD-RAD Dictated DT/TM: 04/27/2025 1:50 pm Interpreted and electronically signed by: SURINDER GONZALEZ MD-RAD Signed DT/TM: 04/27/2025 1:50 pm Procedure Note Surinder Gonzalez MD - 04/27/2025 EXAM: CT Abdomen and pelvis INDICATION: Pancreatitis. Drain placement. Increasing pain and vomiting. Comparison Exams:04/11/2025 Technique: Images of the abdomen and pelvis were obtained Without IVcontrast Contrast: Isovue 370 Amount of contrast: 100 mL Enteric contrast: None FINDINGS: LOWER CHEST: Visualized heart, lungs and pleura are unremarkable. ABDOMEN: Hepatic: Subcentimeter hypodensity in the right hepatic lobe consistentwith a small cyst. Biliary: There is an internal biliary drain with distal tip in theduodenum and proximal tip coiled in the left hepatic bile ducts. Smallamount of pneumobilia. Pancreas: The pancreas enhances homogeneously. There is a air-fluidcollection between the pancreas and posterior gastric wall measuring 4.7 x3.2 cm, previously 4.3 x 2.6 cm. Within this collection there is an Axiosstent and through the stent a drainage catheter Spleen: Spleen is normal in size and density. No focal masses. Adrenals: Both adrenals are normal in size, morphology and density. Nofocal masses. Kidneys and ureters: Both kidneys are normal in size. No nephrolithiasisor hydronephrosis. No focal mass. Retroperitoneum: In the left posterior pararenal space there is apercutaneous pigtail drainage catheter with an air-fluid collectionmeasuring 3.8 x 8.3 cm, slightly smaller than on prior exam. Thiscollection extends into the posterior abdominal wall soft tissues to theskin. This collection also extends more inferiorly into the left anteriorpelvis. In the right posterior pararenal space is another percutaneousdrainage catheter with minimal surrounding air and fluid measuring 2.3 x2.0 cm, decreased in size. There is a third right percutaneous drainagecatheter extending into the right hemipelvis with no surrounding fluid. Distal esophagus, stomach and duodenum: Gastrostomy tube in place. Thereis a percutaneous jejunostomy tube in place. Bowel and mesentery: Diffuse mesenteric edema. No significant large orsmall bowel dilation. PELVIS: Bladder: The urinary bladder is normal for degree of distention. Reproductive organs: Prostate, seminal vesicles and scrota are normal.. Extraperitoneal: Major vessels are normal. No lymphadenopathy ormasses. Osseous and soft tissues: No acute or significant osseous, articular orsoft tissue abnormalities. IMPRESSION: 1. Acute pancreatitis with an air-fluid collection between the pancreasand the stomach measuring 4.7 x 3.2 cm, slightly larger than on priorexam. Within this collection is an Axios stent and through the Axios stenta second stent has been placed. 2. Left posterior pararenal space air-fluid collection with apercutaneous drainage catheter in place. This collection measures 4.7 x3.2 cm and extends posteriorly to the skin and inferiorly into thepelvis 3. Right retroperitoneal air-fluid collection, small in size and notsignificantly changed with an internal pigtail drainage catheter. There philippe second right percutaneous drainage catheter extending into the rightpelvis with no surrounding fluid collection 4. No bowel obstruction 5. Diffuse mesenteric edema 6. Biliary stent in place with small amount of pneumobilia 7. Gastrostomy tube and jejunostomy tube Dictated by: Surinder Gonzalez M.D. Signed by Surinder Gonzalez M.D. on 513:50 ##### Final ##### Dictated by: SURINDER GONZALEZ MD-RAD Dictated DT/TM: 04/27/2025 1:50 pm Interpreted and electronically signed by: SURINDER GONZALEZ MD-RAD Signed DT/TM: 04/27/2025 1:50 pm Cheri Iverson MD IMG CT PROCEDURES Final Result * (ABNORMAL) AUTODIFF (04/27/2025 11:38 AM EST) Only the most recent of32 resultswithin the time period is included. NEUT % 88.2(H) 34.0 - 75.0 % 04/27/2025 11:48 AM EST [facility] Heme Coag UA SS LYMPH % 6.8(L) 17.0 - 53.0 % 04/27/2025 11:48 AM EST [facility] Heme Coag UA SS MONO % 3.9 2.0 - 12.0 % 04/27/2025 11:48 AM EST [facility] Heme Coag UA SS EOS % 0.3 0.0 - 7.0 % 04/27/2025 11:48 AM EST [facility] Heme Coag UA SS BASO % 0.8 0.0 - 3.0 % 04/27/2025 11:48 AM EST [facility] Heme Coag UA SS NEUT # 18.2(H) 1.5 - 7.1 x10(3)/ul 04/27/2025 11:48 AM EST [facility] Heme Coag UA SS LYMPH # 1.4 1.0 - 3.5 x10(3)/ul 04/27/2025 11:48 AM EST [facility] Heme Coag UA SS MONO # 0.8 0.0 - 1.0 x10(3)/ul 04/27/2025 11:48 AM EST [facility] Heme Coag UA SS EOS # 0.1 0.0 - 0.7 x10(3)/ul 04/27/2025 11:48 AM EST [facility] Heme Coag UA SS BASO # 0.2 0.0 - 0.3 x10(3)/ul 04/27/2025 11:48 AM EST [facility] Heme Coag UA SS Blood 04/27/2025 11:3 8 AM EST 04/27/2025 11:44 AM EST [facility] - 04/27/2025 11:48 AM EST labs, ct, ortho Ordered by Discern Expert. Performed by [facility], [address] [place] [address] us Cheri Iverson MD LAB BLOOD ORDERABLES Final Resu lt [facility] [address] [place] [address], [facility] Heme Coag UA SS Pathology Department [address] [place] [address] * (ABNORMAL) CBC With Differential (04/27/2025 11:38 AM EST) Only the most recent of32 resultswithin the time period is included. WBC 20.6(H) 4.0 - 10.8 x10(3)/ul 04/27/2025 11:48 AM EST [facility] Heme Coag UA SS RBC 5.13 4.37 - 5.74 x10(6)/ul 04/27/2025 11:48 AM EST [facility] Heme Coag UA SS HGB 14.5 13.0 - 17.5 Gram/dL 04/27/2025 11:48 AM EST [facility] Heme Coag UA SS Hematocrit 42.8 38.0 - 51.0 % 04/27/2025 11:48 AM EST [facility] Heme Coag UA SS MCV 83.5 79.0 - 92.2 fL 04/27/2025 11:48 AM EST [facility] Heme Coag UA SS MCH 28.2 25.6 - 32.2 pg 04/27/2025 11:48 AM EST [facility] Heme Coag UA SS MCHC 33.8 32.3 - 36.5 Gram/dL 04/27/2025 11:48 AM EST [facility] Heme Coag UA SS RDW 15.1 11.0 - 15.5 % 04/27/2025 11:48 AM EST [facility] Heme Coag UA SS Platelets 649(H) 140 - 420 x10(3)/ul 04/27/2025 11:48 AM EST [facility] Heme Coag UA SS MPV 7.5 6.5 - 12.0 fL 04/27/2025 11:48 AM EST [facility] Heme Coag UA SS SLIDE REVIEW NONE 04/27/2025 11:48 AM EST [facility] CH Remisol 2.0 SS Blood 04/27/2025 11:3 8 AM EST 04/27/2025 11:44 AM EST [facility] - 04/27/2025 11:48 AM EST labs, ct, ortho [place] [address] us Cheri Iverson MD LAB BLOOD ORDERABLES Final Resu lt Performing Organization Address City/State/[facility] [place] [address], [facility] Heme Coag UA SS Pathology Department [address] [place] [address] CH Remisol 2.0 SS Pathology Department [address] [place] [address] * Lipase (04/27/2025 11:38 AM EST) Lipase 46 11 - 82 Units/Liter 04/27/2025 12:19 PM EST [facility] CH Remisol 2.0 SS Blood 04/27/2025 11:3 8 AM EST 04/27/2025 11:44 AM EST [facility] - 04/27/2025 12:19 PM EST labs, ct, ortho Performed by [address] [place] [address] Cheri Iverson MD LAB BLOOD ORDERABLES Final Resu lt Performing Organization Address [email or web address]] de Phone Number [facility] [address] [place] [address], [facility] CH Remisol 2.0 SS Pathology Department [address] [place] [address] * Lactic acid, plasma (04/27/2025 11:38 AM EST) Only the most recent of2 resultswithin the time period is included. Pathologist [facility] Lactate 1.5 0.5 - 1.9 mMole/Liter 04/27/2025 12:08 PM EST [facility] CH Remisol 2.0 SS Blood 04/27/2025 11:3 8 AM EST 04/27/2025 11:44 AM EST [facility] - 04/27/2025 12:08 PM EST labs, ct, ortho [place] [address] Cheri Iverson MD LAB BLOOD ORDERABLES Final Resu lt Performing Organization Address [facility] de Phone Number [facility] [address] [place] [address], [facility] CH Remisol 2.0 SS Pathology Department [address] [place] [address] * (ABNORMAL) Comprehensive metabolic panel (04/27/2025 11:38 AM EST) Only the most recent of3 resultswithin the time period is included. Sodium 123(A) 136 - 145 mmol/L 04/27/2025 12:19 PM EST [facility] CH Remisol 2.0 SS Comment:Critical Result S_NA of 123 Called to and read back by: LAURY REARDON at: 04/27/2025 12:19:45 by:HALIE Potassium 4.0 3.5 - 5.1 mmol/L 04/27/2025 12:19 PM EST [facility] CH Remisol 2.0 SS Chloride 88(L) 98 - 110 mmol/L 04/27/2025 12:19 PM EST [facility] CH Remisol 2.0 SS CO2 19(L) 21 - 31 mmol/L 04/27/2025 12:19 PM EST [facility] CH Remisol 2.0 SS Comment:LDH (LD) levels abov e 2000 U/L will result in a positive bias on the CO2 (bicarbonate) level. Please interpret with caution. Anion Gap 16.0(H) 2.0 - 11.0 04/27/2025 12:19 PM EST [facility] CH Remisol 2.0 SS Calcium 10.1 8.6 - 10.2 mg/dL 04/27/2025 12:19 PM EST [facility] CH Remisol 2.0 SS Glucose 101 74 - 109 mg/dL 04/27/2025 12:19 PM EST [facility] CH Remisol 2.0 SS BUN 120(H) 7 - 25 mg/dL 04/27/2025 12:19 PM EST [facility] CH Remisol 2.0 SS Creatinine 2.08(H) 0.70 - 1.30 mg/dL 04/27/2025 12:19 PM EST [facility] CH Remisol 2.0 SS BUN/Creatinine Ratio 57.7(H) 6.0 - 22.0 04/27/2025 12:19 PM EST [facility] CH Remisol 2.0 SS Albumin 4.4 3.5 - 5.2 Gram/dL 04/27/2025 12:19 PM EST [facility] CH Remisol 2.0 SS Total Protein 9.6(H) 6.4 - 8.9 Gram/dL 04/27/2025 12:19 PM EST [facility] CH Remisol 2.0 SS A/G Ratio 0.8(L) 1.0 - 2.5 04/27/2025 12:19 PM EST [facility] CH Remisol 2.0 SS Alkaline Phosphatase 317(H) 34 - 104 Units/Lite r 04/27/2025 12:19 PM EST [facility] CH Remisol 2.0 SS ALT (SGPT) 117(H) <=32 Units/Lite r 04/27/2025 12:19 PM EST [facility] CH Remisol 2.0 SS AST 63(H) 13 - 39 Units/Lite r 04/27/2025 12:19 PM EST [facility] CH Remisol 2.0 SS Total Bilirubin 0.4 0.3 - 1.0 mg/dL 04/27/2025 12:19 PM EST L CH Remisol 2.0 SS Globulin, Total 5.2(H) 2.0 - 3.5 Gram/dL 04/27/2025 12:19 PM EST [facility] CH Remisol 2.0 SS EGFR 42(L) >=60 mL/min/1.7 3m2 04/27/2025 12:19 PM EST [facility] CH Remisol 2.0 SS Comment:eGFR calculation per formed using the CKD-EPI 2020 equation (race variable excluded) Blood 04/27/2025 11:3 8 AM EST 04/27/2025 11:44 AM EST [facility] - 04/27/2025 12:20 PM EST labs, ct, ortho [place] [address] us Cheri Iverson MD LAB BLOOD ORDERABLES Final Resu lt Performing Organization Address [facility] [[email or web address]] [place] [address], [facility] CH Remisol 2.0 SS Pathology Department [address] [place] [address] * (ABNORMAL) Phosphorus (04/20/2025 3:47 AM EDT) Only the most recent of29 resultswithin the time period is included. Phosphorus 5.7(H) 2.5 - 5.0 mg/dL 04/20/2025 4:23 AM EDT [facility] CH Remisol 2.0 SS Blood 04/20/2025 3:47 AM EDT 04/20/2025 3:56 AM EDT [facility] - 04/20/2025 4:23 AM EDT Performed by [facility], [address] [place] [address] Ivon Rucker MD LAB BLOOD ORDERABLES Final Resul t Performing Organization Address [facility] Co de Phone Number [facility] [address] [place] [address], [facility] CH Remisol 2.0 SS Pathology Department [address] [place] [address] * (ABNORMAL) Magnesium (04/20/2025 3:47 AM EDT) Only the most recent of30 resultswithin the time period is included. Magnesium 1.7(L) 1.9 - 2.7 mg/dL 04/20/2025 4:23 AM EDT [facility] Remisol 2.0 SS Blood 04/20/2025 3:47 AM EDT 04/20/2025 3:56 AM EDT [facility] - 04/20/2025 4:23 AM EDT Performed by [facility], [address] [place] [address] Ivon Rucker MD LAB BLOOD ORDERABLES Final Resul t Performing Organization Address City/State/[facility] Co de Phone Number [facility] [address] [place] [address], [facility] Remisol 2.0 SS Pathology Department [address] [place] [address] * (ABNORMAL) Basic Metabolic Panel (04/20/2025 3:47 AM EDT) Only the most recent of30 resultswithin the time period is included. Glucose 118(H) 74 - 109 mg/dL 04/20/2025 4:23 AM EDT [facility] CH Remisol 2.0 SS BUN 21 7 - 25 mg/dL 04/20/2025 4:23 AM EDT [facility] CH Remisol 2.0 SS Creatinine 0.62(L) 0.70 - 1.30 mg/dL 04/20/2025 4:23 AM EDT [facility] CH Remisol 2.0 SS Sodium 130(L) 136 - 145 mmol/L 04/20/2025 4:23 AM EDT [facility] CH Remisol 2.0 SS Potassium 4.2 3.5 - 5.1 mmol/L 04/20/2025 4:23 AM EDT [facility] CH Remisol 2.0 SS Chloride 97(L) 98 - 110 mmol/L 04/20/2025 4:23 AM EDT [facility] CH Remisol 2.0 SS CO2 25 21 - 31 mmol/L 04/20/2025 4:23 AM EDT [facility] CH Remisol 2.0 SS Comment:LDH (LD) levels abov e 2000 U/L will result in a positive bias on the CO2 (bicarbonate) level. Please interpret with caution. Anion Gap 8.0 2.0 - 11.0 04/20/2025 4:23 AM EDT [facility] CH Remisol 2.0 SS Calcium 9.3 8.6 - 10.2 mg/dL 04/20/2025 4:23 AM EDT [facility] CH Remisol 2.0 SS BUN/Creatinine Ratio 33.9(H) 6.0 - 22.0 04/20/2025 4:23 AM EDT [facility] CH Remisol 2.0 SS EGFR 128 >=60 mL/min/1.7 3m2 04/20/2025 4:23 AM EDT [facility] CH Remisol 2.0 SS Comment:eGFR calculation per formed using the CKD-EPI 2020 equation (race variable excluded) Blood 04/20/2025 3:47 AM EDT 04/20/2025 3:56 AM EDT [facility] - 04/20/2025 4:23 AM EDT Performed by [address] [address] us Non-Ulp Provider LAB BLOOD ORDERABLES Final Resu lt Performing Organization Address City/State/[facility] Co de Phone Number [facility] [address] [place] [address], [facility] CH Remisol 2.0 SS Pathology Department [address] [place] [address] * CULTURE BODY FLUID AND STAIN (04/12/2025 3:31 PM EDT) Other Abdominal wall / Unknown 04/12/2025 3:31 PM EDT 04/12/2025 5:59 PM EDT [facility] - 04/17/2025 3:03 PM EDT [...] Locations R1: This test was performed at: [facility], Pathology Department, [address] [place] [address], [facility] , , Enrique Barr MD LAB BLOOD ORDERABLES Cheryle l Result [facility] [address] [place] [address], * CT DRAINAGE PERITONEAL (04/12/2025 2:49 PM [...] DT/TM: 04/13/2025 2:52 am Ekaterina Mohan MD [facility] CT PROCEDURES Final Result * (ABNORMAL) PT/INR PROTHROMBIN TIME PTT (04/12/2025 1:03 PM EDT) Only the most recent of2 resultswithin the time period is included. PT 13.8(H) 10.2 - 12.9 Second 04/12/2025 1:53 PM EDT [facility] Heme Coag UA INR 1.2 04/12/2025 1:53 PM EDT [facility] Heme Coag UA Comment: Recommended INR range for Oral Anticoagulant Therapy : STANDARD: 2.0 - 3.0 HIGH: 3.0 - 4.5 NOTE: Recommended range will be different for patients with mechanical implants. PTT 28.9 26.6 - 35.9 Second 04/12/2025 1:53 PM EDT [facility] Heme Coag UA Comment:Heparin therapeutic range is 55-95 sec. When the PTT is> 95 sec, if on heparin, refer to heparin protocol. If not on heparin, recommend appropriate workup. Blood 04/12/2025 1:03 PM EDT 04/12/2025 1:14 PM EDT Narrative [facility] - 04/12/2025 1:53 PM EDT [place] [address] Enrique Barr MD LAB BLOOD ORDERABLES Cheryle l Result Performing Organization Address City/State/[facility] Co de Phone Number [facility] [address] [place] [address], [facility] Heme Coag UA Pathology Department [address] [place] [address] * CT Abdomen Pelvis without IV contrast (04/11/2025 6:37 PM EDT) Anatomical Region Laterality Modality Body, Pelvis, Abdomen Computed T omography 04/11/2025 6:37 PM EDT Narrative 04/11/2025 6:47 PM EDT ACCESSION NUMBER: [id number] DATE: 04/11/2025 18:37 EXAMINATION: CT Abdomen Pelvis [...] Paul Shay MD - 04/12/2025 ACCESSION NUMBER: [id number] DATE: 04/11/2025 18:37 EXAMINATION: CT Abdomen Pelvis [...] SHAY MD-RAD Signed DT/TM: 04/12/2025 7:49 am us Hudson Brown MD IMG CT PROCEDURES Final Result * XA Abscess Drain Peritoneal (04/02/2025 12:20 PM EDT) Anatomical Region Laterality Modality X-Ray Angiograph y 04/02/2025 12:2 0 PM EDT Narrative 04/02/2025 2:09 PM EDT ACCESSION NUMBER: [id number] EXAMINATION: XA Abscess Drain Peritoneal PROCEDURE: 1. [...] exchange and repositioning with a new 20 Lebanese nonlocking pigtail drainage catheter. A total of 200 cc of necrotic fluid were aspirated. 3. Fluoroscopic guided RIGHT retroperitoneal drainage catheter exchange and repositioning with a new 14 Lebanese locking biliary pigtail drainage catheter. A total [...] made with a #11 scalpel. A 5 Lebanese 19-gauge Yueh catheter/needle was then directed via [...] 0.035 inch Glidewire. Following this, a 4 Lebanese Kumpe catheter was advanced over the wire, and the wire was repositioned more superior in the left upper quadrant. The catheter was then exchanged for a new 20 Lebanese nonlocking loop drainage catheter. The wire was [...] Internal catheter securement: Locking loop Catheter placed: [employer] Quick Catheter size (Lebanese): 20 Fluid type: Necrotic fluid Total volume [...] 0.035 inch Glidewire. Following this, a 4 Lebanese Kumpe catheter was advanced over the wire, and the wire was repositioned more superior in the right upper quadrant. The catheter was then exchanged for a new 14 Lebanese biliary type drainage catheter with extra proximal [...] Internal catheter securement: Locking loop Catheter placed: Cook Biliary Catheter size (Lebanese): 14 Fluid type: Necrotic fluid Total volume [...] as written. Omar Trujillo MD, MBA, RPVI food cooking machine operator Division of Vascular and Interventional Radiology Department of Radiology [address] [place] [address] Dictated by: Omar Trujillo MD, MBA Signed by Omar Trujillo MD, MBA on 04/02/2025 14:37 ##### Final ##### Dictated by: OMAR TRUJILLO MD-RAD Dictated DT/TM: 04/02/2025 2:37 pm Interpreted and electronically signed by: OMAR TRUJILLO MD-RAD Signed DT/TM: 04/02/2025 2:37 pm Procedure Note Omar Trujillo MD - 04/02/2025 ACCESSION NUMBER: [id number] EXAMINATION: XA Abscess Drain Peritoneal PROCEDURE: 1. [...] catheter exchange andrepositioning with a new 20 Lebanese nonlocking pigtail drainage catheter. Atotal of 200 cc of necrotic fluid were aspirated. 3. Fluoroscopic guided RIGHT retroperitoneal drainage catheter exchangeand repositioning with a new 14 Lebanese locking biliary pigtail drainagecatheter. A total of [...] witnessed. [facility] [...] made with a #11 scalpel. A 5 Lebanese 19-gauge Yueh catheter/needlewas then directed via an [...] a 0.035 inch Glidewire.Following this, a 4 Lebanese Kumpe catheter was advanced over the wire, andthe wire was repositioned more superior in the left upper quadrant. Thecatheter was then exchanged for a new 20 Lebanese nonlocking loop drainagecatheter. The wire was removed and the pigtail was performed. Briefcontrast injection was then performed to confirm catheter tip placement.Then, approximately 200 cc of thick necrotic fluid were aspirated. Thecatheter was sutured into place with nonabsorbable suture. A steriledressing was placed, and the catheter was connected to negative pressuredrainage. Access route: Percutaneous Internal catheter securement: Locking loop Catheter placed: [employer] Quick Catheter size (Lebanese): 20 Fluid type: Necrotic fluid Total volume [...] a 0.035 inch Glidewire.Following this, a 4 Lebanese Kumpe catheter was advanced over the wire, andthe wire was repositioned more superior in the right upper quadrant. Thecatheter was then exchanged for a new 14 Lebanese biliary type drainagecatheter with extra proximal sideholes. [...] Internal catheter securement: Locking loop Catheter placed: [employer] Biliary Catheter size (Lebanese): 14 Fluid type: Necrotic fluid Total volume [...] 10 Attestation Signer name: Omar Trujillo MD, MBA, RPVI I attest that I was present for the entire procedure. I reviewed thestored images and agree with the report as written. Omar Trujillo MD, MBA, RPVI food cooking machine operator Division of Vascular and Interventional Radiology Department of Radiology [address] [place] [address] Dictated by: Omar Trujillo MD, MBA Signed by Omar Wetzel MD, MBA on 04/02/2025 14:37 ##### Final ##### Dictated by: OMAR TRUJILLO MD-RAD Dictated DT/TM: 04/02/2025 2:37 pm Interpreted and electronically signed by: OMAR TRUJILLO MD-RAD Signed DT/TM: 04/02/2025 2:37 pm Ekaterina Mohan MD [facility] IR PROCEDURES Final Result * ABO/Rh (04/02/2025 10:14 AM EDT) HX CHECK Yes Prev Hx 04/02/2025 10:28 AM EDT [facility] Blood Bank Subsection\.br \ METHOD Willett 2 04/02/2025 11:10 AM EDT [facility] Blood Bank Subsection\.br \ ANTI-A 40 04/02/2025 11:07 AM EDT [facility] Blood Bank Subsection\.br \ ANTI-B 0 04/02/2025 11:07 AM EDT [facility] Blood Bank Subsection\.br \ ANTI-D 40 04/02/2025 11:07 AM EDT [facility] Blood Bank Subsection\.br \ A1 0 04/02/2025 11:07 AM EDT [facility] Blood Bank Subsection\.br \ B 30 04/02/2025 11:07 AM EDT [facility] Blood Bank Subsection\.br \ ABORh A POS 04/02/2025 11:10 AM EDT [facility] Blood Bank Subsection\.br \ Blood 04/02/2025 10:1 4 AM EDT 04/02/2025 10:24 AM EDT [facility] - 04/02/2025 11:10 AM EDT [place] [address] Sia Vaughn MD LAB BLOOD BANK TE ST ORDERABLES Final Result [facility] [address] [place] [address], [facility] Blood Bank Subsection\.br\ Pathology Department [address] [place] [address] * Antibody screen (04/02/2025 10:14 AM EDT) ANTIBODY SCREEN Negative ABSC 04/02/2025 11:29 AM EDT [facility] Blood Bank Subsection\.b r\ Blood 04/02/2025 10:1 4 AM EDT 04/02/2025 10:24 AM EDT [facility] - 04/02/2025 11:29 AM EDT Performed by [address], [place] [address] us Sia Vaughn MD LAB BLOOD BANK TE ST ORDERABLES Final Result [facility] [address] [place] [address], [facility] Blood Bank Subsection\.br\ Pathology Department [address] [place] [address] * (ABNORMAL) Hepatic function panel (03/29/2025 3:53 AM EDT) Albumin 2.5(L) 3.5 - 5.2 Gram/dL 03/29/2025 4:26 AM EDT [facility] CH Remisol 2.0 SS Globulin, Total 3.7(H) 2.0 - 3.5 Gram/dL 03/29/2025 4:26 AM EDT [facility] CH Remisol 2.0 SS Total Protein 6.2(L) 6.4 - 8.9 Gram/dL 03/29/2025 4:26 AM EDT [facility] CH Remisol 2.0 SS A/G Ratio 0.7(L) 1.0 - 2.5 03/29/2025 4:26 AM EDT [facility] CH Remisol 2.0 SS ALT (SGPT) 10 <=32 Units/Lite r 03/29/2025 4:26 AM EDT [facility] CH Remisol 2.0 SS AST 14 13 - 39 Units/Lite r 03/29/2025 4:26 AM EDT [facility] CH Remisol 2.0 SS Alkaline Phosphatase 62 34 - 104 Units/Lite r 03/29/2025 4:26 AM EDT [facility] CH Remisol 2.0 SS Total Bilirubin 0.2(L) 0.3 - 1.0 mg/dL 03/29/2025 4:26 AM EDT [facility] CH Remisol 2.0 SS Bilirubin, Direct 0.1 0.1 - 0.2 mg/dL 03/29/2025 4:26 AM EDT [facility] CH Remisol 2.0 SS Blood Venous Draw / Unknown 03/29/2025 3:53 AM EDT 03/29/2025 3:59 AM EDT [facility] - 03/29/2025 4:26 AM EDT Performed by [address] [address] Non-Ulp Provider LAB BLOOD ORDERABLES Final Resu lt Performing Organization Address [facility] [[email or web address]] de Phone Number [facility] [address] [place] [address], [facility] Remisol 2.0 Pathology Department [address] [place] [address] * (ABNORMAL) Vancomycin, trough (03/20/2025 11:29 AM EDT) VANCOMYCIN TROUGH 8.8(L) 10.0 - 15.0 mcg/mL 03/20/2025 12:33 PM EDT [facility] CH Remisol 2.0 SS Blood 03/20/2025 11:2 9 AM EDT 03/20/2025 12:10 PM EDT [facility] - 03/20/2025 12:33 PM EDT Performed by [address] [address] Phi Caro MD LAB BLOOD ORDERABLES Final Resu lt Performing Organization Address [facility] [[email or web address]] de Phone Number [facility] [address] [place] [address], [facility] Remisol 2.0 Pathology Department [address] [place] [address] * CULTURE BLOOD (03/19/2025 3:12 PM EDT) Only the most recent of3 resultswithin the time period is included. Blood 03/19/2025 3:12 PM EDT 03/19/2025 5:44 PM EDT [facility] - 03/24/2025 11:01 PM EDT [...] Locations R1: This test was performed at: [facility], Pathology Department, [address] [place] [address], [place], [address]- , [place], [place] Phi Caro MD LAB BLOOD ORDERABLES Final Resu lt [facility] [address] [place] [address], [place] * XR CHEST 1 VW PORTABLE [...] MD IMG XR PROCEDURES Final Result * (ABNORMAL) ZAIDA AURIS PCR (03/18/2025 6:35 PM EDT) ZAIDA AURIS PCR POSITIVE( A) Negative 03/19/2025 8:23 AM EDT SANGEETHA RANDLE Molecular SS Comment: Called VM at [facility] by gt 03/19/2025 08:23:44 EDT This test was developed and its performance characteristics determined by [facility]. It has not been cleared or approved [...] 6:35 PM EDT 03/18/2025 10:20 PM EDT Narrative [facility] - 03/19/2025 8:23 AM EDT Performed by [facility], [address] [place] [address] us Phi Caro MD LAB BLOOD ORDERABLES Final Resu lt [facility] [address] [place] [address], [place] SANGEETHA Stoddard SS Pathology Department [address] [place] [address] * CULTURE CARBAPENEM RESISTANT SCREEN (03/18/2025 6:06 PM EDT) Other 03/18/2025 6:06 PM EDT 03/18/2025 10:20 PM EDT [facility] - 03/21/2025 6:21 AM EDT [...] Locations R1: This test was performed at: [facility], Pathology Department, [address] [place] [address], [facility]- , [place], us Phi Caro MD LAB BLOOD ORDERABLES Final Resu lt [facility] [address] [place] [address], * Cardiology Scanned Result (03/07/2025) Anatomical Region [...] 3:46 PM EDT) 03/01/2025 3:46 PM EDT [facility] - 03/01/2025 3:46 [place] [address]- Patient: JENNIFER AGUILLON : 1990 34 years Gender: Male Account: [id number] Admit: 02/10/2025 05:50 EDT Discharge: Admitting: SOPHIE [...] by DIANE OLIVASPAT Verified: 03/03/25 Signing Location: [facility], [address] [place] [address] GROSS DESCRIPTION: A. Received in formalin labeled [...] A1: Proximal ileal margin, en face A2: Manager Of Health sections of the possible ileostomy adjacent to the ileal margin A3: Colonic margin, en face A4: Appendiceal wall and bisected tip A5 -A8: Manager Of Health sections of the colonic wall around the 3 defects from proximal to distal Report Request ID: [id number] 03/03/2025 13:59 EDT [place] [id number]- Patient: JENNIFER AGUILLON : 1990 34 years Gender: Male Account: [id number] Admit: 02/10/2025 05:50 EDT Discharge: Admitting: SOPHIE BORDEN MD-INT Attending: OLESYA FELICIANO MD-INT Pathology Reports Received: 03/02/2025 08:05 EDT GROSS DESCRIPTION: A9: Random traveling representative sections of the colonic wall A10: 3 possible lymph nodes JULITO Delgado, HTL (ASCP), [place], Msc Pathology.03/01/2025 D Alie/ANGEL /ANGEL DISCLAIMER: I attest that I examined the relevant preparations for the specimens and rendered the diagnosis(es). CPT: 41284 Selected block for future studies: _ Technical testing performed at [facility], [address] [place] [address] Test systems have been developed and their performance characteristics determined by the [facility] ([facility]). Some tests have not been cleared or [...] digital images (whole slide images) on the GlobaTrek Pathology Platform validated at [facility]. Report Request ID: [id number] 03/03/2025 13:59 EDT Dixon Ca MD LAB PATHOLOGY ORDERABLES Final Result [facility] [address] [place] [address], * ADDENDUM REPORT (02/23/2025 5:09 PM EDT) 02/23/2025 5:09 PM EDT [facility] - 02/23/2025 5:09 [place] [address]- Patient: JENNIFER AGUILLON : 1990 34 years Gender: Male Account: [id number] Admit: 02/10/2025 05:50 EDT Discharge: 03/18/2025 14:06 [...] by PHONG ESTRADA Verified: 03/29/25 Signing Location: [place] [address] DISCLAIMER: CPT: _ 02/25/2025 12:37 EDT - Auth (Verified) SPECIMEN: Pseudocyst fine needle aspirate CLINICAL HISTORY: NECROTIZING PANCREATITIS SPECIMEN ADEQUACY: Satisfactory for evaluation DIAGNOSIS: Pseudocyst , fine needle aspirate (ThinPrep and a cell block): - No malignancy identified. - Abundant acute inflammation and debris. GMS special staining will be reported in an addendum. Electronically signed by PHONG ESTRADA Verified: 02/25/25 Signing Location: [facility], [address] [place] [address] Report Request ID: [id number] 03/29/2025 13:[address] [address]- Patient: JENNIFER AGUILLON : 1990 34 years Gender: Male Account: [id number] Admit: 02/10/2025 05:50 EDT Discharge: 03/18/2025 14:06 EDT Admitting: SANDRA MANNING -PUL Attending: SANDRA MANNING -PUL Pathology Reports Received: 02/24/2025 08:51 EDT GROSS DESCRIPTION: 0.5 cc of macias specimen received fresh 1 ThinPrep (pap stain) and 1 cell block (2 H&E, 4 Unstained) _ TAS/RW /RW DISCLAIMER: I attest that I examined the relevant preparations for the specimens and rendered the diagnosis(es). CPT: 46497, 77584 Selected block for future studies: _ Technical testing performed at [facility], [address] [place] [address] Test systems have been developed and their performance characteristics determined by the [facility] ([facility]). Some tests have not been cleared or [...] digital images (whole slide images) on the Tellme Digital Pathology Platform validated at [facility]. Report Request ID: [id number] 03/29/2025 13:35 EDT us Garrett Gonzalez MD LAB PATHOLOGY ORDERABLES Final Result [facility] [address] [place] [address], * NON-TEXTILES PRINTER CYTOLOGY REPORT (02/23/2025 5:09 PM EDT) Only the most recent of3 resultswithin the time period is included. 02/23/2025 5:09 PM EDT [facility] - 02/23/2025 5:09 [place] [address]- Patient: JENNIFER AGUILLON : 1990 34 years Gender: Male Account: [id number] Admit: 02/10/2025 05:50 EDT Discharge: Admitting: SOPHIE [...] by PHONG ESTRADA Verified: 02/25/25 Signing Location: [facility], [address] [place] [address] GROSS DESCRIPTION: 0.5 cc of macias specimen received fresh 1 ThinPrep (pap stain) and 1 cell block (2 H&E, 4 Unstained) _ TAS/RW /RW DISCLAIMER: I attest that I examined the relevant preparations for the specimens and rendered the diagnosis(es). CPT: 73787, 56373 Selected block for future studies: _ Technical testing performed at [facility], [address] [place] [address] Report Request ID: [id number] 02/25/2025 12:38 [place] [address]- Patient: JENNIFER AGUILLON : 1990 34 years Gender: Male Account: [id number] Admit: 02/10/2025 05:50 EDT Discharge: Admitting: SOPHIE BORDEN MD-INT Attending: BORDEN, SOPHIE B, MD-INT Pathology Reports Received: 02/24/2025 08:51 EDT DISCLAIMER: Test systems have been developed and their performance characteristics determined by the [facility] ([facility]). Some tests have not been cleared or [...] digital images (whole slide images) on the GlobaTrek Pathology Platform validated at [facility]. Report Request ID: [id number] 02/25/2025 12:38 EDT us Garrett Gonzalez MD LAB CYTOLOGY ORDERABLES Final Result Performing Organization Address City/State/[facility] Co de Phone Number [facility] [address] [place] [address], * Procedure Scanned Result (02/10/2025 9:59 AM EDT) Historical Provider IN CLINIC/BEDSIDE ORDERAB LES Edited Result - Final from Last 3 Months Insurance EXCHANGE AMBETTER Care Teams Steel Fixer Relationship Specialty Start Date End Date Robbie Ca MD [address] [place] [id number] PCP - General Family Medicine 01/21/25 Garrett Gonzalez MD [address] [address] Referring Physician Gastroenterology 03/07/25 Dixon Ca MD [address] [place] [address], [address] [place] [address] Surgeon General Surgery 04/18/25
--- OUTSIDE RECORDS SUMMARY | 2025-05-04 11:13 | XMS_ITS | Encounter Summary ---
Author Organization [facility] Address [address] [place] [address] Care Team Providers Care Machine Puller Name Role Phone Robbie Ca MD Primary Care Provider [phone] Garrett Gonzalez MD Unavailable [phone] Dixon Ca MD Unavailable [phone] Reason for Referral * Consultation (Routine) - Closed Specialty Diagnoses / Procedures Referred By Contac t Referred To Contact Diagnoses Pancreatitis Procedures Enteroscopy Dalton Navarro PA [address] [place] [address] Phone: tel: fax: [address] [address] Referral ID Status Reason Start Date Expiration Date V isits Requested Visits Authorized [id number] Closed [facility] 04/18/2025 05/18/2026 1 1 Encounter Details Date Type Department Care Team (Latest Contact Info) Description 04/18/2025 Orders Only [facility] [address] [place], [place] [id number] Dalton Navarro PA [address] [place], [place] [id number] Pancreatitis (Primary Dx) Social History Tobacco Use [...] Primary documented in this encounter Care Teams Machine Puller Relationship Specialty Start Date End Date Robbie Ca MD [address] [place] [address] PCP - General Family Medicine 01/21/25 Garrett Gonzalez MD [address] [address] Referring Physician Gastroenterology 03/07/25 Dixon Ca MD [address] [place] [address], [address] [place] [address] Surgeon General Surgery 04/18/25 documented as of this encounter
--- OUTSIDE RECORDS SUMMARY | 2025-05-04 11:13 | XMS_ITS | Encounter Summary ---
Author Organization [facility] Address [address] [place] [address] Care Team Providers Care Basketball Player Name Role Phone Robbie Ca MD Primary Care Provider [phone] Garrett Gonzalez MD Unavailable [phone] Dixon Ca MD Unavailable [phone] Reason for Visit * Reason Onset Date Comments Hospital Follow Up 05/02/2025 Encounter Details Date Type Department Care Team (Late st Contact Info) Description 05/02/2025 Telephone [facility] Administrative Services [address] [facility] [address] [place], [place] [id number] Katia Carranza RN Hospital Follow Up Social History Tobacco Use Types Packs/Day Years [...] encounter Miscellaneous Notes * Telephone Encounter - Katia Carranza RN - 05/02/2025 10:00 AM EST Transitional Care Management Patient Contact Chandrakant Henna 1990 Date of Discharge: 04/29/2025 Facility Discharged: [facility] Diagnosis at time of Discharge: 1. Leukocytosis D72.829 2. Pancreatitis K85.90 3. Acute kidney injury N17.9 4. Abdominal pain R10.9 5. Vomiting R11.10 6. Hyponatremia E87.1 Date of Call: 05/02/2025 Date of TCM Face-to Face Visit: Call Status Call Status: Completed General Clinical How are you feeling now?: Spoke with pt.'s spouse as pt. is sleeping at time of call. No questions or concerns at time of call. Are you able to complete your routine daily activities?: Yes Since your discharge, have you had any emergency room visits or admissions?: No Are you experiencing any other problems that should be addressed?: No Discharge Did you receive discharge instructions?: Yes, verbal and written Did you fill all your prescriptions?: Yes Are you taking your medications as prescribed?: Yes Follow-Up Visit Do you have a follow-up appointment scheduled with your PCP?: No (Pt. has an appt. to f/u with General Surgery. Spouse states she plans to call to schedule f/u with Dr. Louise as well.) Do you understand the importance of the follow-up appointment?: Yes Do you have any conflicts that would cause you to miss your follow-up appointment?: No The hospital discharge medication list was reviewed and reconciled with the outpatient medication list. Yes. Katia Carranza RN 05/02/2025 10:00 AM documented in this encounter Plan of Treatment Not on file documented as of this encounter Visit Diagnoses Not on filedocumented in this encounter Care Teams Basketball Player Relationship Specialty Start Date End Date Robbie Ca MD [address] [place] [address] PCP - General Family Medicine 01/21/25 Garrett Gonzalez MD [address] [address] Referring Physician Gastroenterology 03/07/25 Dixon Ca MD [address] [place] [facility], [address] [place] [address] Surgeon General Surgery 04/18/25 documented as of this encounter
--- OUTSIDE RECORDS SUMMARY | 2025-05-04 11:13 | XMS_ITS | Clinical Summary ---
Author Organization [facility] Address [address] [place] [address] Care Team Providers Care Coding Support Specialist Name Role Phone Robbie Ca MD Primary Care Provider [phone]- [phone] Allergies Active Allergy Reactions Criticality Noted Date [...] - 02/10/2025 4:11 AM EDT Hospital Encounter [address] [place] [id number] Vipul Alves DO Gay, Bryce, DO Burgess, [...] drink = 0.6 oz pur e alcohol) [facility] Utilities Answer Date Recorded In the past 12 months has [employer], gas, oil, or water [employer] threatened to shut off services in your [...] and heating? Not hard at all 12/21/2024 [facility] Occupat ional Health - Occupational Stress [...] GED or equivalent No 12/21/2024 Preferred Language Belgian 12/21/2024 PHQ-2 Answer Date Recorded Patient Health [...] this topic Medical Devices Implanted Type Area Swim Coach Device Identifier Shelf Expiration Date Model / Serial / Lot Clipapplr M/ Endo Ligaclip Rot 10mm /Lg - [id number] Implanted:Qty : 1 on 12/23/2024 by Yefri Heller MD at [facility] Implant N/A: Abdomen [employer] [facility] [employer] J [id number] 08/20/2029 [id number] / / [id number] Procedures Procedure [...] METABOLIC PANEL Routine 02/01/2025 3:43 AM EDT HEPATITIS PANEL, ACUTE Add-On 4:53 PM EDT from Last 3 Months or Most Recently Relevant to Health Maintenance Results * (ABNORMAL) POC Glucose Q6H (02/10/2025 12:22 AM EDT) Only the most recent of33 resultswithin the time period is included. Glucose 139(H) 70 - 130 mg/dL 02/10/2025 12:24 AM EDT [facility] Comment:Serial Number: [id number]: [id number] Blood 02/10/2025 12:2 2 AM EDT 02/10/2025 12:24 AM EDT Cheri Munguia MD POINT OF CARE TEST ORDERABLES Fi nal Result [facility]
[address] [place] [address], [place] [phone] * Body Fluid Culture - Body Fluid, Retroperitoneum (02/09/2025 2:20 PM EDT) Only the most recent of2 resultswithin the time period is included. Body Fluid Culture No growth at 3 days 02/12/2025 10:02 AM EDT [facility] Gram Stain No WBCs or organisms seen 02/12/2025 10:02 AM EDT [facility] Body Fluid Retroperitoneal compartment structure / Unknown Collection / Unknown 02/09/2025 2:20 PM EDT 02/09/2025 3:18 PM EDT Jose De Jesus Shaw MD MICROBIOLOGY - GENERAL ORD ERABLES Final Result Performing Organization Address City/[facility]/ZIP Co de Phone Number [facility]
[address] [place] [address], [place] [phone] [place] [address] LABORATORY
[address] [place] [address], * (ABNORMAL) CBC Auto Differential (02/09/2025 3:39 AM EDT) Only the most recent of5 resultswithin the time period is included. WBC 10.65 3.40 - 10.80 10*3/mm3 02/09/2025 6:48 AM EDT [facility] RBC 3.19(L) 4.14 - 5.80 10*6/mm3 02/09/2025 6:48 AM EDT [facility] Hemoglobin 9.0(L) 13.0 - 17.7 g/dL 02/09/2025 6:48 AM EDT [facility] Hematocrit 29.1(L) 37.5 - 51.0 % 02/09/2025 6:48 AM EDT [facility] MCV 91.2 79.0 - 97.0 fL 02/09/2025 6:48 AM EDT [facility] MCH 28.2 26.6 - 33.0 pg 02/09/2025 6:48 AM EDT [facility] MCHC 30.9(L) 31.5 - 35.7 g/dL 02/09/2025 6:48 AM EDT [facility] RDW 22.0(H) 12.3 - 15.4 % 02/09/2025 6:48 AM EDT [facility] RDW-SD 70.1(H) 37.0 - 54.0 fl 02/09/2025 6:48 AM EDT [facility] MPV 9.9 6.0 - 12.0 fL 02/09/2025 6:48 AM EDT [facility] Platelets 210 140 - 450 10*3/mm3 02/09/2025 6:48 AM [facility] Blood Venipuncture / Unknown 02/09/2025 3:39 AM EDT 02/09/2025 4:35 AM EDT [facility] - 02/09/2025 6:48 AM EDT The previously reported component NRBC is no longer being reported. Previous result was 0.0 /100 WBC (Reference Range: 0.0-0.2 /100 WBC) on 02/09/2025 at 0447 EDT. us Oli Ezra Cochran DO LAB BLOOD ORDERABLES Final Res ult [facility]
[address] [place] [address], * (ABNORMAL) Manual Differential (02/09/2025 3:39 AM EDT) Only the most recent of3 resultswithin the time period is included. Neutrophil % 66.0 42.7 - 76.0 % 02/09/2025 6:48 AM EDT [facility] Lymphocyte % 4.0(L) 19.6 - 45.3 % 02/09/2025 6:48 AM EDT [facility] Monocyte % 9.0 5.0 - 12.0 % 02/09/2025 6:48 AM EDT [facility] Eosinophil % 2.0 0.3 - 6.2 % 02/09/2025 6:48 AM EDT [facility] Basophil % 1.0 0.0 - 1.5 % 02/09/2025 6:48 AM EDT [facility] Bands % 15.0(H) 0.0 - 5.0 % 02/09/2025 6:48 AM EDT [facility] Atypical Lymphocyte % 3.0 0.0 - 5.0 % 02/09/2025 6:48 AM EDT [facility] Neutrophils Absolute 8.63(H) 1.70 - 7.00 10*3/mm3 02/09/2025 6:48 AM EDT [facility] Lymphocytes Absolute 0.75 0.70 - 3.10 10*3/mm3 02/09/2025 6:48 AM EDT [facility] Monocytes Absolute 0.96(H) 0.10 - 0.90 10*3/mm3 02/09/2025 6:48 AM EDT [facility] Eosinophils Absolute 0.21 0.00 - 0.40 10*3/mm3 02/09/2025 6:48 AM EDT [facility] Basophils Absolute 0.11 0.00 - 0.20 10*3/mm3 02/09/2025 6:48 AM EDT [facility] Anisocytosis Slight/1+ None Seen 02/09/2025 6:48 AM EDT [facility] Smudge Cells Slight/1+ None Seen 02/09/2025 6:48 AM EDT [facility] Vacuolated Neutrophils Slight/1+ None Seen 02/09/2025 6:48 AM EDT [facility] Clumped Platelets Present None Seen 02/09/2025 6:48 AM EDT [facility] Blood Venipuncture / Unknown 02/09/2025 3:39 AM EDT 02/09/2025 4:35 AM EDT us Oli Cochran LAB BLOOD ORDERABLES Final Res ult Performing Organization Address City/[facility] Co de Phone Number [facility]
[address] [place] [address], * Magnesium (02/09/2025 3:39 AM EDT) Only the most recent of5 resultswithin the time period is included. Magnesium 1.7 1.6 - 2.6 mg/dL 02/09/2025 5:14 AM EDT [facility] Blood Venipuncture / Unknown 02/09/2025 3:39 AM EDT 02/09/2025 4:38 AM EDT us Oli Cochran LAB BLOOD ORDERABLES Final Res ult Performing Organization Address City/[facility]/ZIP Co de Phone Number [facility]
[address] [place] [address], [place] [phone] * (ABNORMAL) Comprehensive Metabolic Panel (02/09/2025 3:39 AM EDT) Only the most recent of5 resultswithin the time period is included. Glucose 126(H) 65 - 99 mg/dL 02/09/2025 5:14 AM EDT [facility] BUN 14.6 6.0 - 20.0 mg/dL 02/09/2025 5:14 AM EDT [facility] Creatinine 0.72(L) 0.76 - 1.27 mg/dL 02/09/2025 5:14 AM EDT [facility] Sodium 127(L) 136 - 145 mmol/L 02/09/2025 5:14 AM EDT [facility] Potassium 4.1 3.5 - 5.2 mmol/L 02/09/2025 5:14 AM EDT [facility] Comment:Specimen hemolyzed. Result may be falsely elevated. Chloride 98 98 - 107 mmol/L 02/09/2025 5:14 AM EDT [facility] CO2 22.5 22.0 - 29.0 mmol/L 02/09/2025 5:14 AM EDT [facility] Calcium 7.1(L) 8.6 - 10.5 mg/dL 02/09/2025 5:14 AM EDT [facility] Total Protein 5.2(L) 6.0 - 8.5 g/dL 02/09/2025 5:14 AM EDT [facility] Albumin 1.8(L) 3.5 - 5.2 g/dL 02/09/2025 5:14 AM EDT [facility] ALT (SGPT) 20 1 - 41 U/L 02/09/2025 5:14 AM EDT [facility] AST (SGOT) 34 1 - 40 U/L 02/09/2025 5:14 AM EDT [facility] Alkaline Phosphatase 185(H) 39 - 117 U/L 02/09/2025 5:14 AM EDT [facility] Total Bilirubin 0.5 0.0 - 1.2 mg/dL 02/09/2025 5:14 AM EDT [facility] Globulin 3.4 gm/dL 02/09/2025 5:14 AM EDT [facility] Comment:Calculated Result A/G Ratio 0.5 g/dL 02/09/2025 5:14 AM EDT [facility] BUN/Creatinine Ratio 20.3 7.0 - 25.0 02/09/2025 5:14 AM EDT [facility] Anion Gap 6.5 5.0 - 15.0 mmol/L 02/09/2025 5:14 AM EDT [facility] eGFR 122.2 >60.0 mL/min/1.7 3 02/09/2025 5:14 AM EDT [facility] Blood Venipuncture / Unknown 02/09/2025 3:39 AM EDT 02/09/2025 4:38 AM EDT Narrative [facility] - 02/09/2025 5:14 AM EDT GFR [...] DO LAB BLOOD ORDERABLES Final Res ult [facility]
[address] [place] [address], * CT Abdomen Pelvis With Contrast (02/07/2025 [...] MD 02/07/2025 5:07 PM EDT Workstation ID: [id number] Narrative 02/07/2025 5:[address] ABDOMEN [...] and peritoneal cavity. The right flank collection x 10 cm (TV by AP), previously [...] MD 02/07/2025 5:07 PM EDT Workstation ID: [id number] Jose De Jesus Shaw MD IMG CT ORDERABLES Final Re sult * Blood Culture - Blood, Arm, Left (02/07/2025 11:30 AM EDT) Pathologist [facility] Blood Culture No growth at 5 days 02/12/2025 11:45 AM EDT [facility] Blood Structure of left upper limb / Unknown Venipuncture / Unknown 02/07/2025 11:30 AM EDT 02/07/2025 11:39 AM EDT Narrative [facility] - 02/12/2025 11:45 AM EDT Aerobic Bottle Only Less than seven (7) mL's of blood was collected. Insufficient quantity may yield false negative results. Jose De Jesus Shaw MD MICROBIOLOGY - GENERAL ORD ERABLES Final Result Performing Organization Address City/[facility]/ZIP Co de Phone Number [facility]
[address] [place] [address], * (ABNORMAL) C-reactive Protein (02/07/2025 3:52 AM EDT) Only the most recent of3 resultswithin the time period is included. Pathologist [facility] C-Reactive Protein 16.90(H) 0.00 - 0.50 mg/dL 02/07/2025 5:23 AM EDT [facility] Blood Venipuncture / Unknown 02/07/2025 3:52 AM EDT 02/07/2025 4:47 AM EDT Jose De Jesus Shaw MD LAB BLOOD ORDERABLES Final Result [facility]
[address] [place] [address], * Lipase (02/07/2025 3:52 AM EDT) [facility] Lipase 57 13 - 60 U/L 02/07/2025 10:29 AM EDT [facility] Blood Venipuncture / Unknown 02/07/2025 3:52 AM EDT 02/07/2025 4:47 AM EDT us Jose De Jesus Shaw MD LAB BLOOD ORDERABLES Final Result [facility]
[address] [place] [address], * (ABNORMAL) CBC (No Diff) (02/06/2025 3:04 AM EDT) Only the most recent of2 resultswithin the time period is included. [facility] WBC 13.59(H) 3.40 - 10.80 10*3/mm3 02/06/2025 4:27 AM EDT [facility] RBC 3.14(L) 4.14 - 5.80 10*6/mm3 02/06/2025 4:27 AM EDT [facility] Hemoglobin 8.9(L) 13.0 - 17.7 g/dL 02/06/2025 4:27 AM EDT [facility] Hematocrit 29.2(L) 37.5 - 51.0 % 02/06/2025 4:27 AM EDT [facility] MCV 93.0 79.0 - 97.0 fL 02/06/2025 4:27 AM EDT [facility] MCH 28.3 26.6 - 33.0 pg 02/06/2025 4:27 AM EDT [facility] MCHC 30.5(L) 31.5 - 35.7 g/dL 02/06/2025 4:27 AM EDT [facility] RDW 21.3(H) 12.3 - 15.4 % 02/06/2025 4:27 AM EDT [facility] RDW-SD 69.0(H) 37.0 - 54.0 fl 02/06/2025 4:27 AM EDT [facility] MPV 9.8 6.0 - 12.0 fL 02/06/2025 4:27 AM EDT [facility] Platelets 232 140 - 450 10*3/mm3 02/06/2025 4:27 AM EDT [facility] Blood Venipuncture / Unknown 02/06/2025 3:04 AM EDT 02/06/2025 4:16 AM EDT us Yefri Heller MD LAB BLOOD ORDERABLES Final Re sult [facility]
[address] [place] [address], * (ABNORMAL) Basic Metabolic Panel (02/05/2025 3:01 AM EDT) Only the most recent of3 resultswithin the time period is included. Glucose 117(H) 65 - 99 mg/dL 02/05/2025 4:21 AM EDT [facility] BUN 20.8(H) 6.0 - 20.0 mg/dL 02/05/2025 4:21 AM EDT [facility] Creatinine 0.76 0.76 - 1.27 mg/dL 02/05/2025 4:21 AM EDT [facility] Sodium 131(L) 136 - 145 mmol/L 02/05/2025 4:21 AM EDT [facility] Potassium 4.5 3.5 - 5.2 mmol/L 02/05/2025 4:21 AM EDT [facility] Chloride 101 98 - 107 mmol/L 02/05/2025 4:21 AM EDT [facility] CO2 21.3(L) 22.0 - 29.0 mmol/L 02/05/2025 4:21 AM EDT [facility] Calcium 7.2(L) 8.6 - 10.5 mg/dL 02/05/2025 4:21 AM EDT [facility] BUN/Creatinine Ratio 27.4(H) 7.0 - 25.0 02/05/2025 4:21 AM EDT [facility] Anion Gap 8.7 5.0 - 15.0 mmol/L 02/05/2025 4:21 AM EDT [facility] eGFR 120.2 >60.0 mL/min/1.7 3 02/05/2025 4:21 AM EDT [facility] Blood Venipuncture / Unknown 02/05/2025 3:01 AM EDT 02/05/2025 3:48 AM EDT [facility] - 02/05/2025 4:21 AM EDT GFR [...] DO LAB BLOOD ORDERABLES Final Resul t [facility]
[address] [place] [address], * (ABNORMAL) Prealbumin (02/02/2025 4:17 PM EDT) Prealbumin 3.5(L) 20.0 - 40.0 mg/dL 02/02/2025 11:38 PM EDT [facility] Blood Venipuncture / Unknown 02/02/2025 4:17 PM EDT 02/02/2025 5:12 PM EDT [facility] LAB BLOOD ORDERABLES Final Resul t Performing Organization Address City/[facility]/ZIP Co de Phone Number [facility]
[address] [place] [address], [place] [phone] * (ABNORMAL) Phosphorus (02/02/2025 3:49 AM EDT) Only the most recent of2 resultswithin the time period is included. Phosphorus 4.6(H) 2.5 - 4.5 mg/dL 02/02/2025 5:16 AM EDT [facility] Blood Venipuncture / Unknown 02/02/2025 3:49 AM EDT 02/02/2025 4:49 AM EDT [facility] LAB BLOOD ORDERABLES Final Resul t Performing Organization Address [facility] de Phone Number [facility]
[address] [place] [address], * Scan Slide (02/01/2025 3:43 AM EDT) Anisocytosis Slight/1+ None Seen 02/01/2025 6:15 AM EDT [facility] [place] Cells Slight/1+ None Seen 02/01/2025 6:15 AM EDT [facility] WBC Morphology Normal Normal 02/01/2025 6:15 AM EDT [facility] Platelet Morphology Normal Normal 02/01/2025 6:15 AM EDT [facility] Blood Venipuncture / Unknown 02/01/2025 3:43 AM EDT 02/01/2025 5:15 AM EDT [facility] LAB BLOOD ORDERABLES Final Resul t Performing Organization Address City/[facility] Co de Phone Number [facility]
[address] [place] [address], * Hepatitis Panel, Acute (12/19/2024 4:53 PM EDT) Hepatitis B Surface Ag Non-Reacti ve Non-Reacti ve 12/21/2024 1:08 PM EDT [facility] Hep A IgM Non-Reacti ve Non-Reacti ve 12/21/2024 1:08 PM EDT [facility] Hep B C IgM Non-Reacti ve Non-Reacti ve 12/21/2024 1:08 PM EDT [facility] Hepatitis C Ab Non-Reacti ve Non-Reacti ve 12/21/2024 1:08 PM EDT [facility] Blood Venipuncture / Unknown 12/19/2024 4:53 PM EDT 12/19/2024 5:02 PM EDT Narrative [facility] - 12/21/2024 1:08 PM EDT Results may be falsely decreased if patient taking Biotin. Leoncio Pastrana MD LAB BLOOD ORDERABLES Final Res ult [facility]
[address] [place] [address], from Last 3 Months or Most Recently Relevant to Health Maintenance Insurance [facility] [employer] [place] EXCHANGE Advance Directives * CPR (Attempt to [...] Of Support Discussed With: Patient Care Teams Coding Support Specialist Relationship Specialty Start Date End Date Robbie Ca MD [address] [place] [address] [place] [address] PCP - General Family Medicine 12/19/24
--- OUTSIDE RECORDS SUMMARY | 2025-05-04 11:13 | XMS_ITS | Encounter Summary ---
Author Organization [facility] Address [address] [place] [address] Care Team Providers Care Straightening Press Operator Helper Name Role Phone Robbie Ca MD Primary Care Provider [phone] Garrett Gonzalez MD Unavailable [phone] Encounter Details Date Type Department Care Team (Late st Contact Info) Description 03/07/2025 Orders Only [facility] [place] [facility] [address] [phone] Provider, MD Thor [address] [place] [address] Social History Tobacco Use Types Packs/Day Years Used Date Smoking Tobacco: Never Assessed Sex and Gender Information Value Date Recorded Sex Assigned at Not on file Legal Sex Male 5:37 AM EDT Gender Identity Not on file Sexual Orientation Not on file documented as of this encounter Plan of Treatment Not on file documented as of this encounter Procedures Procedure Name Priority Date/Time Associated Diagnosis Comments PROCEDURE SCANNED RESULT Routine 02/10/2025 9:59 AM EDT documented in this encounter Results * Procedure Scanned Result (02/10/2025 9:59 AM EDT) Historical Provider IN CLINIC/BEDSIDE ORDERAB LES Edited Result - Final documented in this encounter Visit Diagnoses Not on filedocumented in this encounter Care Teams Straightening Press Operator Helper Relationship Specialty Start Date End Date Robbie Ca MD [address] [place] [address] [phone] PCP - General Family Medicine 01/21/25 Garrett Gonzalez MD [address] [address] Referring Physician Gastroenterology 03/07/25 documented as of this encounter
--- NOTE | 2025-05-04 11:17 | CT_ITS ---
FINAL REPORT TECHNIQUE: IV contrast enhanced exam This study was performed with techniques to keep radiation doses as low as reasonably achievable, (ALARA). Individualized dose reduction techniques using automated exposure control or adjustment of mA and/or kV according to the patient's size were employed. CLINICAL HISTORY: ACUTE PANCREATITIS/RETROPERITONEAL ABCESS COMPARISON: None FINDINGS: CT ABDOMEN PELVIS WITH CONTRAST: Abdomen: There is a trace left pleural effusion present. The gallbladder is absent. Liver demonstrates a small cyst in the liver. The spleen and adrenal glands are unremarkable. There are 2 cyst gastrostomy catheters which extend from the pancreatic tail into the distal gastric body. There is minimal stranding which suggest chronic pancreatitis without necrosis. There is no pseudocyst seen in the pancreas or cyst gastrostomy tube sites. There is also a PEG tube and a jejunostomy tube. The kidneys demonstrate no mass or obstruction. No bowel obstruction is seen. There is stranding in the mesenteric fat, which suggests chronic inflammation or minimal ascites. There are bilateral retroperitoneal fluid collections inferolateral to the kidneys. The right retroperitoneal fluid collection contains air, and measures 5.3 x 3.5 x 4.2 cm in diameter. The left fluid collection measures 4.5 x 2.5 x 5.9 cm in diameter, and contains a pigtail catheter in a peripheral portion of the fluid collection. Pelvis: The appendix is not visualized. Pelvic bowel loops are unremarkable. No fluid collection or adenopathy is seen. The bladder is decompressed. IMPRESSION: 1. There are bilateral retroperitoneal fluid collections containing air bubbles. These could represent abscesses or pseudocysts with air introduced from previous drainage. 2. Cyst gastrostomy drainage catheters extend along the pancreatic tail to the distal gastric body without associated pseudocyst. 3. Changes of pancreatitis without pancreatic necrosis or obstruction. Reviewed, Interpreted and Dictated by Lila Stewart MD Transcribed by Aleida Brizuela Authenticated and [facility]
[2025-05-04] MEDS: IOPAMIDOL-370 (76%);100ML BOTTLE 68 ML IV (15:28)
[2025-05-04] MEDS: SODIUM CHLORIDE 0.9% 10ML SYR (RAD ONLY) 10 ML IV (15:28)
== END 2025-05-04 23:59 | disposition home or self-care (01) ==
LOC: RAD 11:11
PROVIDERS: PCP Family Medicine; Visit Provider Student in an Organized Health Care Education/Training Program
DX: K85.90 Acute pancreatitis without necrosis or infection, unspecified (principal); R93.5 Abnormal findings on diagnostic imaging of other abdominal regions, including retroperitoneum; K68.19 Other retroperitoneal abscess; Z98.890 Other specified postprocedural states
CPT/HCPCS: 74177; Q9967

== ENCOUNTER 2025-05-10 14:30 | Outpatient (CLI) | payer OTHER, SELFPAY ==
--- OUTSIDE RECORDS SUMMARY | 2025-05-02 14:15 | XMS_ITS | Encounter Summary ---
Author Organization [facility] Address [address] [facility] [address] [place] [address] Care Team Providers Care Bacteriologist Soil Name Role Phone Robbie Ca MD Primary Care Provider [phone] Garrett Gonzalez MD Unavailable [phone] Dixon Ca MD Unavailable [phone] Reason for Referral * Imaging (Routine) - Authorized Specialty Diagnoses / Procedures Referred By Contac t Referred To Contact Diagnoses Acute pancreatitis Retroperitoneal abscess Procedures CT Abdomen Pelvis with IV contrast Dixon Ca MD [address] [facility], [address] [place] [address] Phone: tel: fax: [facility] [address] [place] [facility] [address] [place] [address] Phone: tel: fax: Referral ID Status Reason Start Date Expiration Date Visits Requested Visits Authorized [id number] Authorized Patient Preference: Facility/Pr ovider 05/02/2025 06/01/2026 1 1 Reason for Visit * Reason Comments Post-op Gallbladder/pancreat itis. * Consultation (Routine) - Pending Review Specialty Diagnoses / Procedures Referred By Contac t Referred To Contact General Surgery Diagnoses Gallbladder problem Referral ID Status Reason Start Date Expiration Date V isits Requested Visits Authorized [id number] Pending Review 04/18/2025 05/18/2026 1 1 Encounter Details Date Type Department Care Team (Late st Contact Info) Description 05/02/2025 2:15 PM EST Office Visit [facility] [address] [place] [address] Dixon Ca MD [address] [place] [address], [address] [place] [address] Acute pancreatitis (Primary Dx); Retroperitoneal abscess Social History Tobacco Use Types Packs/Day Years Used Date Smoking Tobacco: Never Smokeless Tobacco: Never Tobacco Cessation:Counseling Given: Not Answered Alcohol Use Standard Drinks/Week Comments Never 0 (1 standard drink = 0.6 oz pur e alcohol) Sex and Gender Information Value Date Recorded Sex Assigned at Not on file Legal Sex Male 5:37 AM EDT Gender Identity Not on file Sexual Orientation Not on file documented as of this encounter Progress Notes * Dixon Ca MD - 05/02/2025 2:15 PM EST [facility] NOTE Patient: Chandrakant Aguillon Age: 34 y.o. Sex: male : 1990 Visit Date: 05/02/2025 Visit Type: Follow-up Chief Complaint Patient presents with Post-op Gallbladder/pancreatitis. History of Present Illness: Mr. 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 His bowels have been moving nonbloody stool through his ostomy consistently and without difficulty.He advanced his diet to regular foods on Sunday 04/29 and has been tolerating that well with no nausea or vomiting. During this time he has rarely used tube feeds and believes tube feeding was making him nauseous, improved with tube feed cessation. He has not had abdominal pain, fever, chills, or difficulties urinating. His only remaining drain had a measured output of 20 mL when it was emptied for the first time in over 24h this morning. His GI doctor wanted to get a CT pelvis/abdomen to assessintraabdominal fluid burden and consider pulling the drain. Mr. Aguillon's only complaint today was his sciatica. He plans to f/u with his PCP on Friday. Past Medical, Social and Family History: The following portions of the chart were reviewed this encounter and updated as appropriate: Review of Systems: Constitutional: No fever, No chills Eyes: No blurred vision, No eye pain Cardiovascular: No chest pain, No edema Respiratory: No dyspnea, No orthopnea Gastrointestinal: No vomiting, No abdominal pain, Neurological: Has pain radiating down posterior leg consistent with sciatica Musculoskeletal: No leg cramps, No arthralgia Skin: No rash, No itching Psychiatric: No depression, No confusion Vitals: There were no vitals filed for this visit. Physical Exam: Appearance: Alert, cooperative, no distress HEENT: NCAT, anicteric Skin: no visible rashes or lesions Pulmonary: nonlabored respirations on room air Cardiovascular: RRR Abdomen: no tenderness to palpation, no rebound, stoma pink and patent with succus, IR drain with minimal purulent output, midline well healed, G and J tubes are clamped Musculoskeletal: Gait and station: normal Psychiatric: normal mood, appropriate affect Neurologic: Alert and oriented, gait normal Procedures Data: Lab Results Component Value Date WBC 20.6 (H) 04/27/2025 HGB 14.5 04/27/2025 HCT 42.8 04/27/2025 PLT 649 (H) 04/27/2025 NA 123 (A) 04/27/2025 K 4.0 04/27/2025 CL 88 (L) 04/27/2025 CO2 19 (L) 04/27/2025 BUN 120 (H) 04/27/2025 CREATININE 2.08 (H) 04/27/2025 AST 63 (H) 04/27/2025 ALT 117 (H) 04/27/2025 BILITOT 0.4 04/27/2025 ALKPHOS 317 (H) 04/27/2025 === 04/27/25 === CT ABDOMEN PELVIS W CONTRAST - Narrative - EXAM: CT Abdomen and pelvis INDICATION: Pancreatitis. Drain placement. Increasing pain and vomiting. Comparison Exams:04/11/2025 Technique: Images of the abdomen and pelvis were obtained Without IV contrast Contrast: Isovue 370 Amount of contrast: 100 mL Enteric contrast: None FINDINGS: LOWER CHEST: Visualized heart, lungs and pleura are unremarkable. ABDOMEN: Hepatic: Subcentimeter hypodensity in the right hepatic lobe consistent with a small cyst. Biliary: There is an internal biliary drain with distal tip in the duodenum and proximal tip coiledin the left hepatic bile ducts. Small amount of pneumobilia. Pancreas: The pancreas enhances homogeneously. There is a air-fluid collection between the pancreasand posterior gastric wall measuring 4.7 x 3.2 cm, previously 4.3 x 2.6 cm. Within this collection there is an Axios stent and through the stent a drainage catheter Spleen: Spleen is normal in size and density. No focal masses. Adrenals: Both adrenals are normal in size, morphology and density. No focal masses. Kidneys and ureters: Both kidneys are normal in size. No nephrolithiasis or hydronephrosis. No focal mass. Retroperitoneum: In the left posterior pararenal space there is a percutaneous pigtail drainage catheter with an air-fluid collection measuring 3.8 x 8.3 cm, slightly smaller than on prior exam. Thiscollection extends into the posterior abdominal wall soft tissues to the skin. This collection alsoextends more inferiorly into the left anterior pelvis. In the right posterior pararenal space is another percutaneous drainage catheter with minimal surrounding air and fluid measuring 2.3 x 2.0 cm, decreased in size. There is a third right percutaneous drainage catheter extending into the right hemipelvis with no surrounding fluid. Distal esophagus, stomach and duodenum: Gastrostomy tube in place. There is a percutaneous jejunostomy tube in place. Bowel and mesentery: Diffuse mesenteric edema. No significant large or small bowel dilation. PELVIS: Bladder: The urinary bladder is normal for degree of distention. Reproductive organs: Prostate, seminal vesicles and scrota are normal.. Extraperitoneal: Major vessels are normal. No lymphadenopathy or masses. Osseous and soft tissues: No acute or significant osseous, articular or soft tissue abnormalities. - Impression - 1. Acute pancreatitis with an air-fluid collection between the pancreas and the stomach measuring 4.7 x 3.2 cm, slightly larger than on prior exam. Within this collection is an Axios stent and through the Axios stent a second stent has been placed. 2. Left posterior pararenal space air-fluid collection with a percutaneous drainage catheter in place. This collection measures 4.7 x 3.2 cm and extends posteriorly to the skin and inferiorly into the pelvis 3. Right retroperitoneal air-fluid collection, small in size and not significantly changed with an internal pigtail drainage catheter. There is a second right percutaneous drainage catheter extendinginto the right pelvis with no surrounding fluid collection 4. No bowel obstruction 5. Diffuse mesenteric edema 6. Biliary stent in place with small amount of pneumobilia 7. Gastrostomy tube and jejunostomy tube Dictated by: Marco Antonio Gonzalez M.D. Signed by Marco Antonio Gonzalez M.D. on 04/27/2025 13:50 ##### Final ##### Dictated by: MARCO ANTONIO GONZALEZ MD-RAD Dictated DT/TM: 04/27/2025 1:50 pm Interpreted and electronically signed by: MARCO ANTONIO GONZALEZ MD-RAD Signed DT/TM: 04/27/2025 1:50 pm No results found for this or any previous visit. === 03/18/25 === XR CHEST 1 VW PORTABLE - Narrative - INDICATION: Fever. TECHNIQUE: Frontal chest was obtained at 03:44 hours. COMPARISON: Chest, single portable view obtained on 03/18/2025 at 06:24hours. CT chest 03/09/2025 (report only, imaging unavailable). FINDINGS: The cardiomediastinal silhouette is normal in size. There is stable diffuse hazy opacity throughout the left lung. This is unchanged. There is no pneumothorax. No acute osseous process. - Impression - There is stable diffuse hazy opacity throughout the left lung. This is likely due to the large loculated left pleural effusion seen on the recent chest CT. Signed by Oscar Joseph MD ##### Final ##### Dictated by: OSCAR JOSEPH MD-RAD Dictated DT/TM: 03/19/2025 4:17 am Interpreted and electronically signed by: OSCAR JOSEPH MD-RAD Signed DT/TM: 03/19/2025 4:48 am Visit Diagnoses: No diagnosis found. Assessment, Management and Plan: 34M s/p complicated hospital course with post-ERCP pancreatitis, nec panc, gastrocolic fistula requiring ex lap, R darlene, ileostomy creation, abscess washout, G and J tube placement. Recovering well and tolerating diet without supplemental feeds. Drain output is minimal, stoma functional, and he has attended all his scheduled followups. Plan to repeat CT to assess intraabdominal fluid collections for drain removal vs reposition. Tolerating diet, will leave G and J tubes in place for now while patient continues to recover but likely can remove in the near future. PLAN - G tube and J tubes clamped - Regular diet as tolerated - Daily wound care, tube flushes, and dressing changes - CT abdomen/pelvis this week to evaluate intraabdominal fluid burden - F/u in clinic next week No orders of the defined types were placed in this encounter. No follow-ups on file. Reyna Rosenberg MD [facility] 05/02/2025 This patient was seen with the resident physician and I am in agreement with the assessment and plan. Plan for CT A/P later this week and follow up next week to discuss. He will likely need drains rearranged, pulled, etc. He looks well. Cap g- and j-tubes, flush the latter. Mihir Ca MD documented in this encounter Plan of Treatment Upcoming Encounters Date Type Department Care Team (Late st Contact Info) Description 05/16/2025 2:30 PM EST Office Visit [address] [address] Dixon Ca MD [address] [place] [address], [address] [place] [id number] 06/08/2025 12:45 PM EST Office Visit [facility] [address] [place] [address] Jimmie Louise MD [address] [place] [address], [address] [place] [address] Scheduled Orders Name Type Priority Associated Diagnoses Orde r Schedule CT Abdomen Pelvis with IV contrast Imaging Routine Acute pancreatitis Retroperitoneal abscess Expected: 05/02/2025, Expires: 05/02/2026 documented as of this encounter Visit Diagnoses Diagnosis Acute pancreatitis- Primary Retroperitoneal abscess documented in this encounter Care Teams Bacteriologist Soil Relationship Specialty Start Date End Date Robbie Ca MD [address] [place] [address] PCP - General Family Medicine 01/21/25 Garrett Gonzalez MD [address] [place] [address] Referring Physician Gastroenterology 03/07/25 Dixon Ca MD [address] [place] [address], [address] [place] [address] Surgeon General Surgery 04/18/25 documented as of this encounter
--- OUTSIDE RECORDS SUMMARY | 2025-05-09 14:00 | XMS_ITS | Encounter Summary ---
Author Organization [facility] Address [address] [place] [address] Care Team Providers Care Vp Revenue Cycle Name Role Phone Robbie Ca MD Primary Care Provider [phone]- [phone] Garrett Gonzalez MD Unavailable [phone] Dixon Ca MD Unavailable Reason for Visit * Reason Comments Follow-up CTA results Encounter Details Date Type Department Care Team (Late st Contact Info) Description 05/09/2025 2:00 PM EST Office Visit [facility] [address] [place] [address] Dixon Ca MD [address] [place] [address], [address] [address] Acute necrotizing pancreatitis (Primary Dx) Social History Tobacco Use Types Packs/Day Years Used Date Smoking Tobacco: Never Passive Smoke Exposure: Never Smokeless Tobacco: Never Tobacco Cessation:Counseling Given: No Alcohol Use Standard Drinks/Week Comments Never 0 (1 standard drink = 0.6 oz pur e alcohol) AUDIT-C Answer Date Recorded Q1: How often do you have a drink containing alcohol? Never 05/09/2025 Q2: How many drinks containi ng alcohol do you have on a typical day when you are drinking? Patient does not drink Q3: How often do you have si x or more drinks on one occasion? Never 05/09/2025 Sex and Gender Information Value Date Recorded Sex Assigned at Not on file Legal Sex Male 5:37 AM EDT Gender Identity Not on file Sexual Orientation Not on file documented as of this encounter Last Filed Vital Signs Vital Sign Reading Time Taken Comments Blood Pressure 126/80 05/09/2025 3:26 PM EST Pulse 114 05/09/2025 3:26 PM EST Temperature - - Respiratory Rate - - Oxygen Saturation - - Inhaled Oxygen Concentration - - Weight 75.8 kg (167 lb) 05/09/2025 3:26 PM EST Height 177.8 cm (5' 10 ) 05/09/2025 3:26 PM EST Body Mass Index 23.96 05/09/2025 3:26 PM EST documented in this encounter Functional Status * AUDIT-C Score Answer Date of Assessment Author 0 05/09/2025 3:26 PM EST Reyna Lopez MA * Question Answer Date of Assessment Author Q1: How often do you have a drink containing alcohol? Never 05/09/2025 3:26 PM EST Pipo Lopez MA Q2: How many drinks containing alcohol do you have on a typical day when you are drinking? Patient does not drink 05/09/2025 3:26 PM EST Reyna Lopez MA Q3: How often do you have six or more drinks on one occasion? Never 05/09/2025 3:26 PM EST Pipo Lopez MA documented as of this encounter Progress Notes * Dixon Ca MD - 05/09/2025 2:00 PM EST Subjective Patient ID: Chandrakant Aguillon is a 34 y.o. male. Chief Complaint Patient presents with Follow-up CTA results HPI Mr. Aguillon returns for follow-up. Feeling more like himself each week. Drain output 75cc two days ago, emptied 40cc today. Not using g- or j-tube at present. Ileostomy output thickening. The following portions of the chart were reviewed this encounter and updated as appropriate: Review of Systems As above; no fevers Objective Physical Exam NAD/nontoxic Breathing nonlabored Nonfocal Alert/oriented/appropriate Abdomen nonperitoneal Incision clean/intact Drain output purulent J- and g-tube secured Assessment/Plan Continues to improve. Plan to see back next week and barring no issues or increase in output I'll pull the IR drain. Would likely take out the g-tube next and leave the j-tube for another few weeks. Mihir Ca MD documented in this encounter Plan of Treatment Upcoming Encounters Date Type Department Care Team (Late st Contact Info) Description 05/16/2025 2:30 PM EST Office Visit [facility] [address] [place] [address] [phone] Dixon Ca MD [address] [place], [place] [phone] [place] [address] 06/08/2025 12:45 PM EST Office Visit [facility] [address] [place] [address] [phone] Jimmie Louise MD [address] [place], [place] [phone] [place] [address] documented as of this encounter Visit Diagnoses Diagnosis Acute necrotizing pancreatitis- Primary documented in this encounter Care Teams Vp Revenue Cycle Relationship Specialty Start Date End Date Robbie Ca MD [address] [place], [place] [phone] PCP - General Family Medicine 01/21/25 Garrett Gonzalez MD [address] [place] [address] Referring Physician Gastroenterology 03/07/25 Dixon Ca MD [address] [place] [address] Surgeon General Surgery 04/18/25 documented as of this encounter
[2025-05-10 17:03] LABS: Hematocrit 38.4 % (42.0-52.0); Hemoglobin 11.9 g/dL (14.1-18.0); Immature Granulocytes % 0.2 %; Mean Corpuscular HGB Conc 31.0 g/dL (31.8-35.4); Mean Corpuscular Hemoglobin 27.8 pg (27.0-31.2); Mean Corpuscular Volume 89.7 fl (80-94); Nucleated Red Blood Cells % 0 %; Platelet Count 280 K/mm3 (142-424); Red Blood Count 4.28 M/mm3 (4.60-6.20); Red Cell Distribution Width-SD 46.9 fL; White Blood Count 10.0 K/mm3 (4.8-10.8)
[2025-05-10 17:27] LABS: Chloride 104 mmol/L (98-107); Potassium 4.2 mmoL/L (3.5-5.1); Sodium 137 mmol/L (136-145)
[2025-05-10 17:30] LABS: Anion Gap 15.2 mEq/L (5-15); Blood Urea Nitrogen 6 mg/dl (9-20); Calcium 8.6 mg/dl (8.4-10.2); Carbon Dioxide 22 mmol/L (22.0-30.0); Creatinine,Serum 0.70 mg/dl (0.66-1.25); Estimated Glomerular Filt Rate 128 ml/min (>60); GFR (African American) 155 ML/MIN (>60); Glucose 100 mg/dl (74-100)
--- OUTSIDE RECORDS SUMMARY | 2025-05-11 13:15 | XMS_ITS | Encounter Summary ---
Author Organization [facility] Address [address] [place] [address] Care Team Providers Care Terrazzo Mechanic Name Role Phone Robbie Ca MD Primary Care Provider [phone] Garrett Gonzalez MD Unavailable Dixon Ca MD Unavailable [phone] Reason for Referral * Consultation (Routine) - Closed Specialty Diagnoses / Procedures Referred By Contac t Referred To Contact Diagnoses Pancreatitis Procedures Enteroscopy Dalton Navarro PA [address] [place] [address] Phone: tel: fax: [address] [phone] Referral ID Status Reason Start Date Expiration Date V isits Requested Visits Authorized [id number] Closed [facility] 04/18/2025 05/18/2026 1 1 Encounter Details Date Type Department Care Team (Latest Contact Info) Description 04/18/2025 Orders Only [facility] [address] [place], [place] [phone] Dalton Navarro PA [address] [place], [place] [phone] Pancreatitis (Primary Dx) Social History Tobacco Use [...] Visit [facility] [address] [place] [address] [phone] Dixon Ca MD [address] [place] [address], [address] [place] [address] 06/08/2025 12:45 PM EST Office Visit [facility] [address] [place] [address] [phone] Jimime Louise MD [address] [place] [address], [address] [place] [address] Scheduled Orders Name Type Priority Associated Diagnoses Orde r Schedule Enteroscopy Endoscopy Routine Pancreatitis Expected: 04/18/2025 (Approximate), Expires: 04/18/2026 documented as of this encounter Visit Diagnoses Diagnosis Pancreatitis- Primary documented in this encounter Care Teams Terrazzo Mechanic Relationship Specialty Start Date End Date Robbie Ca MD [address] [place] [address] PCP - General Family Medicine 01/21/25 Garrett Gonzalez MD [address] [facility] [address] [place] [address] Referring Physician Gastroenterology 03/07/25 Dixon Ca MD [address] [place] [address] [address] [place] [address] Surgeon General Surgery 04/18/25 documented as of this encounter
--- OUTSIDE RECORDS SUMMARY | 2025-05-11 13:15 | XMS_ITS | Encounter Summary ---
Author Organization [facility] Address [address] [place] [address] Care Team Providers Care Crime Specialist Name Role Phone Robbie Ca MD Primary Care Provider [phone] Garrett Gonzalez MD Unavailable [phone] Reason for Referral * Consultation (Routine) - Closed Specialty Diagnoses / Procedures Referred By Contac t Referred To Contact Diagnoses Acute necrotizing pancreatitis Procedures ERCP Dalton Navarro PA [address] [facility] [address] [place] [address] Phone: tel: fax: [address] [phone] Referral ID Status Reason Start Date Expiration Date V isits Requested Visits Authorized [id number] Closed [facility] 03/22/2025 04/21/2026 1 1 * Consultation (Routine) - Closed Specialty Diagnoses / Procedures Referred By Contac t Referred To Contact Diagnoses Acute necrotizing pancreatitis Procedures Endoscopic ultrasonography (Upper) Dalton Navarro PA [address] [place] [address] Phone: tel: fax: [address] [phone] Referral ID Status Reason Start Date Expiration Date V isits Requested Visits Authorized [id number] [facility] 03/22/2025 04/21/2026 1 1 Encounter Details Date Type Department Care Team (Latest Contact Info) Description 03/22/2025 Orders Only [facility] [address] [facility] [address] [place] [address] Dalton Navarro PA [address] [facility] [address] [place] [address] Acute necrotizing pancreatitis (Primary Dx) Social History [...] Description 05/16/2025 2:30 PM EST Office Visit [facility] [address] [place] [address] Dixon Ca MD [address] [place] [phone] 06/08/2025 12:45 PM EST Office Visit [facility] [address] [place] [address] Jimmie Louise MD [address] [place] [phone] Scheduled Orders Name Type Priority Associated Diagnoses Orde r Schedule Endoscopic ultrasonography (Upper) Endoscopy Routine Acute necrotizing pancreatitis Expected: 03/22/2025 (Approximate), Expires: 03/22/2026 ERCP Endoscopy Routine Acute necrotizing pancreatitis Expected: 03/22/2025 (Approximate), Expires: 03/22/2026 documented as of this encounter Visit Diagnoses Diagnosis Acute necrotizing pancreatitis- Primary documented in this encounter Care Teams Crime Specialist Relationship Specialty Start Date End Date Robbie Ca MD [address] [place] [address] PCP - General Family Medicine 01/21/25 Garrett Gonzalez MD [address] [phone] Referring Physician Gastroenterology 03/07/25 documented as of this encounter
--- OUTSIDE RECORDS SUMMARY | 2025-05-11 13:15 | XMS_ITS ---
Author Organization Unknown ENCOUNTERS Encounter Performer Location Date Diagnosis Diagnosis Status Emergency [place] [id number] [facility] [address] [place] [address] [id number] REINA *Note: Encounters from your own facility or health system may be excluded. Allergies, Adverse Reactions, Alerts Allergen Type Severity Identification Date Penicillins drug allergy 0 [id number] Sulfa (Sulfonamide Antibiotics) drug allergy 0 [id number] Medications Name Date Quantity Days Supplied GPI Number
--- OUTSIDE RECORDS SUMMARY | 2025-05-11 13:15 | XMS_ITS | Encounter Summary ---
Author Organization [facility] Address [address] [place] [address] Care Team Providers Care Filament Cutter Name Role Phone Robbie Ca MD Primary Care Provider [phone] Garrett Gonzalez MD Unavailable [phone] Dixon Ca MD Unavailable [phone] Reason for Visit * Reason Onset Date Comments Hospital Follow Up 05/02/2025 Encounter Details Date Type Department Care Team (Late st Contact Info) Description 05/02/2025 Telephone [facility] [address] [facility] [address] [place], [place] [phone] Katia Carranza RN Hospital Follow Up Social [...] 1990 Date of Discharge: 04/29/2025 Facility Discharged: [facility] Diagnosis at time of Discharge: 1. Leukocytosis D72.829 2. Pancreatitis K85.90 3. Acute kidney injury N17.9 4. Abdominal pain R10.9 5. Vomiting R11.10 6. Hyponatremia E87.1 Date of Call: 05/02/2025 Date of [facility] Face-to Face Visit: Call Status Call Status: [...] Visit [facility] [address] [place] [address] Dixon Ca MD [address] [place] [address], [address] [address] 06/08/2025 12:45 PM EST Office Visit [facility] [address] [place] [address] Jimmie Louise MD [address] [place] [address], [address] [address] documented as of this encounter Visit Diagnoses Not on filedocumented in this encounter Care Teams Filament Cutter Relationship Specialty Start Date End Date Robbie Ca MD [address] [place] [address] PCP - General Family Medicine 01/21/25 Garrett Gonzalez MD [address] [address] Referring Physician Gastroenterology 03/07/25 Dixon Ca MD [address] [facility] [place] [address] Surgeon General Surgery 04/18/25 documented as of this encounter
--- OUTSIDE RECORDS SUMMARY | 2025-05-11 13:15 | XMS_ITS | Encounter Summary ---
Author Organization [facility] Address [address] [facility] [address] [place] [address] Care Team Providers Care Sharepoint Administrator Name Role Phone Robbie Ca MD Primary Care Provider [phone] Garrett Gonzalez MD Unavailable [phone] Dixon Ca MD Unavailable [phone] Encounter Details Date Type Department Care Team (Late st Contact Info) Description 05/02/2025 Orders Only [facility] [address] [place] [address] [phone] Jimmie Louise MD [address] [place] [address], [address] [place] [address] Social History Tobacco Use Types [...] Department Care Team (Late Contact Info) Description 05/16/2025 2:30 PM EST Office Visit [facility] [address] [facility] [address] [place] [address] Dixon Ca MD [address] [place] [address], [address] [place] [address] 06/08/2025 12:45 PM EST Office Visit [facility] [address] [place] [address] [address] [place], [place] [phone] Jimmie Louise MD [address] [place] [address], [address] [place] [address] documented as of this encounter Visit Diagnoses Not on filedocumented in this encounter Care Teams Sharepoint Administrator Relationship Specialty Start Date End Date Robbie Ca MD [address] [place] [address] [phone] PCP - General Family Medicine 01/21/25 Garrett Gonzalez MD [address] [place] [address] [address] [place] [address] Referring Physician Gastroenterology 03/07/25 Dixon Ca MD [address] [place] [address], [address] [place] [address] Surgeon General Surgery 04/18/25 documented as of this encounter
--- OUTSIDE RECORDS SUMMARY | 2025-05-11 13:15 | XMS_ITS | Clinical Summary ---
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 signed by POHNG TREVINO MD-[facility] Verified: 02/25/25 Signing Location: [facility], [address] [place] [address] GROSS DESCRIPTION: 0.5 cc of macias specimen received fresh 1 ThinPrep (pap stain) and 1 cell block (2 H&E, 4 Unstained) _ TAS/RW /RW DISCLAIMER: I attest that I examined the relevant preparations for the specimens and rendered the diagnosis(es). CPT: 34604, 10634 Selected block for future studies: _ Technical testing performed at [facility], [address] [place] [address] Report Request ID: [id number] 02/25/2025 12:38 [place] [address]- Patient: JENNIFER AGUILLON : 1990 34 years Gender: Male Account: [id number] Admit: 02/10/2025 05:50 EDT Discharge: Admitting: SOPHIE BORDEN MD-INT Attending: SOPHIE BORDEN MD-INT Pathology Reports Received: 02/24/2025 08:51 EDT DISCLAIMER: Test systems have been developed and their performance characteristics determined by the [facility] ([facility]). Some tests have not been cleared or [...] digital images (whole slide images) on the NetTalon Digital Pathology Platform validated at [facility]. Report Request ID: [id number] 02/25/2025 12:38 EDT us Garrett Gonzalez MD LAB CYTOLOGY ORDERABLES Final Result [facility] [address] [place] [address], [place] * Procedure Scanned Result (02/10/2025 9:59 AM EDT) us Historical Provider MD IN CLINIC/BEDSIDE ORDERAB LES Edited Result - Final from Last 3 Months Insurance EXCHANGE AMBETTER Care Teams Economic Geographer Relationship Specialty Start Date End Date Robbie Ca MD [address] [place] [address] [id number] PCP - General Family Medicine 01/21/25 Garrett Gonzalez MD 225 [facility] [address] [place] [address] Referring Physician Gastroenterology 03/07/25 Dixon Ca MD [address] [facility], [address] [place] [address] Surgeon General Surgery 04/18/25
--- OUTSIDE RECORDS SUMMARY | 2025-05-11 13:15 | XMS_ITS | Encounter Summary ---
Author Organization [facility] Address [address] [place] [address] Care Team Providers Care Vehicle Care Specialist Name Role Phone Robbie Ca MD Primary Care Provider [phone] Garrett Gonzalez MD Unavailable [phone] Dixon Ca MD Unavailable [phone] Reason for Visit * Reason Onset Date Comments Procedure 03/21/2025 Encounter Details Date Type Department Care Team (Late st Contact Info) Description 03/21/2025 Telephone [facility] [address] [place], [place] [phone] Garrett Gonzalez MD [address] [facility] [address] [place] [address] Procedure Social History Tobacco Use Types Packs/Day Years Used Date Smoking Tobacco: Never Assessed Sex and Gender Information Value Date Recorded Sex Assigned at Not on file Legal Sex Male 5:37 AM EDT Gender Identity Not on file Sexual Orientation Not on file documented as of this encounter Miscellaneous Notes * Telephone Encounter - Karissa Hoang - 04/18/2025 1:56 PM EDT [facility] is calling back to have patients stents removed Rasheeda from [place] [phone] * Telephone Encounter - Kathy Crain LPN - 03/23/2025 9:02 AM EDT Orders placed yesterday by provider Dalton Navarro documented in this encounter Plan of Treatment Upcoming Encounters Date Type Department Care Team (Late st Contact Info) Description 05/16/2025 2:30 PM EST Office Visit [facility] [address] [place] [address] [phone] Dixon Ca MD [address] [place] [address], [address] [place] [address] 06/08/2025 12:45 PM EST Office Visit [facility] [address] [place] [address] Jimmie Louise MD [address] [place] [address], [address] [place] [phone] documented as of this encounter Visit Diagnoses Not on filedocumented in this encounter Care Teams Vehicle Care Specialist Relationship Specialty Start Date End Date Robbie Ca MD [address] [place] [address] PCP - General Family Medicine 01/21/25 Garrett Gonzalez MD [address] [facility] [address] [place] [address] Referring Physician Gastroenterology 03/07/25 Dixon Ca MD [address] [place] [address] [address] [place] [address] Surgeon General Surgery 04/18/25 documented as of this encounter
--- OUTSIDE RECORDS SUMMARY | 2025-05-11 13:15 | XMS_ITS | Clinical Summary ---
Author Organization [facility] Address [address] [place] [address] Phone Care Team Providers Care Seafood Specialist Name Role Phone Unavailable Unavailable Conditions or Problems No information available. Medications No information available. Medications Administered No information available. Allergies, Adverse Reactions, Alerts No information available. Results No information available. Plan of Care No information available. Procedures No information available. Vital Signs No information available. Immunizations No information available. Advance Directives No information available.
--- OUTSIDE RECORDS SUMMARY | 2025-05-11 13:15 | XMS_ITS | Clinical Summary ---
Author Organization [facility] Address [address] [place] [address] Care Team Providers Care Light Industrial Supervisor Name Role Phone Robbie Ca MD Primary Care Provider [phone] Allergies Active Allergy Reactions Criticality Noted Date [...] - 02/10/2025 4:11 AM EDT Hospital Encounter [address] [place] [phone] Vipul Alves DO Gay, Bryce, DO Burgess, [...] drink = 0.6 oz pur e alcohol) [facility] Utilities Answer Date Recorded In the past 12 months has [employer], gas, oil, or water [employer] threatened to shut off services in your [...] and heating? Not hard at all 12/21/2024 [facility] [place] of Occupat ional Health - Occupational Stress [...] GED or equivalent No 12/21/2024 Preferred Language Guamanian 12/21/2024 PHQ-2 Answer Date Recorded Patient Health [...] this topic Medical Devices Implanted Type Area Cq Developer Device Identifier Shelf Expiration Date Model / Serial / Lot Clipapplr M/ Endo Ligaclip Rot 10mm /Lg - [id number] Implanted:Qty : 1 on 12/23/2024 by Yefri Heller MD at [facility] Implant N/A: Abdomen [employer] [employer] [facility] [employer] [facility] [employer] [facility] [id number] 08/20/2029 [id number] / / [id number] Procedures Procedure [...] AUTO DIFFERENTIAL Routine 02/08/2025 3:02 AM EDT HEPATITIS PANEL, ACUTE Add-On 4:53 PM EDT from Last 3 Months or Most Recently Relevant to Health Maintenance Results * (ABNORMAL) POC Glucose Q6H (02/10/2025 12:22 AM EDT) Only the most recent of7 resultswithin the time period is included. Glucose 139(H) 70 - 130 mg/dL 02/10/2025 12:24 AM EDT [facility] Comment:Serial Number: [id number]: [id number] Blood 02/10/2025 12:2 2 AM EDT 02/10/2025 12:24 AM EDT Cheri Munguia MD POINT OF CARE TEST ORDERABLES Fi nal Result Performing Organization Address [facility]/ZIP Co de Phone Number [facility]
[address] [place] [address], * Body Fluid Culture - Body Fluid, Retroperitoneum (02/09/2025 2:20 PM EDT) Only the most recent of2 resultswithin the time period is included. Body Fluid Culture No growth at 3 days 02/12/2025 10:02 AM EDT [facility] Gram Stain No WBCs or organisms seen 02/12/2025 10:02 AM EDT [facility] Body Fluid Retroperitoneal compartment structure / Unknown Collection / Unknown 02/09/2025 2:20 PM EDT 02/09/2025 3:18 PM EDT Jose De Jesus Shaw MD MICROBIOLOGY - GENERAL ORD ERABLES Final Result [facility]
[address] [place] [address], [facility]
[address] [place] [address], * (ABNORMAL) CBC Auto Differential (02/09/2025 3:39 AM EDT) Only the most recent of2 resultswithin the time period is included. WBC 10.65 3.40 - 10.80 10*3/mm3 02/09/2025 6:48 AM EDT [facility] RBC 3.19(L) 4.14 - 5.80 10*6/mm3 02/09/2025 6:48 AM EDT [facility] Hemoglobin 9.0(L) 13.0 - 17.7 g/dL 02/09/2025 6:48 AM EDT [facility] Hematocrit 29.1(L) 37.5 - 51.0 % 02/09/2025 6:48 AM EDT [facility] MCV 91.2 79.0 - 97.0 fL 02/09/2025 6:48 AM EDT [facility] MCH 28.2 26.6 - 33.0 pg 02/09/2025 6:48 AM EDT [facility] MCHC 30.9(L) 31.5 - 35.7 g/dL 02/09/2025 6:48 AM EDT [facility] RDW 22.0(H) 12.3 - 15.4 % 02/09/2025 6:48 AM EDT [facility] RDW-SD 70.1(H) 37.0 - 54.0 fl 02/09/2025 6:48 AM EDT [facility] MPV 9.9 6.0 - 12.0 fL 02/09/2025 6:48 AM EDT [facility] Platelets 210 140 - 450 10*3/mm3 02/09/2025 6:48 AM EDT [facility] Blood Venipuncture / Unknown 02/09/2025 3:39 AM EDT 02/09/2025 4:35 AM EDT [facility] - 02/09/2025 6:48 AM EDT The previously reported component NRBC is no longer being reported. Previous result was 0.0 /100 WBC (Reference Range: 0.0-0.2 /100 WBC) on 02/09/2025 at 0447 EDT. us Oli Cochran DO LAB BLOOD ORDERABLES Final Res ult [facility]
[address] [place] [address], * (ABNORMAL) Manual Differential (02/09/2025 3:39 AM EDT) Only the most recent of2 resultswithin the time period is included. Neutrophil % 66.0 42.7 - 76.0 % 02/09/2025 6:48 AM EDT [facility] Lymphocyte % 4.0(L) 19.6 - 45.3 % 02/09/2025 6:48 AM EDT [facility] Monocyte % 9.0 5.0 - 12.0 % 02/09/2025 6:48 AM EDT [facility] Eosinophil % 2.0 0.3 - 6.2 % 02/09/2025 6:48 AM EDT [facility] Basophil % 1.0 0.0 - 1.5 % 02/09/2025 6:48 AM EDT [facility] Bands % 15.0(H) 0.0 - 5.0 % 02/09/2025 6:48 AM EDT [facility] Atypical Lymphocyte % 3.0 0.0 - 5.0 % 02/09/2025 6:48 AM EDT [facility] Neutrophils Absolute 8.63(H) 1.70 - 7.00 10*3/mm3 02/09/2025 6:48 AM EDT [facility] Lymphocytes Absolute 0.75 0.70 - 3.10 10*3/mm3 02/09/2025 6:48 AM EDT [facility] Monocytes Absolute 0.96(H) 0.10 - 0.90 10*3/mm3 02/09/2025 6:48 AM EDT [facility] Eosinophils Absolute 0.21 0.00 - 0.40 10*3/mm3 02/09/2025 6:48 AM EDT [facility] Basophils Absolute 0.11 0.00 - 0.20 10*3/mm3 02/09/2025 6:48 AM EDT [facility] Anisocytosis Slight/1+ None Seen 02/09/2025 6:48 AM EDT [facility] Smudge Cells Slight/1+ None Seen 02/09/2025 6:48 AM EDT [facility] Vacuolated Neutrophils Slight/1+ None Seen 02/09/2025 6:48 AM EDT [facility] Clumped Platelets Present None Seen 02/09/2025 6:48 AM EDT [facility] Blood Venipuncture / Unknown 02/09/2025 3:39 AM EDT 02/09/2025 4:35 AM EDT us Oli Cochran LAB BLOOD ORDERABLES Final Res ult [facility]
[address] [place] [address], * Magnesium (02/09/2025 3:39 AM EDT) Only the most recent of2 resultswithin the time period is included. Magnesium 1.7 1.6 - 2.6 mg/dL 02/09/2025 5:14 AM EDT [facility] Blood Venipuncture / Unknown 02/09/2025 3:39 AM EDT 02/09/2025 4:38 AM EDT us Oli Cochran LAB BLOOD ORDERABLES Final Res ult [facility]
[address] [place] [address], [place] [phone] * (ABNORMAL) Comprehensive Metabolic Panel (02/09/2025 3:39 AM EDT) Only the most recent of2 resultswithin the time period is included. Glucose 126(H) 65 - 99 mg/dL 02/09/2025 5:14 AM EDT [facility] BUN 14.6 6.0 - 20.0 mg/dL 02/09/2025 5:14 AM [facility] Creatinine 0.72(L) 0.76 - 1.27 mg/dL 02/09/2025 5:14 AM [facility] Sodium 127(L) 136 - 145 mmol/L 02/09/2025 5:14 AM [facility] Potassium 4.1 3.5 - 5.2 mmol/L 02/09/2025 5:14 AM [facility] Comment:Specimen hemolyzed. Result may be falsely elevated. Chloride 98 98 - 107 mmol/L 02/09/2025 5:14 AM [facility] CO2 22.5 22.0 - 29.0 mmol/L 02/09/2025 5:14 AM [facility] Calcium 7.1(L) 8.6 - 10.5 mg/dL 02/09/2025 5:14 AM [facility] Total Protein 5.2(L) 6.0 - 8.5 g/dL 02/09/2025 5:14 AM [facility] Albumin 1.8(L) 3.5 - 5.2 g/dL 02/09/2025 5:14 AM [facility] ALT (SGPT) 20 1 - 41 U/L 02/09/2025 5:14 AM [facility] AST (SGOT) 34 1 - 40 U/L 02/09/2025 5:14 AM [facility] Alkaline Phosphatase 185(H) 39 - 117 U/L 02/09/2025 5:14 AM [facility] Total Bilirubin 0.5 0.0 - 1.2 mg/dL 02/09/2025 5:14 AM [facility] Globulin 3.4 gm/dL 02/09/2025 5:14 AM [facility] Comment:Calculated Result A/G Ratio 0.5 g/dL 02/09/2025 5:14 AM [facility] BUN/Creatinine Ratio 20.3 7.0 - 25.0 02/09/2025 5:14 AM EDT [facility] Anion Gap 6.5 5.0 - 15.0 mmol/L 02/09/2025 5:14 AM EDT [facility] eGFR 122.2 >60.0 mL/min/1.7 3 02/09/2025 5:14 AM EDT [facility] Blood Venipuncture / Unknown 02/09/2025 3:39 AM EDT 02/09/2025 4:38 AM EDT Narrative [facility] - 02/09/2025 5:14 AM EDT GFR [...] does not include race as a factor Oli Cochran DO LAB BLOOD ORDERABLES Final Res ult [facility]
[address] [place] [address], * Hepatitis Panel, Acute (12/19/2024 4:53 PM EDT) Hepatitis B Surface Ag Non-Reacti ve Non-Reacti ve 12/21/2024 1:08 PM EDT [facility] Hep A IgM Non-Reacti ve Non-Reacti ve 12/21/2024 1:08 PM EDT [facility] Hep B C IgM Non-Reacti ve Non-Reacti ve 12/21/2024 1:08 PM EDT [facility] Hepatitis C Ab Non-Reacti ve Non-Reacti ve 12/21/2024 1:08 PM EDT [facility] Blood Venipuncture / Unknown 12/19/2024 4:53 PM EDT 12/19/2024 5:02 PM EDT Narrative [facility] - 12/21/2024 1:08 PM EDT Results may be falsely decreased if patient taking Biotin. us Leoncio Pastrana MD LAB BLOOD ORDERABLES Final Res ult [facility]
[address] [place] [address], from Last 3 Months or Most Recently Relevant to Health Maintenance Insurance [employer] [place] EXCHANGE Advance Directives * CPR (Attempt to [...] Of Support Discussed With: Patient Care Teams Light Industrial Supervisor Relationship Specialty Start Date End Date Robbie Ca MD [address] [place] [address] [place] [address] PCP - General Family Medicine 12/19/24
--- OUTSIDE RECORDS SUMMARY | 2025-05-11 13:16 | XMS_ITS | Encounter Summary ---
Author Organization [facility] Address [address] [place] [address] Care Team Providers Care Parking Lot Attendant And Cashier Name Role Phone Robbie Ca MD Primary Care Provider [phone] Garrett Gonzalez MD Unavailable [phone] Dixon Ca MD Unavailable [phone] Reason for Referral * Imaging (Routine) - Pending Review Specialty Diagnoses / Procedures Referred By Contac t Referred To Contact Diagnoses Pancreatitis Procedures CT Abdomen Pelvis with IV contrast Jimmie Louise MD [address] [place] [address], [address] [place] [address] Phone: tel: fax: Jimmie Louise MD [address] [place] [address], [address] [place] [address] Phone: tel: fax: Referral ID Status Reason Start Date Expiration Date Visits Requested Visits Authorized [id number] Pending Review [facility] 06/01/2026 1 1 Encounter Details Date Type Department Care Team (Late st Contact Info) Description 05/02/2025 Orders Only [facility] [address] [facility] [facility] [address] [place] [address] Jimmie Louise MD [address] [place] [address], [address] [place] [address] Pancreatitis (Primary Dx) Social History Tobacco [...] Description 05/16/2025 2:30 PM EST [facility] [address] [phone] Dixon Ca MD [address] [place] [address] [address] [place] [address] 06/08/2025 12:45 PM EST Office Visit [facility] [address] [place] [address] Jimmie Louise MD [address] [place] [address], [address] [place] [address] Scheduled Orders Name Type Priority Associated Diagnoses Orde r Schedule CT Abdomen Pelvis with IV contrast Imaging Routine Pancreatitis Expected: 05/02/2025 (Approximate), Expires: 05/02/2026 documented as of this encounter Visit Diagnoses Diagnosis Pancreatitis- Primary documented in this encounter Care Teams Parking Lot Attendant And Cashier Relationship Specialty Start Date End Date Robbie Ca MD [address] [place] [address] PCP - General Family Medicine 01/21/25 Garrett Gonzalez MD [address] [phone] Referring Physician Gastroenterology 03/07/25 Dixon Ca MD [address] [place] [address], [address] [place] [address] Surgeon General Surgery 04/18/25 documented as of this encounter
--- OUTSIDE RECORDS SUMMARY | 2025-05-11 13:16 | XMS_ITS | Encounter Summary ---
Author Organization [facility] Address [address] [place] [address] Care Team Providers Care Molasses And Caramel Operator Name Role Phone Robbie Ca MD Primary Care Provider [phone] Garrett Gonzalez MD Unavailable [phone] Dixon Ca MD Unavailable [phone] Encounter Details Date Type Department Care Team [...] Description 05/16/2025 2:30 PM EST Office Visit [facility] [address] [address] Dixon Ca MD [address] [place] [address], [address] [place] [address] 06/08/2025 12:45 PM EST Office Visit [facility] [address] [place] [address] Jimmie Louise MD [address] [place] [address], [address] [place] [address] documented as of this encounter Visit Diagnoses Not on filedocumented in this encounter Care Teams Molasses And Caramel Operator Relationship Specialty Start Date End Date Robbie Ca MD [address] [place] [address] PCP - General Family Medicine 01/21/25 Garrett Gonzalez MD [address] [address] Referring Physician Gastroenterology 03/07/25 Dixon Ca MD [address] [facility] [place] [address] Surgeon General Surgery 04/18/25 documented as of this encounter
--- OUTSIDE RECORDS SUMMARY | 2025-05-11 13:16 | XMS_ITS | Encounter Summary ---
Author Organization [facility] Address [address] [place] [address] Care Team Providers Care Hazard Waste Handler Name Role Phone Robbie Ca MD Primary Care Provider [phone] Garrett Gonzalez MD Unavailable [phone] Dixon Ca MD Unavailable [phone] Encounter Details Date Type Department Care Team [...] Description 05/16/2025 2:30 PM EST [facility] [address] [facility] [address] [place], [place] [phone] Dixon Ca MD [address] [place] [address], [address] [place] [address] 06/08/2025 12:45 PM EST [facility] [address] [place] [address] Jimmie Louise MD [address] [place] [address], [address] [place] [address] documented as of this encounter Visit Diagnoses Not on filedocumented in this encounter Care Teams Hazard Waste Handler Relationship Specialty Start Date End Date Robbie Ca MD [address] [place] [address] PCP - General Family Medicine 01/21/25 Garrett Gonzalez MD [address] [facility] [address] [place] [address] Referring Physician Gastroenterology 03/07/25 Dixon Ca MD [address] [facility] [place] [address] Surgeon General Surgery 04/18/25 documented as of this encounter
--- OUTSIDE RECORDS SUMMARY | 2025-05-11 13:16 | XMS_ITS | Encounter Summary ---
Author Organization [facility] Address [address] [place] [address] Care Team Providers Care Tipple Operator Name Role Phone Robbie Ca MD Primary Care Provider [phone] Garrett Gonzalez MD Unavailable [phone] Dixon Ca MD Unavailable [phone] Reason for Visit * Reason Onset Date Comments Appointment 05/09/2025 Encounter Details Date Type Department Care Team (Late st Contact Info) Description 05/09/2025 Telephone [facility] [address] [facility] [address] [place] [address] Jimmie Louise MD [address] [place] [address], [address] [place] [address] Appointment Social History Tobacco Use Types Packs/Day Years Used Date Smoking Tobacco: Never Passive Smoke Exposure: Never Smokeless Tobacco: Never Alcohol Use Standard [...] on file documented as of this encounter Functional Status * AUDIT-C Score Answer Date of Assessment Author 0 05/09/2025 3:26 PM Reyna Rodriguez MA * Question Answer Date of Assessment Author Q1: How often do you have a drink containing alcohol? Never 05/09/2025 3:26 PM EST Pipo Lopez MA Q2: How many drinks containing alcohol do you have on a typical day when you are drinking? Patient does not drink 05/09/2025 3:26 PM Reyna Rodriguez MA Q3: How often do you have six or more drinks on one occasion? Never 05/09/2025 3:26 PM EST Pipo Lopez MA documented as of this encounter Miscellaneous Notes * Telephone Encounter - Meir Ho RN - 05/10/2025 11:[address] and clinic visit being scheduled. Spoke to * Telephone Encounter - Karissa Hoang - 05/09/2025 10:31 AM EST Call Back Number: [phone] Person calling (patient/caregiver/facility/etc): Pts Patient's provider: DR Louise Brief description of call: Pt needs a 4 week f/u for procedure that was preformed on 04/26. I checked Dr Louise's schedule and nothing is available. Please advise PT also wants to know if the clinic received ct of the abdomin If request is urgent, was a warm transfer to the clinic attempted? []Yes []No If yes, please document the outcome of the warm transfer: If the caller reports any of the following symptoms for an established patient STOP and WARM transfer to the office: Nausea/vomiting Abdominal pain Line issues GI bleeding - rectal bleeding; vomiting blood documented in this encounter Plan of Treatment Upcoming Encounters Date Type Department Care Team (Late st Contact Info) Description 05/16/2025 2:30 PM EST Office Visit [facility] [address] [id number] Dixon Ca MD [address] [place] [address], [address] [place] [address] 06/08/2025 12:45 PM EST Office Visit [facility] [address] [place] [address] [address] [place] [address] Jimmie Louise MD [address] [place] [address], [address] [place] [address] documented as of this encounter Visit Diagnoses Not on filedocumented in this encounter Care Teams Tipple Operator Relationship Specialty Start Date End Date Robbie Ca MD [address] [place] [address] [id number] PCP - General Family Medicine 01/21/25 Garrett Gonzalez MD [address] [place] [address] [address] [place] [address] Referring Physician Gastroenterology 03/07/25 Dixon Ca MD [address] [place] [address] [address] [place] [address] Surgeon General Surgery 04/18/25 documented as of this encounter
--- OUTSIDE RECORDS SUMMARY | 2025-05-11 13:16 | XMS_ITS | Encounter Summary ---
Author Organization [facility] Address [address] [place] [address] Care Team Providers Care Student Services Representative Name Role Phone Robbie Ca MD Primary Care Provider [phone] Garrett Gonzalez MD Unavailable [phone] Dixon Ca MD Unavailable [phone] Encounter Details Date Type Department Care Team (Latest Contact Info) Description 05/06/2025 Travel Social History Tobacco Use Types Packs/Day [...] Description 05/16/2025 2:30 PM EST Office Visit [facility] [address] [facility] [address] [place], [place] [id number] Dixon Ca MD [address] [place] [address], [address] [place] [address] 06/08/2025 12:45 PM EST Office Visit [facility] [address] [place] [address] Jimmie Louise MD [address] [place] [address], [address] [place] [address] documented as of this encounter Visit Diagnoses Not on filedocumented in this encounter Care Teams Student Services Representative Relationship Specialty Start Date End Date Robbie Ca MD [address] [place] [address] PCP - General Family Medicine 01/21/25 Garrett Gonzalez MD [address] [facility] [address] [place] [address] Referring Physician Gastroenterology 03/07/25 Dixon aC MD [address] [facility], [address] [place] [address] Surgeon General Surgery 04/18/25 documented as of this encounter
--- OUTSIDE RECORDS SUMMARY | 2025-05-11 13:16 | XMS_ITS | Encounter Summary ---
Author Organization [facility] Address [address] [facility] [address] [place] [address] Care Team Providers Care Pipe Line Gauger Name Role Phone Robbie Ca MD Primary Care Provider [phone] Garrett Gonzalez MD Unavailable [phone] Dixon Ca MD Unavailable [phone] Encounter Details Date Type Department Care Team (Latest Contact Info) Description 05/09/2025 Travel Social History Tobacco Use Types Packs/Day [...] drink containing alcohol? Never 05/09/2025 3:26 PM Pipo Rodriguez MA Q2: How many drinks containing alcohol do you have on a typical day when you are drinking? Patient does not drink 05/09/2025 3:26 PM EST Reyna Lopez MA Q3: How often do you have six or more drinks on one occasion? Never 05/09/2025 3:26 PM EST Pipo Lopez MA documented as of this encounter Plan of Treatment Upcoming Encounters Date Type Department Care Team (Late st Contact Info) Description 05/16/2025 2:30 PM EST Office Visit [facility] [address] [place] [address] [address] [place] [address] Dixon Ca MD [address] [place] [address], [address] [place] [address] 06/08/2025 12:45 PM EST Office Visit [facility] [address] [place] [address] Jimmie Louise MD [address] [place] [address] [address] [place] [address] documented as of this encounter Visit Diagnoses Not on filedocumented in this encounter Care Teams Pipe Line Gauger Relationship Specialty Start Date End Date Robbie Ca MD [address] [place] [address] PCP - General Family Medicine 01/21/25 Garrett Gonzalez MD [address] [place] [address] Referring Physician Gastroenterology 03/07/25 Dixon Ca MD [address] [place] [address] [address] [place] [address] Surgeon General Surgery 04/18/25 documented as of this encounter
== END 2025-05-10 23:59 | disposition home or self-care (01) ==
LOC: LAB.DROPOF 05-11 12:20
PROVIDERS: PCP Family Medicine; Visit Provider Family Medicine
DX: K85.91 Acute pancreatitis with uninfected necrosis, unspecified (principal)
CPT/HCPCS: 80048; 85025

== ENCOUNTER 2025-06-13 12:00 | Outpatient (CLI) | payer OTHER, SELFPAY ==
--- OUTSIDE RECORDS SUMMARY | 2025-05-02 14:15 | XMS_ITS | Encounter Summary ---
Author Organization [facility] Address [address] [facility] [address] [place] [address] Care Team Providers Care Director Law Enforcement Name Role Phone Robbie Ca MD Primary Care Provider [phone] Garrett Gonzalez MD Unavailable [phone] Dixon Ca MD Unavailable [phone] Reason for Referral * Imaging (Routine) - Authorized Specialty Diagnoses / Procedures Referred By Contac t Referred To Contact Diagnoses Acute pancreatitis Retroperitoneal abscess Procedures CT Abdomen Pelvis with IV contrast Dixon Ca MD [address] [facility] [place] [address] Phone: tel: fax: [facility] [address] [place] [facility] [address] [place] [address] Phone: tel: fax: Referral ID Status Reason Start Date Expiration Date Visits Requested Visits Authorized [id number] Authorized Patient Preference: Facility/Pr ovider 05/02/2025 06/01/2026 1 1 Reason for Visit * Reason Comments Post-op Gallbladder/pancreat itis. * Consultation (Routine) - Pending Review Specialty Diagnoses / Procedures Referred By Contac t Referred To Contact General Surgery Diagnoses Gallbladder problem Referral ID Status Reason Start Date Expiration Date V isits Requested Visits Authorized [id number] Pending Review 04/18/2025 05/18/2026 1 1 Encounter Details Date Type Department Care Team (Late st Contact Info) Description 05/02/2025 2:15 PM EST Office Visit [facility] [address] [place] [address] Dixon Ca MD [address] [place] [address], [address] [place] [address] Acute pancreatitis (Primary Dx); Retroperitoneal [...] MD - 05/02/2025 2:15 PM EST [facility] NOTE Patient: [...] follow-ups on file. Reyna Rosenberg MD [facility] 05/02/2025 This patient was [...] Care Team (Late st Contact Info) Description 07/04/2025 1:00 PM EST Office Visit [facility] [place] [address] Dixon Ca MD [address] [place] [address] documented as of this encounter Procedures Procedure Name Priority Date/Time Associated Diagnosis Comments CT ABDOMEN PELVIS W CONTRAST Routine 06/08/2025 11:11 AM EST Acute pancreatitis Retroperitoneal abscess documented in this encounter Results * CT Abdomen Pelvis with IV contrast (06/08/2025 11:11 AM EST) Anatomical Region Laterality Modality Body, Pelvis, Abdomen Computed T omography Other 06/08/2025 11:1 1 AM EST Narrative 06/08/2025 11:35 AM EST ACCESSION NUMBER: [id number] DATE: 06/08/2025 11:11 EXAMINATION: CT Abdomen Pelvis W PROVIDED INDICATION: Acute Pancreaitis, Retroperitoneal fluid collection,abcess: Acute Pancreaitis, Retroperitoneal fluid collection,abcess TECHNIQUE: Multiple axial CT images of the abdomen and pelvis were obtained after injection of IV contrast. COMPARISON: 04/27/2025 FINDINGS: Tubes/Lines: None. Included lower chest: Normal. Liver: 1 cm simple cyst in the liver. Biliary: Cholecystectomy. Pancreas: Pancreas is normal in morphology. Mild peripancreatic stranding and scarring is seen. A double-J stent is seen between the stomach and the anterior pararenal space. No fluid is seen. Spleen: Normal. Adrenal glands: Normal. Gastrointestinal: No evidence of bowel distention. Right mid abdominal ileostomy. Peritoneum: Normal. Urinary tract: Normal. Retroperitoneum: Previously drained fluid collection adjacent to the right psoas muscle has reaccumulated after removal of the previously placed pigtail catheter. It measures 4 x 5.7 x 10.2 cm. It has enhancing alicea suggestive of a possible abscess. It is burrowing into the external paraspinal muscles on the right. Reproductive: Prostate and seminal vesicles are normal. Lymph node regions: Normal. Vessels: Abdominal aorta shows atherosclerotic calcifications with normal caliber. Body wall: Normal. Bones: Degenerative changes are seen in the lumbar spine. IMPRESSION: 1. Reaccumulation of previously drained right retroperitoneal fluid collection as described above. Abscess cannot be ruled out. 2. No new collection is identified. 3. Improving sequela of acute pancreatitis. Dictated by: Paul Shay MD Signed by Paul Shay MD on 06/13/2025 17:04 ##### Final ##### Dictated by: PAUL SHAY MD-RAD Dictated DT/TM: 06/13/2025 5:04 pm Interpreted and electronically signed by: PAUL SHAY MD-RAD Signed DT/TM: 06/13/2025 5:04 pm Procedure Note Paul Shay MD - 06/13/2025 ACCESSION NUMBER: [id number] DATE: 06/08/2025 11:11 EXAMINATION: CT Abdomen Pelvis W PROVIDED INDICATION: Acute Pancreaitis, Retroperitoneal fluidcollection,abcess: Acute Pancreaitis, Retroperitoneal fluidcollection,abcess TECHNIQUE: Multiple axial CT images of the abdomen and pelvis wereobtained after injection of IV contrast. COMPARISON: 04/27/2025 FINDINGS: Tubes/Lines: None. Included lower chest: Normal. Liver: 1 cm simple cyst in the liver. Biliary: Cholecystectomy. Pancreas: Pancreas is normal in morphology. Mild peripancreatic strandingand scarring is seen. A double-J stent is seen between the stomach and theanterior pararenal space. No fluid is seen. Spleen: Normal. Adrenal glands: Normal. Gastrointestinal: No evidence of bowel distention. Right mid abdominalileostomy. Peritoneum: Normal. Urinary tract: Normal. Retroperitoneum: Previously drained fluid collection adjacent to the rightpsoas muscle has reaccumulated after removal of the previously placedpigtail catheter. It measures 4 x 5.7 x 10.2 cm. It has enhancing wallssuggestive of a possible abscess. It is burrowing into the externalparaspinal muscles on the right. Reproductive: Prostate and seminal vesicles are normal. Lymph node regions: Normal. Vessels: Abdominal aorta shows atherosclerotic calcifications with normalcaliber. Body wall: Normal. Bones: Degenerative changes are seen in the lumbar spine. IMPRESSION: 1. Reaccumulation of previously drained right retroperitoneal fluidcollection as described above. Abscess cannot be ruled out. 2. No new collection is identified. 3. Improving sequela of acute pancreatitis. Dictated by: Paul Shay MD Signed by Paul Shay MD on06/13/2025 17:04 ##### Final ##### Dictated by: PAUL SHAY MD-RAD Dictated DT/TM: 06/13/2025 5:04 pm Interpreted and electronically signed by: PAUL SHAY MD-RAD Signed DT/TM: 06/13/2025 5:04 pm Dixon Ca MD IMG CT PROCEDURES Final Result documented in this encounter Visit Diagnoses Diagnosis Acute pancreatitis- Primary Retroperitoneal abscess documented in this encounter Care Teams Director Law Enforcement Relationship Specialty Start Date End Date Robbie Ca MD [address] [phone] PCP - General Family Medicine 01/21/25 Garrett Gonzalez MD [address] [address] Referring Physician Gastroenterology 03/07/25 Dixon Ca MD [address] [place] [address], [address] [place] [address] Surgeon General Surgery 04/18/25 documented as of this encounter
--- OUTSIDE RECORDS SUMMARY | 2025-05-09 14:00 | XMS_ITS | Encounter Summary ---
Author Organization [facility] Address [address] [place] [address] Care Team Providers Care Embosser Apprentice Name Role Phone Robbie Ca MD Primary Care Provider [phone] Garrett Gonzalez MD Unavailable [phone] Dixon Ca MD Unavailable [phone] Reason for Visit * Reason Comments Follow-up CTA results Encounter Details Date Type Department Care Team (Late st Contact Info) Description 05/09/2025 2:00 PM EST Office Visit [facility] [address] [place] [address] Dixon Ca MD [address] [place] [address], [address] [address] Acute necrotizing pancreatitis (Primary Dx) [...] 3:26 PM EST Reyna Lopez MA * Alcohol Use Question Answer Date of Assessment Author Q1: [...] Description 07/04/2025 1:00 PM EST Office Visit [facility] [address] [place] [address] [phone] Dixon Ca MD [address] [place] [address], [address] [place] [address] documented as of this encounter Visit Diagnoses Diagnosis Acute necrotizing pancreatitis- Primary documented in this encounter Care Teams Embosser Apprentice Relationship Specialty Start Date End Date Robbie Ca MD [address] [place] [address] PCP - General Family Medicine 01/21/25 Garrett Gonzalez MD [address] [address] Referring Physician Gastroenterology 03/07/25 Dixon Ca MD [address] [place] [address] [address] [place] [address] Surgeon General Surgery 04/18/25 documented as of this encounter
--- OUTSIDE RECORDS SUMMARY | 2025-05-16 14:30 | XMS_ITS | Encounter Summary ---
Author Organization [facility] Address [address] [place] [address] Care Team Providers Care Park Activities Coordinator Name Role Phone Robbie Ca MD Primary Care Provider [phone] Garrett Gonzalez MD Unavailable [phone] Dixon Ca MD Unavailable [phone] Reason for Visit * Reason Comments Post-op Visit Doing well. Drainage is about the same Encounter Details Date Type Department Care Team (Late st Contact Info) Description 05/16/2025 2:30 PM EST Office Visit [facility] [address] [place] [address] Dixon Ca MD [address] [place] [address], [address] [place] [address] Acute necrotizing pancreatitis (Primary Dx) Social [...] Sign Reading Time Taken Comments Blood Pressure - - Pulse - - Temperature - - Respiratory Rate - - Oxygen Saturation - - Inhaled Oxygen Concentration - - Weight 83 kg (183 lb) 05/16/2025 1:39 PM EST Height - - Body Mass Index 26.26 05/09/2025 3:26 PM EST documented in this encounter Progress Notes * Dixon Ca MD - 05/16/2025 2:30 PM EST Subjective Patient ID: Chandrakant Aguillon is a 34 y.o. male. Chief Complaint Patient presents with Post-op Visit Doing well. Drainage is about the same HPI Mr. Aguillon returns for follow-up. His drain continues to produce purulent drainage, 50-100 cc every few days. Regular ileostomy output. His jejunostomy was snagged and came out, discussed this with him on the phone and we agreed not to replace it. Still has g-tube. Feeling better by the week. The following portions of the chart were reviewed this encounter and updated as appropriate: LUIS ARMANDO Reviewed byDixon Ca MD on 05/16/2025 2:10 PM Review of Systems As above; notes some sharp pain in hip by where his drain is located, worse at night Objective Physical Exam NAD/nontoxic Breathing nonlabored Ambulatory Anicteric/no jaundice No adenopathy Appropriate affect Nondistended Drain output purulent Stoma output appropriate in character Assessment/Plan Will leave the IR drain and g-tube for now. Continue flushing. Will send rx for gabapentin. Plan tosee back in a week. He continues to improve. Mihir Ca MD documented in this encounter Plan of Treatment Upcoming Encounters Date Type Department Care Team (Late st Contact Info) Description 07/04/2025 1:00 PM EST Office Visit [facility] [address] [place], [place] [id number] Dixon Ca MD [address] [place] [address], [address] [address] documented as of this encounter Visit Diagnoses Diagnosis Acute necrotizing pancreatitis- Primary documented in this encounter Care Teams Park Activities Coordinator Relationship Specialty Start Date End Date Robbie Ca MD [address] [place] [address] PCP - General Family Medicine 01/21/25 Garrett Gonzalez MD [address] [address] Referring Physician Gastroenterology 03/07/25 Dixon Ca MD [address] [place] [address], [address] [place] [address] Surgeon General Surgery 04/18/25 documented as of this encounter
--- OUTSIDE RECORDS SUMMARY | 2025-05-23 14:00 | XMS_ITS | Encounter Summary ---
Author Organization [facility] Address [address] [place] [address] Care Team Providers Care Risk Control Officer Name Role Phone Robbie Ca MD Primary Care Provider [phone] Garrett Gonzalez MD Unavailable [phone] Dixon Ca MD Unavailable [phone] Reason for Visit * Reason Comments Post-op Visit Doing well. Encounter Details Date Type Department Care Team (Late st Contact Info) Description 05/23/2025 2:00 PM EST Office Visit [facility] [address] [place] [address] Dixon Ca MD [address] [place] [address], [address] [address] Acute necrotizing pancreatitis (Primary Dx) [...] Progress Notes * Dixon Ca MD - 05/23/2025 2:00 PM EST Subjective Patient ID: Chandrakant Aguillon is a 34 y.o. male. Chief Complaint Patient presents with Post-op Visit Doing well. HPI Mr. Aguillon presents for drain and g-tube removal. Feeling better and better. Not using the tube. The drain is low-volume and serous. No fevers. Regular ileostomy output. The following portions of the chart were reviewed this encounter and updated as appropriate: Review of Systems As above, otherwise negative Objective Physical Exam NAD/nontoxic Breathing nonlabored Ambulatory Anicteric/no jaundice No adenopathy Appropriate affect Nondistended Incisions clean/intact Drain output serous Assessment/Plan The drain and the g-tube are both out. Encouraged him to continue working on nutrition and functional/physical rehabilitation. Plan to see back in a few weeks' time. Mihir Ca MD documented in this encounter Plan of Treatment Upcoming Encounters Date Type Department Care Team (Late st Contact Info) Description 07/04/2025 1:00 PM EST Office Visit [facility] [address] [place] [address] Dixon Ca MD [address] [place] [address], [address] [place] [address] documented as of this encounter Visit Diagnoses Diagnosis Acute necrotizing pancreatitis- Primary documented in this encounter Care Teams Risk Control Officer Relationship Specialty Start Date End Date Robbie Ca MD [address] [place] [address] PCP - General Family Medicine 01/21/25 Garrett Gonzalez MD [address] [id number] Referring Physician Gastroenterology 03/07/25 Dixon Ca MD [address] [place] [address], [address] [place] [address] Surgeon General Surgery 04/18/25 documented as of this encounter
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
[2025-06-13 19:25] LABS: Hematocrit 38.9 % (42.0-52.0); Hemoglobin 12.5 g/dL (14.1-18.0); Immature Granulocytes % 0.8 %; Mean Corpuscular HGB Conc 32.1 g/dL (31.8-35.4); Mean Corpuscular Hemoglobin 27.8 pg (27.0-31.2); Mean Corpuscular Volume 86.4 fl (80-94); Nucleated Red Blood Cells % 0 %; Platelet Count 258 K/mm3 (142-424); Red Blood Count 4.50 M/mm3 (4.60-6.20); Red Cell Distribution Width-SD 45.3 fL; White Blood Count 5.3 K/mm3 (4.8-10.8)
[2025-06-13 20:07] LABS: Alanine Aminotransferase 27 U/L (12-78); Albumin Level 3.8 g/dl (3.5-5.0); Albumin/Globulin Ratio 1.2 (1.1-1.8); Alkaline Phosphatase 135 U/L (38-126); Anion Gap 11.7 mEq/L (5-15); Aspartate Amino Transferase 42 U/L (17-59); Bilirubin,Total 0.6 mg/dl (0.2-1.3); Blood Urea Nitrogen 11 mg/dl (9-20); Calcium 8.9 mg/dl (8.4-10.2); Carbon Dioxide 23 mmol/L (22.0-30.0); Chloride 107 mmol/L (98-107); Creatinine,Serum 0.90 mg/dl (0.66-1.25); Estimated Glomerular Filt Rate 95 ml/min (>60); GFR (African American) 116 ML/MIN (>60); Globulin 3.3 g/dL (1.3-3.2); Glucose 87 mg/dl (74-100); Potassium 4.7 mmoL/L (3.5-5.1); Sodium 137 mmol/L (136-145); Total Protein,Serum 7.1 g/dl (6.3-8.2)
--- OUTSIDE RECORDS SUMMARY | 2025-06-14 12:10 | XMS_ITS | Encounter Summary ---
Author Organization [facility] Address [address] [place] [address] Care Team Providers Care Run Lead Name Role Phone Robbie Ca MD Primary Care Provider [phone] Garrett Gonzalez MD Unavailable [phone] Dixon Ca MD Unavailable [phone] Encounter Details Date Type Department Care Team (Late st Contact Info) Description 05/12/2025 Telephone [facility] [address] [place] [address] Mendez Jiang MA Social History Tobacco Use Types Packs/Day Years [...] encounter Miscellaneous Notes * Telephone Encounter - Mendez Jiang MA - 05/12/2025 10:16 AM EST Pt called stating he stood up and his J- tube is hanging out /sliding out his stomach. Dr. Ca informed.Per him have Pt go to Local ER and get the tube replaced. L/m for pt. documented in this encounter Plan of Treatment Upcoming Encounters Date Type Department Care Team (Late st Contact Info) Description 07/04/2025 1:00 PM EST Office Visit [facility] [address] [place] [address] [id number] Dixon Ca MD [address] [place] [address], [address] [place] [address] documented as of this encounter Visit Diagnoses Not on filedocumented in this encounter Care Teams Run Lead Relationship Specialty Start Date End Date Robbie Ca MD [address] [place] [address] [id number] PCP - General Family Medicine 01/21/25 Garrett Gonzalez MD [address] [address] Referring Physician Gastroenterology 03/07/25 Dixon Ca MD [address] [place] [address] [address] [place] [address] Surgeon General Surgery 04/18/25 documented as of this encounter
--- OUTSIDE RECORDS SUMMARY | 2025-06-14 12:11 | XMS_ITS | Encounter Summary ---
Author Organization [facility] Address [address] [place] [address] Care Team Providers Care Photographer Motion Picture Name Role Phone Robbie Ca MD Primary Care Provider [phone] Garrett Gonzalez MD Unavailable [phone] Dixon Ca MD Unavailable [phone] Reason for Visit * Reason Onset Date Comments Hospital Follow Up 05/02/2025 Encounter Details Date Type Department Care Team (Late st Contact Info) Description 05/02/2025 Telephone [facility] [address] [facility] [address] [place], [place] [id number] Katia Carranza RN Hospital Follow Up Social [...] EST Transitional Care Management Patient Contact Chandrakant Aguillon 1990 Date of Discharge: 04/29/2025 Facility Discharged: [facility] Diagnosis at time of Discharge: 1. Leukocytosis D72.829 2. Pancreatitis K85.90 3. Acute kidney injury N17.9 4. Abdominal pain R10.9 5. Vomiting R11.10 6. Hyponatremia E87.1 Date of Call: 05/02/2025 Date of [facility] Face-to Face Visit: Call Status Call Status: [...] Visit [facility] [address] [place] [address] Dixon Ca MD [address] [place] [phone] documented as of this encounter Visit Diagnoses Not on filedocumented in this encounter Care Teams Photographer Motion Picture Relationship Specialty Start Date End Date Robbie Ca MD [address] [place] [address] PCP - General Family Medicine 01/21/25 Garrett Gonzalez MD [address] [facility] [address] [place] [address] Referring Physician Gastroenterology 03/07/25 Dixon Ca MD [address] [facility], [address] [place] [address] Surgeon General Surgery 04/18/25 documented as of this encounter
--- OUTSIDE RECORDS SUMMARY | 2025-06-14 12:11 | XMS_ITS | Clinical Summary ---
Author Organization [facility] Address [address] [place] [address] Care Team Providers Care Fleet Technician Name Role Phone Robbie Ca MD Primary Care Provider [phone] Allergies Active Allergy Reactions Criticality Noted Date [...] 12/27/2024 Post-ERCP acute pancreatitis 12/23/2024 Choledocholithiasis 12/21/2024 Social History Tobacco Use Types Packs/Day Years Used Date Smoking Tobacco: Never Smokeless Tobacco: Never Tobacco Cessation:Counseling Given: Not Answered Alcohol Use Standard Drinks/Week Comments Never 0 (1 standard drink = 0.6 oz pur e alcohol) [facility] Utilities Answer Date Recorded In the past 12 months has th e [employer], gas, oil, or water [employer] threatened to shut off services in your [...] and heating? Not hard at all 12/21/2024 [facility] of Occupat ional Health - Occupational Stress [...] GED or equivalent No 12/21/2024 Preferred Language Japanese 12/21/2024 PHQ-2 Answer Date Recorded Patient Health [...] this topic Medical Devices Implanted Type Area Utility Tender Carding Device Identifier Shelf Expiration Date Model / Serial / Lot Clipapplr M/ Endo Ligaclip Rot 10mm /Lg - [id number] Implanted:Qty : 1 on 12/23/2024 by Yefri Heller MD at [facility] Implant N/A: Abdomen [employer] J [id number] 08/20/2029 [id number] / / [id number] Procedures Procedure Name Priority Date/Time Associated Diagnosis Comments HEPATITIS PANEL, ACUTE Add-On 12/19/2024 4:53 PM EDT from Last 3 Months or Most Recently Relevant to Health Maintenance Results * Hepatitis Panel, Acute (12/19/2024 4:53 PM EDT) Hepatitis B Surface Ag Non-Reacti ve Non-Reacti ve 12/21/2024 1:08 PM EDT [facility] Hep A IgM Non-Reacti ve Non-Reacti ve 12/21/2024 1:08 PM EDT [facility] Hep B C IgM Non-Reacti ve Non-Reacti ve 12/21/2024 1:08 PM EDT [facility] Hepatitis C Ab Non-Reacti ve Non-Reacti ve 12/21/2024 1:08 PM EDT [facility] Blood Venipuncture / Unknown 12/19/2024 4:53 PM EDT 12/19/2024 5:02 PM EDT Narrative [facility] - 12/21/2024 1:08 PM EDT Results may be falsely decreased if patient taking Biotin. us Leoncio Pastrana MD LAB BLOOD ORDERABLES Final Res ult [facility]
[address] [place] [address], from Last 3 Months or Most Recently Relevant to Health Maintenance Insurance [employer] EXCHANGE Advance Directives * CPR (Attempt to [...] Of Support Discussed With: Patient Care Teams Fleet Technician Relationship Specialty Start Date End Date Robbie Ca MD [address] [place] [address] [place] [address] PCP - General Family Medicine 12/19/24
--- OUTSIDE RECORDS SUMMARY | 2025-06-14 12:11 | XMS_ITS | Encounter Summary ---
Author Organization [facility] Address [address] [place] [address] Care Team Providers Care Systems Design Engineer Name Role Phone Robbie Ca MD Primary Care Provider [phone] Garrett Gonzalez MD Unavailable [phone] Dixon Ca MD Unavailable [phone] Reason for Visit * Reason Onset Date Comments Procedure 03/21/2025 Encounter Details Date Type Department Care Team (Late st Contact Info) Description 03/21/2025 Telephone [facility] [place] [facility] [address] [facility] [address] [place], [place] [phone] Garrett Gonzalez MD [address] [facility] [address] [place] [address] Procedure Social History Tobacco Use Types Packs/Day Years Used Date Smoking Tobacco: Never Assessed Sex and Gender Information Value Date Recorded Sex Assigned at Not on file Legal Sex Male 5:37 AM EDT Gender Identity Not on file Sexual Orientation Not on file documented as of this encounter Miscellaneous Notes * Telephone Encounter - Karissa Hoang - 04/18/2025 1:56 PM EDT [facility] is calling back to have patients stents removed Rasheeda from [place] [phone] * Telephone Encounter - Kathy Crain LPN - 03/23/2025 9:02 AM EDT Orders placed yesterday by provider Dalton Navarro documented in this encounter Plan of Treatment Upcoming Encounters Date Type Department Care Team (Late st Contact Info) Description 07/04/2025 1:00 PM EST Office Visit [facility] [address] [place] [address] [phone] Dixon Ca MD [address] [place] [phone] documented as of this encounter Visit Diagnoses Not on filedocumented in this encounter Care Teams Systems Design Engineer Relationship Specialty Start Date End Date Robbie Ca MD [address] [place] [address] PCP - General Family Medicine 01/21/25 Garrett Gonzalez MD [address] [place] [address] Referring Physician Gastroenterology 03/07/25 Dixon Ca MD [address] [place] [address] [place] [phone] Surgeon General Surgery 04/18/25 documented as of this encounter
--- OUTSIDE RECORDS SUMMARY | 2025-06-14 12:11 | XMS_ITS | Encounter Summary ---
Author Organization [facility] Address [address] [place] [address] Care Team Providers Care Tin Flopper Name Role Phone Robbie Ca MD Primary Care Provider [phone] Garrett Gonzalez MD Unavailable [phone] Dixon Ca MD Unavailable [phone] Reason for Referral * Imaging (Routine) - Closed Specialty Diagnoses / Procedures Referred By Contac t Referred To Contact Diagnoses Pancreatitis Procedures CT Abdomen Pelvis with IV contrast Jimmie Louise MD [address] [place] [address], [address] [place] [phone] Phone: tel: fax: Jimmie Louise MD [address] [place] [address], [address] [place] [phone] Phone: tel: fax: Referral ID Status Reason Start Date Expiration Date V isits Requested Visits Authorized [id number] Closed [facility] 05/02/2025 06/01/2026 1 1 Encounter Details Date Type Department Care Team (Late st Contact Info) Description 05/02/2025 Orders Only [facility] [address] [facility] [address] [place] [address] Jimmie Louise MD [address] [place] [address], [address] [place] [phone] Pancreatitis (Primary Dx) Social History Tobacco [...] Visit [facility] [address] [place] [address] Dixon Ca MD [address] [place] [phone] Scheduled Orders Name Type Priority Associated Diagnoses Orde r Schedule CT Abdomen Pelvis with IV contrast Imaging Routine Pancreatitis Expected: 05/02/2025 (Approximate), Expires: 05/02/2026 documented as of this encounter Visit Diagnoses Diagnosis Pancreatitis- Primary documented in this encounter Care Teams Tin Flopper Relationship Specialty Start Date End Date Robbie Ca MD [address] [place] [address] PCP - General Family Medicine 01/21/25 Garrett Gonzalez MD [address] [place] [address] Referring Physician Gastroenterology 03/07/25 Dixon Ca MD [address] [place] [address] [place] [phone] Surgeon General Surgery 04/18/25 documented as of this encounter
--- OUTSIDE RECORDS SUMMARY | 2025-06-14 12:11 | XMS_ITS | Encounter Summary ---
Author Organization [facility] Address [address] [place] [address] Care Team Providers Care Board Operator Name Role Phone Robbie Ca MD Primary Care Provider [phone] Garrett Gonzalez MD Unavailable [phone] Dixon Ca MD Unavailable [phone] Encounter Details Date Type Department Care Team (Latest Contact Info) Description 05/23/2025 Travel Social History Tobacco Use Types Packs/Day [...] Description 07/04/2025 1:00 PM EST Office Visit [facility] [address] [facility] [address] [facility] [address] [place] [address] Dixon Ca MD [address] [place] [address], [address] [place] [address] documented as of this encounter Visit Diagnoses Not on filedocumented in this encounter Care Teams Board Operator Relationship Specialty Start Date End Date Robbie Ca MD [address] [place] [address] PCP - General Family Medicine 01/21/25 Garrett Gonzalez MD [address] [address] Referring Physician Gastroenterology 03/07/25 Dixon Ca MD [address] [place] [address], [address] [place] [address] Surgeon General Surgery 04/18/25 documented as of this encounter
--- OUTSIDE RECORDS SUMMARY | 2025-06-14 12:11 | XMS_ITS | Clinical Summary ---
Author Organization [facility] Address [address] [place] [address] Phone Care Team Providers Care Friction Saw Operator Name Role Phone Unavailable Unavailable Conditions or Problems No information available. Medications No information available. Medications Administered No information available. Allergies, Adverse Reactions, Alerts No information available. Results No information available. Plan of Care No information available. Procedures No information available. Vital Signs No information available. Immunizations No information available. Advance Directives No information available.
--- OUTSIDE RECORDS SUMMARY | 2025-06-14 12:11 | XMS_ITS | Encounter Summary ---
Author Organization [facility] Address [address] [place] [address] Care Team Providers Care Computer Customer Support Specialist Name Role Phone Robbie Ca MD Primary Care Provider [phone] Garrett Gonzalez MD Unavailable [phone] Dixon Ca MD Unavailable [phone] Reason for Referral * Consultation (Routine) - Closed Specialty Diagnoses / Procedures Referred By Contac t Referred To Contact Diagnoses Pancreatitis Procedures Enteroscopy Dalton Navarro PA [address] [place] [address] Phone: tel: fax: [address] [phone] Referral ID Status Reason Start Date Expiration Date V isits Requested Visits Authorized [id number] Closed [facility] 04/18/2025 05/18/2026 1 1 Encounter Details Date Type Department Care Team (Latest Contact Info) Description 04/18/2025 Orders Only [facility] [address] [place], [place] [id number] Dalton Navarro PA [address] [place], [place] [id number] Pancreatitis (Primary Dx) Social History Tobacco Use [...] Visit [facility] [address] [place] [address] Dixon aC MD [address] [place] [address] Scheduled Orders Name Type Priority Associated Diagnoses Orde r Schedule Enteroscopy Endoscopy Routine Pancreatitis Expected: 04/18/2025 (Approximate), Expires: 04/18/2026 documented as of this encounter Visit Diagnoses Diagnosis Pancreatitis- Primary documented in this encounter Care Teams Computer Customer Support Specialist Relationship Specialty Start Date End Date Robbie Ca MD [address] [place] [address] PCP - General Family Medicine 01/21/25 Garrett Gonzalez MD [address] [place] [address] Referring Physician Gastroenterology 03/07/25 Dixon Ca MD [address] [place] [address] Surgeon General Surgery 04/18/25 documented as of this encounter
--- OUTSIDE RECORDS SUMMARY | 2025-06-14 12:11 | XMS_ITS | Encounter Summary ---
Author Organization [facility] Address [address] [place] [address] Care Team Providers Care Director Information Name Role Phone Robbie Ca MD Primary Care Provider [phone] Garrett Gonzalez MD Unavailable [phone] Dixon Ca MD Unavailable [phone] Encounter Details Date Type Department Care Team (Late st Contact Info) Description 05/02/2025 Orders Only [facility] [address] [place] [id number] Jimmie Louise MD [address] [place] [address], [address] [place] [address] Social History Tobacco Use Types [...] Description 07/04/2025 1:00 PM EST Office Visit [facility] [address] [address] Dixon Ca MD [address] [place] [address], [address] [place] [address] documented as of this encounter Visit Diagnoses Not on filedocumented in this encounter Care Teams Director Information Relationship Specialty Start Date End Date Robbie Ca MD [address] [place] [address] PCP - General Family Medicine 01/21/25 Garrett Gonzalez MD [address] [place] [address] Referring Physician Gastroenterology 03/07/25 Dixon Ca MD [address] [place] [address], [address] [place] [address] Surgeon General Surgery 04/18/25 documented as of this encounter
--- OUTSIDE RECORDS SUMMARY | 2025-06-14 12:11 | XMS_ITS | Encounter Summary ---
Author Organization [facility] Address [address] [place] [address] Care Team Providers Care Health Care Coach Name Role Phone Robbie Ca MD Primary Care Provider [phone] Garrett Gonzalez MD Unavailable [phone] Dixon Ca MD Unavailable [phone] Encounter Details Date Type Department Care Team (Latest Contact Info) Description 05/15/2025 Travel Social History Tobacco Use Types Packs/Day [...] Department Care Team (Late Contact Info) Description 07/04/2025 1:00 PM EST Office Visit [facility] [address] [facility] [address] [place] [address] Dixon Ca MD [address] [place] [address], [address] [place] [address] documented as of this encounter Visit Diagnoses Not on filedocumented in this encounter Care Teams Health Care Coach Relationship Specialty Start Date End Date Robbie Ca MD [address] [place] [address] PCP - General Family Medicine 01/21/25 Garrett Gonzalez MD [address] [address] Referring Physician Gastroenterology 03/07/25 Dixon Ca MD [address] [place] [address], [address] [place] [address] Surgeon General Surgery 04/18/25 documented as of this encounter
--- OUTSIDE RECORDS SUMMARY | 2025-06-14 12:11 | XMS_ITS | Encounter Summary ---
Author Organization [facility] Address [address] [place] [address] Care Team Providers Care Subscription Crew Leader Name Role Phone Robbie Ca MD Primary Care Provider [phone] Garrett Gonzalez MD Unavailable [phone] Dixon Ca MD Unavailable [phone] Encounter Details Date Type Department Care Team (Latest Contact Info) Description 06/06/2025 Travel Social History Tobacco Use Types Packs/Day [...] Description 07/04/2025 1:00 PM EST [facility] [address] [facility] [address] [place] [address] Dixon Ca MD [address] [place] [address], [address] [place] [address] documented as of this encounter Visit Diagnoses Not on filedocumented in this encounter Care Teams Subscription Crew Leader Relationship Specialty Start Date End Date Robbie Ca MD [address] [place] [address] PCP - General Family Medicine 01/21/25 Garrett Gonzalez MD [address] [address] Referring Physician Gastroenterology 03/07/25 Dixon Ca MD [address] [place] [address], [address] [place] [address] Surgeon General Surgery 04/18/25 documented as of this encounter
--- OUTSIDE RECORDS SUMMARY | 2025-06-14 12:11 | XMS_ITS | Clinical Summary ---
Author Organization [facility] Address [address] [facility] [address] [place] [address] Care Team Providers Care Well Shooter Name Role Phone Robbie Ca MD Primary Care Provider [phone] Garrett Gonzalez MD Unavailable [phone] Dixon Ca MD Unavailable [phone] Allergies Active Allergy Reactions Criticality Noted Date [...] ceftriaxone Sulfa Antibiotics Hives,Rash Low 12/19/2024 Medications prochlorperazin e (Compazine) 10 MG tablet 5 Active HYDROmorphone (Dilaudid) 2 MG tablet Active gabapentin (Neurontin) 300 MG capsule Take 1 capsule by mouth in the morning and 1 capsule in the evening and 1 capsule before bedtime. 60 capsule 5 06/15/20 25 Active Additional Information Patient not taking.Reported on 06/08/2025 Active Problems Problem Noted Date Diagnosed Date [...] Encounters Date Type Department Care Team Description 06/08/2025 12:45 PM EST Office Visit [facility] [address] [facility] [address] [place] [address] Jimmie Louise MD Acute necrotizing pancreatitis (Primary Dx) 06/08/2025 Travel 06/06/2025 Travel 06/01/2025 Travel 05/23/2025 2:00 PM EST Office Visit [facility] [address] [facility] [address] [place] [address] Dixon Ca MD Acute necrotizing pancreatitis (Primary Dx) 05/23/2025 Travel 05/16/2025 2:30 PM EST Office Visit [facility] [address] [facility] [address] [place] [address] Dixon Ca MD Acute necrotizing pancreatitis (Primary Dx) 05/15/2025 Travel 05/12/2025 Telephone [facility] [address] [facility] [address] [place] [address] Mendez Jiang MA 05/09/2025 2:00 PM EST Office Visit [facility] [address] [place] [address] Dixon Ca MD Acute necrotizing pancreatitis (Primary Dx) 05/09/2025 Travel 05/09/2025 Telephone [facility] [address] [facility] [address] [place] [address] Jimmie Louise MD Appointment 05/06/2025 Travel 05/02/2025 2:15 PM EST Office Visit [facility] [address] [facility] [address] [place] [address] Dixon Ca MD Acute pancreatitis (Primary Dx); Retroperitoneal abscess 05/02/2025 Travel 05/02/2025 Orders Only [facility] [address] [facility] [address] [place] [address] Jimmie Louise MD Pancreatitis (Primary Dx) 05/02/2025 Orders Only [facility] [address] [facility] [address] [place] [address] Jimmie Louise MD 05/02/2025 Telephone [facility] [address] [facility] [address] [place] [address] Katia Carranza RN Hospital Follow Up 04/29/2025 Travel 04/18/2025 Orders Only [facility] [address] [facility] [address] [place] [address] Dalton Navarro PA Pancreatitis (Primary Dx) 03/22/2025 Orders Only [facility] [address] [facility] [address] [place] [address] Dalton Navarro PA Acute necrotizing pancreatitis (Primary Dx) 03/21/2025 Telephone [facility] [address] [place] [address] Garrett Gonzalez MD Procedure from Last 3 Months Social History Tobacco [...] Mass Index 25.18 06/08/2025 12:35 PM EST Plan of Treatment Upcoming Encounters Date Type Department Care Team (Late st Contact Info) Description 07/04/2025 1:00 PM EST Office Visit [facility] [address] [place] [address] Dixon Ca MD [address] [place] [address], [address] [phone] Health Maintenance Due Date Last Done Comments HIV Screening 1989 Hepatitis C Screening 1989 Lipid Panel 1989 MMR Vaccines (1 of 1 - Stand juancho series) 1990 Varicella Vaccines (1 of 2 - 13+ [...] 2025 Zoster Vaccines (1 of 2) 2039 BMI Intervention Completed 06/08/2025 HIB Vaccines Aged Out No longer eligi [...] 11:11 AM EST Acute pancreatitis Retroperitoneal abscess IMAGING SCANNED RESULT 05/24/2025 IMAGING SCANNED RESULT 05/10/2025 ERCP 04/28/2025 3:10 [...] RESISTANT SCREEN Routine 03/18/2025 6:06 PM EDT from Last 3 Months Results * CT Abdomen Pelvis with IV contrast (06/08/2025 11:11 AM EST) Only the most recent of3 resultswithin the time period is included. Anatomical Region Laterality Modality Body, Pelvis, Abdomen Computed T omography Other 06/08/2025 11:1 1 AM EST Narrative 06/08/2025 11:35 AM EST ACCESSION NUMBER: [id number] DATE: 06/08/2025 11:11 EXAMINATION: CT Abdomen Pelvis [...] Paul Shay MD - 06/13/2025 ACCESSION NUMBER: [id number] DATE: 06/08/2025 11:11 EXAMINATION: CT Abdomen Pelvis [...] Ca MD IMG CT PROCEDURES Final Result * Imaging Scanned Result (05/24/2025) Only the most recent of2 resultswithin the time period is included. Anatomical Region Laterality Modality Lower Extremities, Ankle Left Radiogr aphic Imaging Narrative 05/24/2025 Ordered by an unspecified provider. Provider Not In System IMG XR PROCEDURES Final R esult * ERCP (04/28/2025 3:10 PM EST) Anatomical Region Laterality Modality Endoscopy Narrative Procedure Note Jimmie Louise MD - 04/28/2025 3:10 PM EST Patient: JENNIFER AGUILLON Age: 34 years Sex: Male : 1990 Associated Diagnoses: None Author: JIMMIE LOUISE MD-RADHA Procedure: ERCP - Endoscopic Retrograde Cholangio-Pancreatography The Attending Physician was present throughout the entire procedure. INDICATION(S): _-Outside patient, referred to in -Hx of biliary choledocho s/p ERCP with [...] were verified by the nurse (, nurse human geography instructor) and physicianendoscopist in the Endoscopy Suite. The [...] Signed on04/28/2025 15:14 EST JIMMIE LOUISE MD-GAE us Jimmie Louise MD ENDOSCOPY PROCEDURE ORDERABLES F inal Result * (ABNORMAL) AUTODIFF (04/27/2025 11:38 AM [...] 8 AM EST 04/27/2025 11:44 AM EST [facility] LAB - 04/27/2025 11:48 AM EST labs, ct, ortho Ordered by Discern Expert. Performed by [facility], [address] [place] [address] us Cheri Iverson MD LAB BLOOD ORDERABLES Final Resu lt [facility] [address] [place] [address], [facility] Heme Coag UA SS Pathology Department [address] [place] [address] * (ABNORMAL) CBC With Differential (04/27/2025 11:38 [...] 8 AM EST 04/27/2025 11:44 AM EST [facility] LAB - 04/27/2025 11:48 AM EST labs, ct, ortho Performed by [facility], [address] [place] [address] Cheri Iverson MD LAB BLOOD ORDERABLES Final Resu lt Performing Organization Address [facility] Co de Phone Number [facility] [address] [place] [address], [facility] Heme Coag UA Pathology Department [address] [place] [address] [facility] CH Remisol 2.0 Pathology Department [address] [place] [address] * Lipase (04/27/2025 11:38 AM EST) Lipase 46 11 - 82 Units/Liter 04/27/2025 12:19 PM EST [facility] CH Remisol 2.0 SS Blood 04/27/2025 11:3 8 AM EST 04/27/2025 11:44 AM EST [facility] LAB - 04/27/2025 12:19 PM EST labs, ct, ortho Performed by [facility], [address] [place] [address] Cheri Iverson MD LAB BLOOD ORDERABLES Final Resu lt Performing Organization Address [facility] Co de Phone Number [facility] [address] [place] [address], [facility] CH Remisol 2.0 Pathology Department [address] [place] [address] * Lactic acid, plasma (04/27/2025 11:38 AM EST) Only the most recent of2 resultswithin the time period is included. Lactate 1.5 0.5 - 1.9 mMole/Liter 04/27/2025 12:08 PM EST [facility] CH Remisol 2.0 SS Blood 04/27/2025 11:3 8 AM EST 04/27/2025 11:44 AM EST [facility] LAB - 04/27/2025 12:08 PM EST labs, ct, [place] [address] us Cheri Iverson MD LAB BLOOD ORDERABLES Final Resu lt [facility] [address] [place] [address], [facility] CH Remisol 2.0 SS Pathology Department [address] [place] [address] * (ABNORMAL) Comprehensive metabolic panel (04/27/2025 11:38 [...] 8 AM EST 04/27/2025 11:44 AM EST [facility] LAB - 04/27/2025 12:20 PM EST labs, ct, ortho Performed by [facility], [address] [place] [address] us Cheri Iverson MD LAB BLOOD ORDERABLES Final Resu lt [facility] [address] [place] [address], [facility] CH Remisol 2.0 Pathology Department [address] [place] [address] * (ABNORMAL) Phosphorus (04/20/2025 3:47 AM EDT) Only the most recent of29 resultswithin the time period is included. Phosphorus 5.7(H) 2.5 - 5.0 mg/dL 04/20/2025 4:23 AM EDT [facility] CH Remisol 2.0 Blood 04/20/2025 3:47 AM EDT 04/20/2025 3:56 AM EDT [facility] LAB - 04/20/2025 4:23 [place] [address] us Ivon Rucker MD LAB BLOOD ORDERABLES Final Resul t Performing Organization Address City/[facility] Co de Phone Number [facility] [address] [place] [address], [facility] Remisol 2.0 Pathology Department [address] [place] [address] * (ABNORMAL) Magnesium (04/20/2025 3:47 AM EDT) Only the most recent of30 resultswithin the time period is included. Magnesium 1.7(L) 1.9 - 2.7 mg/dL 04/20/2025 4:23 AM EDT [facility] CH Remisol 2.0 Blood 04/20/2025 3:4 7 AM EDT 04/20/2025 3:56 AM EDT [facility] LAB - 04/20/2025 4:23 AM EDT Performed by [address] [id number] us Ivon Rucker MD LAB BLOOD ORDERABLES Final Resul t [facility] [address] [place] [address], [facility] CH Remisol 2.0 SS Pathology Department [address] [place] [address] * (ABNORMAL) Basic Metabolic Panel (04/20/2025 3:47 [...] - 5.1 mmol/L 04/20/2025 4:23 AM EDT L CH Remisol 2.0 SS Chloride 97(L) 98 [...] 3:47 AM EDT 04/20/2025 3:56 AM EDT [facility] LAB - 04/20/2025 4:23 AM EDT Performed by [facility], [address] [place] [address] us Non-Ulp Provider LAB BLOOD ORDERABLES Final Resu lt [facility] [address] [place] [address], [facility] Remisol 2.0 Pathology Department [address] [place] [address] * CULTURE BODY FLUID AND STAIN (04/12/2025 3:31 PM EDT) Other Abdominal wall / Unknown 04/12/2025 3:31 PM EDT 04/12/2025 5:59 PM EDT [facility] LAB - 04/17/2025 3:03 PM EDT [...] Locations R1: This test was performed at: [facility], Pathology Department, [address] [place] [address], [id number] , [place], us Enrique Barr MD LAB BLOOD ORDERABLES Cheryle l Result [facility] [address] [place] [address], * CT DRAINAGE PERITONEAL (04/12/2025 2:49 PM [...] a stay fix dressing then attached to abag for gravity drainage. 20 cc of grossly [...] DT/TM: 04/13/2025 2:52 am Ekaterina Mohan MD IM CT PROCEDURES Final Result * (ABNORMAL) PT/INR PROTHROMBIN TIME PTT (04/12/2025 1:03 PM EDT) Only the most recent of2 resultswithin the time period is included. Pathologist [facility] PT 13.8(H) 10.2 - 12.9 Second 04/12/2025 1:53 PM EDT [facility] Heme Coag UA INR 1.2 04/12/2025 1:53 PM EDT [facility] Heme Coag UA Comment: Recommended INR range for Oral Anticoagulant Therapy : STANDARD: 2.0 - 3.0 HIGH: 3.0 - 4.5 NOTE: Recommended range will be different for patients with mechanical implants. PTT 28.9 26.6 - 35.9 Second 04/12/2025 1:53 PM EDT [facility] Heme Coag UA Comment:Heparin therapeutic range is 55-95 sec. When the PTT is> 95 sec, if on heparin, refer to heparin protocol. If not on heparin, recommend appropriate workup. Blood 04/12/2025 1:03 PM EDT 04/12/2025 1:14 PM EDT [facility] LAB - 04/12/2025 1:53 [place] [address] Enrique Barr MD LAB BLOOD ORDERABLES Cheryle silva Result [facility] [address] [place] [address], [facility] Amber Pathology Department [address] [place] [address] * CT Abdomen Pelvis without IV contrast (04/11/2025 6:37 PM EDT) Anatomical Region Laterality Modality Body, Pelvis, Abdomen Computed T omography 04/11/2025 6:37 PM EDT Narrative 04/11/2025 6:47 PM EDT ACCESSION NUMBER: [id number] DATE: 04/11/2025 18:37 EXAMINATION: CT Abdomen Pelvis [...] Paul Shay MD - 04/12/2025 ACCESSION NUMBER: [id number] DATE: 04/11/2025 18:37 EXAMINATION: CT Abdomen Pelvis [...] Narrative 04/02/2025 2:09 PM EDT ACCESSION NUMBER: [id number] EXAMINATION: XA Abscess Drain Peritoneal PROCEDURE: 1. [...] exchange and repositioning with a new 20 Estonian nonlocking pigtail drainage catheter. A total of 200 cc of necrotic fluid were aspirated. 3. Fluoroscopic guided RIGHT retroperitoneal drainage catheter exchange and repositioning with a new 14 Estonian locking biliary pigtail drainage catheter. A total [...] made with a #11 scalpel. A 5 Estonian 19-gauge Yueh catheter/needle was then directed via [...] 0.035 inch Glidewire. Following this, a 4 Estonian Kumpe catheter was advanced over the wire, and the wire was repositioned more superior in the left upper quadrant. The catheter was then exchanged for a new 20 Estonian nonlocking loop drainage catheter. The wire was [...] Internal catheter securement: Locking loop Catheter placed: Backbl[employer] Quick Catheter size (Estonian): 20 Fluid type: Necrotic fluid Total volume [...] 0.035 inch Glidewire. Following this, a 4 Estonian Kumpe catheter was advanced over the wire, and the wire was repositioned more superior in the right upper quadrant. The catheter was then exchanged for a new 14 Estonian biliary type drainage catheter with extra proximal [...] Internal catheter securement: Locking loop Catheter placed: [email or web address] Biliary Catheter size (Estonian): 14 Fluid type: Necrotic fluid Total volume [...] Attestation Signer name: Omar Trujillo MD, MBA, RPANN I attest that I was present for the entire procedure. I reviewed the stored images and agree with the report as written. Omar Trujillo MD, MBA, RPVI mandrel press hand Division of Vascular and Interventional Radiology Department of Radiology [address] [place] [address] Dictated by: Omar Trujillo MD, MBA Signed by Omar Trujillo MD, MBA on 04/02/2025 14:37 ##### Final ##### Dictated by: OMAR TRUJILLO MD-RAD Dictated DT/TM: 04/02/2025 2:37 pm Interpreted and electronically signed by: OMAR TRUJILLO MD-RAD Signed DT/TM: 04/02/2025 2:37 pm Procedure Note Omar Trujillo MD - 04/02/2025 ACCESSION NUMBER: [id number] EXAMINATION: XA Abscess Drain Peritoneal PROCEDURE: 1. [...] catheter exchange andrepositioning with a new 20 Estonian nonlocking pigtail drainage catheter. Atotal of 200 cc of necrotic fluid were aspirated. 3. Fluoroscopic guided RIGHT retroperitoneal drainage catheter exchangeand repositioning with a new 14 Estonian locking biliary pigtail drainagecatheter. A total of [...] witnessed. [facility] [...] made with a #11 scalpel. A 5 Estonian 19-gauge Yueh catheter/needlewas then directed via an [...] a 0.035 inch Glidewire.Following this, a 4 Estonian Kumpe catheter was advanced over the wire, andthe wire was repositioned more superior in the left upper quadrant. Thecatheter was then exchanged for a new 20 Estonian nonlocking loop drainagecatheter. The wire was removed [...] Catheter placed: [employer] Quick Catheter size (Estonian): 20 Fluid type: Necrotic fluid Total volume [...] a 0.035 inch Glidewire.Following this, a 4 Estonian Kumpe catheter was advanced over the wire, andthe wire was repositioned more superior in the right upper quadrant. Thecatheter was then exchanged for a new 14 Estonian biliary type drainagecatheter with extra proximal sideholes. [...] Internal catheter securement: Locking loop Catheter placed: [email or web address] Biliary Catheter size (Estonian): 14 Fluid type: Necrotic fluid Total volume [...] as written. Omar Trujillo MD, MELVI, RPVI mandrel press hand Division of Vascular and Interventional Radiology Department of Radiology [address] [place] [address] Dictated by: Omar Trujillo MD, MELVI Signed by Omar Wetzel MD, MELVI on 04/02/2025 14:37 ##### Final ##### Dictated by: OMAR TRUJILLO MD-RAD Dictated DT/TM: 04/02/2025 2:37 pm Interpreted and electronically signed by: OMAR TRUJILLO MD-RAD Signed DT/TM: 04/02/2025 2:37 pm Ekaterina Mohan MD IMG IR PROCEDURES Final Result * ABO/Rh (04/02/2025 10:14 AM EDT) HX CHECK Yes Prev Hx 04/02/2025 10:28 AM EDT [facility] Blood Bank Subsection\.br \ METHOD Willett 2 04/02/2025 11:10 AM EDT [facility] Blood Bank Subsection\.br \ ANTI-A 40 04/02/2025 11:07 AM EDT [facility] Blood Bank Subsection\.br \ ANTI-B 0 04/02/2025 11:07 AM EDT [facility] Blood Bank Subsection\.br \ ANTI-D 40 04/02/2025 11:07 AM EDT [facility] Blood Bank Subsection\.br \ A1 0 04/02/2025 11:07 AM EDT [facility] Blood Bank Subsection\.br \ B 30 04/02/2025 11:07 AM EDT [facility] Blood Bank Subsection\.br \ ABORh A POS 04/02/2025 11:10 AM EDT [facility] Blood Bank Subsection\.br \ Blood 04/02/2025 10:1 4 AM EDT 04/02/2025 10:24 AM EDT [facility] LAB - 04/02/2025 11:10 AM EDT Performed by [facility], [address] [place] [address] us Sia Vaughn MD LAB BLOOD BANK TE ST ORDERABLES Final Result Performing Organization Address [facility]/ZIP Co de Phone Number [facility] [address] [place] [address], [facility] Blood Bank Subsection\.br\ Pathology Department [address] [place] [address] * Antibody screen (04/02/2025 10:14 AM EDT) [facility] ANTIBODY SCREEN Negative ABSC 04/02/2025 11:29 AM EDT [facility] Blood Bank Subsection\.b r\ Blood 04/02/2025 10:1 4 AM EDT 04/02/2025 10:24 AM EDT [facility] LAB - 04/02/2025 11:29 AM EDT Performed by [facility], [address] [place] [address] us Sia Vaughn MD LAB BLOOD BANK TE ST ORDERABLES Final Result Performing Organization Address [facility] Co de Phone Number [facility] [address] [place] [address], [facility] Blood Bank Subsection\.br\ Pathology Department [address] [place] [address] * (ABNORMAL) Hepatic function panel (03/29/2025 3:53 AM EDT) [facility] Albumin 2.5(L) 3.5 - 5.2 Gram/dL 03/29/2025 4:26 AM EDT [facility] CH Remisol 2.0 SS Globulin, Total 3.7(H) 2.0 - 3.5 Gram/dL 03/29/2025 4:26 AM EDT [facility] CH Remisol 2.0 SS Total Protein 6.2(L) 6.4 - 8.9 Gram/dL 03/29/2025 4:26 AM EDT [facility] CH Remisol 2.0 SS A/G Ratio 0.7(L) 1.0 - 2.5 03/29/2025 4:26 AM EDT [facility] CH Remisol 2.0 SS ALT (SGPT) 10 <=32 Units/Lite r 03/29/2025 4:26 AM EDT [facility] CH Remisol 2.0 SS AST 14 13 - 39 Units/Lite r 03/29/2025 4:26 AM EDT [facility] CH Remisol 2.0 SS Alkaline Phosphatase 62 34 - 104 Units/Lite r 03/29/2025 4:26 AM EDT [facility] CH Remisol 2.0 SS Total Bilirubin 0.2(L) 0.3 - 1.0 mg/dL 03/29/2025 4:26 AM EDT [facility] CH Remisol 2.0 SS Bilirubin, Direct 0.1 0.1 - 0.2 mg/dL 03/29/2025 4:26 AM EDT [facility] CH Remisol 2.0 SS Blood Venous Draw / Unknown 03/29/2025 3:53 AM EDT 03/29/2025 3:59 AM EDT [facility] LAB - 03/29/2025 4:26 [place] [address] us Non-Ulp Provider LAB BLOOD ORDERABLES Final Resu lt [facility] [address] [place] [address], [facility] CH Remisol 2.0 Pathology Department [address] [place] [address] * (ABNORMAL) Vancomycin, trough (03/20/2025 11:29 AM EDT) VANCOMYCIN TROUGH 8.8(L) 10.0 - 15.0 mcg/mL 03/20/2025 12:33 PM EDT [facility] CH Remisol 2.0 SS Blood 03/20/2025 11:2 9 AM EDT 03/20/2025 12:10 PM EDT [facility] LAB - 03/20/2025 12:33 PM EDT Performed by [facility], [address] [facility], [place] [address] Phi Caro MD LAB BLOOD ORDERABLES Final Resu lt Performing Organization Address [facility] Co de Phone Number [facility] [address] [place] [address], [place] [facility] Remisol 2.0 Pathology Department [address] [place] [address] * CULTURE BLOOD (03/19/2025 3:12 PM EDT) Only the most recent of3 resultswithin the time period is included. Blood 03/19/2025 3:12 PM EDT 03/19/2025 5:44 PM EDT [facility] LAB - 03/24/2025 11:01 PM EDT [...] Locations R1: This test was performed at: [facility], Pathology Department, [address] [place] [address], [phone] , [place], Phi Caro MD LAB BLOOD ORDERABLES Final Resu lt Performing Organization Address [facility] Co de Phone Number [facility] [address] [place] [address], [place] * XR CHEST 1 VW PORTABLE [...] RANDLE Molecular SS Comment: Called VM at [facility] by gt 03/19/2025 08:23:44 EDT This test was developed and its performance characteristics determined by [facility]. It has not been cleared or [...] 6:35 PM EDT 03/18/2025 10:20 PM EDT [facility] LAB - 03/19/2025 8:23 AM EDT Performed by [facility], [address] [place] [address] Phi Caro MD LAB BLOOD ORDERABLES Final Resu lt Performing Organization Address City/State/[facility] Co de Phone Number [facility] [address] [place] [address], SANGEETHA RANDLE Molecular SS Pathology Department [address] [place] [address] * CULTURE CARBAPENEM RESISTANT SCREEN (03/18/2025 6:06 PM EDT) Other 03/18/2025 6:06 PM EDT 03/18/2025 10:20 PM EDT [facility] LAB - 03/21/2025 6:21 AM EDT [...] Locations R1: This test was performed at: [facility], Pathology Department, [address] [facility], [place], [address]- , [place], us Phi Caro MD LAB BLOOD ORDERABLES Final Resu lt [facility] [address] [place] [address], [place] from Last 3 Months Insurance EXCHANGE AMBETTER Care Teams Well Shooter Relationship Specialty Start Date End Date Robbie Ca MD [address] [place] [address] PCP - General Family Medicine 01/21/25 Garrett Gonzalez MD [address] [facility] [address] [place] [address] Referring Physician Gastroenterology 03/07/25 Dixon Ca MD [address] [place] [facility] [address] [place] [address] Surgeon General Surgery 04/18/25
--- OUTSIDE RECORDS SUMMARY | 2025-06-14 12:11 | XMS_ITS | Encounter Summary ---
Author Organization [facility] Address [address] [place] [address] Care Team Providers Care Motion Study Analyst Name Role Phone Robbie Ca MD Primary Care Provider [phone]- [phone] Garrett Gonzalez MD Unavailable [phone] Dixon Ca MD Unavailable [phone] Encounter Details Date Type Department Care Team (Latest Contact Info) Description 06/08/2025 Travel Social History Tobacco Use Types Packs/Day [...] Description 07/04/2025 1:00 PM EST [facility] [address] [facility] [address] [place] [address] Dixon Ca MD [address] [place] [address], [address] [place] [address] documented as of this encounter Visit Diagnoses Not on filedocumented in this encounter Care Teams Motion Study Analyst Relationship Specialty Start Date End Date Robbie Ca MD [address] [place] [address] PCP - General Family Medicine 01/21/25 Garrett Gonzalez MD [address] [address] Referring Physician Gastroenterology 03/07/25 Dixon Ca MD [address] [place] [address], [address] [place] [address] Surgeon General Surgery 04/18/25 documented as of this encounter
--- OUTSIDE RECORDS SUMMARY | 2025-06-14 12:11 | XMS_ITS | Encounter Summary ---
Author Organization [facility] Address [address] [place] [address] Care Team Providers Care Skiving Machine Operator Name Role Phone Robbie Ca MD Primary Care Provider [phone]- [phone] Garrett Gonzalez MD Unavailable [phone] Dixon Ca MD Unavailable [phone] Encounter Details Date Type Department Care Team (Latest Contact Info) Description 06/01/2025 Travel Social History Tobacco Use Types Packs/Day [...] Description 07/04/2025 1:00 PM EST [facility] [address] [facility] [address] [place] [address] Dixon Ca MD [address] [place] [address], [address] [place] [address] documented as of this encounter Visit Diagnoses Not on filedocumented in this encounter Care Teams Skiving Machine Operator Relationship Specialty Start Date End Date Robbie Ca MD [address] [place] [address] PCP - General Family Medicine 01/21/25 Garrett Gonzalez MD [address] [address] Referring Physician Gastroenterology 03/07/25 Dixon Ca MD [address] [place] [address], [address] [place] [address] Surgeon General Surgery 04/18/25 documented as of this encounter
--- OUTSIDE RECORDS SUMMARY | 2025-06-14 12:12 | XMS_ITS | Encounter Summary ---
Author Organization [facility] Address [address] [place] [address] Care Team Providers Care Brassiere Cup Mold Cutter Name Role Phone Robbie Ca MD Primary Care Provider [phone]- [phone] Garrett Gonzalez MD Unavailable [phone] Dixon Ca MD Unavailable [phone] Encounter Details Date Type Department Care Team [...] Description 07/04/2025 1:00 PM EST [facility] [address] [facility] [address] [place] [address] Dixon Ca MD [address] [place] [address], [address] [place] [address] documented as of this encounter Visit Diagnoses Not on filedocumented in this encounter Care Teams Brassiere Cup Mold Cutter Relationship Specialty Start Date End Date Robbie Ca MD [address] [place] [address] PCP - General Family Medicine 01/21/25 Garrett Gonzalez MD [address] [address] Referring Physician Gastroenterology 03/07/25 Dixon Ca MD [address] [place] [address], [address] [place] [address] Surgeon General Surgery 04/18/25 documented as of this encounter
--- OUTSIDE RECORDS SUMMARY | 2025-06-14 12:12 | XMS_ITS | Encounter Summary ---
Author Organization [facility] Address [address] [place] [address] Care Team Providers Care Precinct Captain Name Role Phone Robbie Ca MD Primary Care Provider [phone]- [phone] Garrett Gonzalez MD Unavailable [phone] Dixon Ca MD Unavailable [phone] Reason for Visit * Reason Onset Date Comments Appointment 05/09/2025 Encounter Details Date Type Department Care Team (Late st Contact Info) Description 05/09/2025 [facility] [address] [address] Jimmie Louise MD [address] [place] [address], [address] [place] [address] Appointment Social History Tobacco Use [...] 05/09/2025 10:31 AM EST Call Back Number: [phone] Person calling (patient/caregiver/facility/etc): Pts Patient's provider: DR [...] Visit [facility] [address] [place] [address] Dixon Ca MD [address] [place] [id number] documented as of this encounter Visit Diagnoses Not on filedocumented in this encounter Care Teams Precinct Captain Relationship Specialty Start Date End Date Robbie Ca MD [address] [place] [address] PCP - General Family Medicine 01/21/25 Garrett Gonzalez MD [address] [facility] [address] [place] [address] Referring Physician Gastroenterology 03/07/25 Dixon Ca MD [address] [place] [address], [address] [place] [address] Surgeon General Surgery 04/18/25 documented as of this encounter
--- OUTSIDE RECORDS SUMMARY | 2025-06-14 12:12 | XMS_ITS | Encounter Summary ---
Author Organization [facility] Address [address] [place] [address] Care Team Providers Care Willow Specialists Name Role Phone Robbie Ca MD Primary Care Provider + [phone] Garrett Gonzalez MD Unavailable [phone] Dixon Ca MD Unavailable [phone] Encounter Details Date Type Department Care Team [...] Description 07/04/2025 1:00 PM EST Office Visit [facility] [address] [place] [address] Dixon Ca MD [address] [place] [address], [address] [address] documented as of this encounter Visit Diagnoses Not on filedocumented in this encounter Care Teams [employer]ists Relationship Specialty Start Date End Date Robbie Ca MD [address] [place] [id number] PCP - General Family Medicine 01/21/25 Garrett Gonzalez MD [address] [address] Referring Physician Gastroenterology 03/07/25 Dixon Ca MD [address] [place] [address], [address] [place] [address] Surgeon General Surgery 04/18/25 documented as of this encounter
--- OUTSIDE RECORDS SUMMARY | 2025-06-14 12:12 | XMS_ITS | Encounter Summary ---
Author Organization [facility] Address [address] [place] [address] Care Team Providers Care Coding Technician Name Role Phone Robbie Ca MD Primary Care Provider + [phone] Garrett Gonzalez MD Unavailable [phone] Dixon Ca MD Unavailable [phone] Encounter Details Date Type Department Care Team [...] Description 07/04/2025 1:00 PM EST Office Visit [facility] [address] [place] [address] Dixon Ca MD [address] [place] [address], [address] [address] documented as of this encounter Visit Diagnoses Not on filedocumented in this encounter Care Teams Coding Technician Relationship Specialty Start Date End Date Robbie Ca MD [address] [place] [phone] PCP - General Family Medicine 01/21/25 Garrett Gonzalez MD [address] [address] Referring Physician Gastroenterology 03/07/25 Dixon Ca MD [address] [place] [address], [address] [place] [address] Surgeon General Surgery 04/18/25 documented as of this encounter
--- OUTSIDE RECORDS SUMMARY | 2025-06-14 12:12 | XMS_ITS | Encounter Summary ---
Author Organization [facility] Address [address] [place] [address] Care Team Providers Care Technical Operations Vice President Name Role Phone Robbie Ca MD Primary Care Provider +- [phone] Garrett Gonzalez MD Unavailable [phone] Dixon Ca MD Unavailable [phone] Encounter Details Date Type Department Care Team [...] Description 07/04/2025 1:00 PM EST Office Visit [facility] [address] [place] [address] Dixon Ca MD [address] [place] [address], [address] [address] documented as of this encounter Visit Diagnoses Not on filedocumented in this encounter Care Teams Technical Operations Vice President Relationship Specialty Start Date End Date Robbie Ca MD [address] [place] [address] [phone] PCP - General Family Medicine 01/21/25 Garrett Gonzalez MD [address] [address] Referring Physician Gastroenterology 03/07/25 Dixon Ca MD [address] [place] [address], [address] [place] [address] Surgeon General Surgery 04/18/25 documented as of this encounter
== END 2025-06-13 23:59 | disposition home or self-care (01) ==
LOC: LAB.DROPOF 06-14 12:09
PROVIDERS: PCP Family Medicine; Visit Provider Family Medicine
DX: K85.91 Acute pancreatitis with uninfected necrosis, unspecified (principal)
CPT/HCPCS: 80053; 85025